=== PATIENT | female | born 1970 | race Caucasian/White ===

== ENCOUNTER 2016-09-12 12:58 | Outpatient (RCR) | payer BC ==
[~2016-09-12 12:58] MED LIST: FUROSEMIDE; LVT.1T; SRTR100T
== END 2016-12-11 | disposition home or self-care (01) ==
LOC: CARD 12:58
PROVIDERS: ATTEND Internal Medicine
DX: R00.2 Palpitations (principal)
CPT/HCPCS: 93225; 93226

== ENCOUNTER → 2017-03-07 | Outpatient (CLI) | payer BC ==
--- NOTE | 2017-03-08 17:05 | Diagnostic Imaging Report ---
EXAMINATION: Bilateral digital screening mammogram with CAD. The current study was also evaluated with a Computer Aided Detection (CAD) system. INDICATION: Screening. No current complaints stated on the questionnaire. COMPARISON: 04/11/16. FINDINGS: The breasts are composed of scattered fibroglandular densities. There is an asymmetry in the medial aspect of the right breast with architectural distortion seen. This appears more prominent compared to the prior exam and appears to correlate with asymmetry along the central aspect of the right breast. Stable circumscribed nodule in the posterior aspect of the right breast is likely related to a benign process such as cysts or intramammary lymph nodes. The left breast demonstrates no definite change. IMPRESSION: Focal asymmetry in the central medial aspect of the right breast with the appearance of architectural distortion is seen. Focal compression views and ultrasound evaluation is recommended. ACR BI-RADS Category 0: Incomplete. (Needs additional imaging evaluation). Result letter will be mailed to the patient. Note: At least 10% of breast cancer is not imaged by mammography. Dictated by: Dictated on workstation # [id number]
== END ==
LOC: RAD 12:56
PROVIDERS: ATTEND Internal Medicine
DX: Z12.31 Encounter for screening mammogram for malignant neoplasm of breast (principal)
CPT/HCPCS: 77067

== ENCOUNTER → 2017-03-20 | Outpatient (CLI) | payer BC ==
--- NOTE | 2017-03-20 14:39 | Diagnostic Imaging Report ---
EXAMINATION: Right breast diagnostic mammogram with tomography. The current study was also evaluated with a Computer Aided Detection (CAD) system. COMPARISON: 04/11/2016. FINDINGS: There is a focal asymmetry with architectural distortion seen in the medial aspect of the right breast which persists on focal compression view in the CC projection. This is less apparent, however, on the MLO view and in the lateral projection. The etiology is uncertain. IMPRESSION: Persistent medial right breast architectural distortion. Ultrasound evaluation is pending. ACR BI-RADS Category 0: Incomplete. (Needs additional imaging evaluation). Result letter will be mailed to the patient. Note: At least 10% of breast cancer is not imaged by mammography. Dictated by: Dictated on workstation # [id number]
--- NOTE | 2017-03-20 15:25 | Diagnostic Imaging Report ---
EXAMINATION: Ultrasound of the right breast. INDICATION: Architectural distortion in the medial aspect of the right breast. FINDINGS: At the 1:30 o'clock position 7 cm from the nipple, there is a slightly heterogenous hypoechoic indeterminate poorly defined lesion with shadowing. There is no internal vascularity demonstrated. This is not clearly seen when scanned from different angles and is questioned to correlate with the abnormality seen on mammography. There is otherwise no mass or suspicious lesion seen in the 4 quadrants or retroareolar region. IMPRESSION: Poorly defined nonspecific hypoechoic area at the 1:30 position 7 cm from the nipple with shadowing but no internal vascularity. This probably correlates with the region of abnormality seen on mammography; however, its better seen on mammography and a stereotactic biopsy is recommended. The findings and recommendations were discussed personally with the patient at the time of dictation. A voice message about the findings was left for Dr. Gee by Dr. Tapia at the time of dictation. ACR BI-RADS Category 4B: Intermediate suspicion of malignancy. Result letter will be mailed to the patient. Report faxed to Dr. Gee at 3:23 p.m. 03/20/2017/cb Dictated by: Dictated on workstation # [id number]
== END ==
LOC: RAD 13:57
PROVIDERS: ATTEND Internal Medicine
DX: N63.12 Unspecified lump in the right breast, upper inner quadrant (principal)
CPT/HCPCS: 76641

== ENCOUNTER → 2017-03-23 | Outpatient (CLI) | payer BC ==
[~2017-03-23] VITALS: Ht 170.2 cm; Wt 112.0 kg
[~2017-03-23] MED LIST changes: +LIDOCAINE 1% INJ 20 ML (XYLOCAINE) VIAL INJ ONE; +NS (IVPB) 100 ML ONE
[2017-03-23 12:43] VITALS: BP 114/68
[2017-03-23 13:40] VITALS: BP 121/78
--- NOTE | 2017-03-24 08:28 | Diagnostic Imaging Report ---
EXAMINATION: Vacuum-assisted stereotactic breast biopsy , with clip placement, and specimen radiographs. INDICATION: Right breast architectural distortion . CONSENT: Informed consent was obtained from the patient. The risks, benefits, potential complications and alternatives were reviewed and all questions answered to the patient's satisfaction. PROCEDURE: The patient is positioned on the stereotactic mammography machine in sitting position. Prior mammograms were reviewed and based on the position of the architectural distortion, the appropriate the approach is selected. Initial stereotactic mammographic views at -15 and +15 degrees where performed and confirmation of localization of the lesion is performed. The localization is performed with the stereotactic software assistance and confirmed visually to match the area of interest. After satisfactory localization with initial stereotactic mammographic images, the biopsy tract approach is selected from superior to inferior with the skin site determined. After sterile preparation and draping, 1% lidocaine was utilized for local anesthesia. After confirming the targeted architectural distortion along the right breast, multiple vacuum-assisted stereotactic biopsies, with 8-gauge core needles, were performed. The specimen radiograph demonstrates no calcifications. Subsequently, a marking clip was placed at the site of the biopsy. Subsequently CC and lateral views mammogram is performed and confirms proper positioning of the clip. The patient tolerated the procedure well with no immediate complications. IMPRESSION: Successful stereotactic vacuum-assisted right breast biopsy for architectural distortion along the medial right breast. A marking clip was left in place. The specimen radiograph demonstrates the calcifications. Dictated by: Dictated on workstation # [id number]
== END ==
LOC: RAD 12:24
PROVIDERS: ATTEND Internal Medicine
DX: R92.8 Other abnormal and inconclusive findings on diagnostic imaging of breast (principal)
CPT/HCPCS: 19081

== ENCOUNTER 2017-04-11 08:54 | Outpatient (CLI) | payer BC ==
[~2017-04-11] VITALS: Ht 170.2 cm; Wt 125.2 kg
[~2017-04-11 08:54] MED LIST changes: -LIDOCAINE 1% INJ 20 ML (XYLOCAINE) VIAL INJ ONE; -NS (IVPB) 100 ML ONE
[2017-04-11] MEDS ORDERED: ESTR1PAT76 TD (10:46)
[2017-04-11] MEDS ORDERED: LEVO200T6 PO (10:46)
[2017-04-11] MEDS ORDERED: LIOT5TAB3 PO (10:46)
== END 2017-04-11 10:48 ==
LOC: PREOP 08:54
PROVIDERS: ATTEND Surgery
DX: Z01.818 Encounter for other preprocedural examination (principal); R92.8 Other abnormal and inconclusive findings on diagnostic imaging of breast

== ENCOUNTER 2017-04-13 07:23 | Day surgery (SDC) | payer BC ==
[~2017-04-13] VITALS: Ht 170.2 cm; Wt 125.2 kg
[~2017-04-13 07:23] MED LIST changes: +ESTR1PAT76 TD; +LEVO200T6 PO; +LIOT5TAB3 PO
--- OUTSIDE RECORDS SUMMARY | 2017-04-13 07:29 | XMS REPORT | Clinical Summary ---
Author Author User, [facility] Address Unknown Phone Allergies, Adverse Reactions, Alerts Allergy Name Reaction Description Start Date Severity Status Provider CODEINE Gastrointestinal problems, e.g., nausea, vomiting, diarrhea 2001 Critical Active Fanny Gee Conditions or Problems Problem Name Problem Code Onset Date Status Entry Date Provider Comment Standard Description Annotate INSOMNIA, CHRONIC 780.52 Resolved Fanny Gee Insomnia, unspecified DEPRESSION 311 Active Fanny Gee Depressive disorder, not elsewhere classified ANXIETY 300.00 Resolved Fanny Gee Anxiety state, unspecified WEIGHT GAIN, ABNORMAL 783.1 Active Fanny Gee Abnormal weight gain COLD INTOLERANCE 780.9 Resolved Fanny Gee Other general symptoms 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 Fanny Gee Other specified congenital anomalies of skin PARESTHESIA 782.0 Resolved Fanny Gee Disturbance of skin sensation HYPOTHYROIDISM 244.9 Active Fanny Gee Unspecified hypothyroidism AMENORRHEA 626.0 Resolved Fanny Gee Absence of menstruation DIZZINESS 780.4 Resolved Fanny Gee Dizziness and giddiness OM, ACUTE SEROUS 381.01 Resolved Fanny Gee Acute serous otitis media VERTIGO 780.4 Resolved Fanny Gee Dizziness and giddiness HAIR LOSS 704.00 Resolved Fanny Gee Alopecia, unspecified PELVIC PAIN 625.9 Resolved Fanny Gee Unspecified symptom associated with female genital organs WELL WOMAN V70.0 Resolved Fanny Gee Routine general medical examination at a health care facility OTITIS MEDIA 382.9 Resolved Fanny Gee Unspecified otitis media left SINUSITIS 473.9 Resolved Fanny Gee Unspecified sinusitis (chronic) AMENORRHEA 626.0 Resolved Fanny Gee Absence of menstruation DERMATITIS, CONTACT, NOS 692.9 Resolved Fanny Gee Contact dermatitis and other eczema, unspecified cause SCIATICA/HERNIATED DISC 722.10 Resolved Fanny Gee Displacement of lumbar intervertebral disc without myelopathy INFLUENZA W/MANIFESTATION NEC 487.8 Resolved Fanny Gee Influenza with other manifestations COUGH 786.2 Resolved Fanny Gee Cough HYPERGLYCEMIA, MILD 790.6 Resolved Fanny Gee Other abnormal blood chemistry HYPERCHOLESTEROLEMIA 272.0 Active Fanny Gee Pure hypercholesterolemia CARDIOMEGALY 429.3 Resolved Fanny Gee Cardiomegaly SCIATICA/HERNIATED DISC 722.10 Resolved Fanny Gee Displacement of lumbar intervertebral disc without myelopathy CHEST PAIN, ATYPICAL 786.59 Resolved Fanny Gee Other chest pain GERD 530.81 Active Fanny Gee Esophageal reflux BACK PAIN, LUMBAR, WITH RADICULOPATHY 724.4 Resolved Fanny Gee Thoracic or lumbosacral neuritis or radiculitis, unspecified CELLULITIS 682.9 Resolved Fanny Gee Cellulitis and abscess of unspecified sites HEADACHE 784.0 Resolved Fanny Gee Headache UTI 599.0 Resolved Fanny Gee Urinary tract infection, site not specified SYMPTOM, PAIN, ABDOMINAL, RIGHT LWR QUADRANT 789.03 Resolved Fanny Gee Abdominal pain, right lower quadrant DYSFUNCTIONAL UTERINE BLEEDING 626.8 Resolved Fanny Gee Other disorders of menstruation and other abnormal bleeding from female genital tract ANEMIA NOS 285.9 Resolved Fanny Gee Anemia, unspecified MENOPAUSAL SYNDROME 627.0 Resolved Fanny Gee Premenopausal menorrhagia RHINITIS 472.0 Resolved Fanny Gee Chronic rhinitis CONSTIPATION, CHRONIC 564.09 Resolved Fanny Gee Other constipation SINUSITIS, SPHENOIDAL, ACUTE 461.3 Resolved Fanny Gee Acute sphenoidal sinusitis VAGINITIS, ATROPHIC 627.3 Resolved Fanny Gee Postmenopausal atrophic vaginitis HEADACHE 784.0 Resolved Fanny Gee Headache MALE PATTERN BALDNESS 704.00 Resolved Fanny Gee Alopecia, unspecified LEG PAIN, RIGHT 729.5 Resolved Fanny Gee Pain in limb LUMBAR RADICULOPATHY, RIGHT 724.4 Active Fanny Gee Thoracic or lumbosacral neuritis or radiculitis, unspecified MUSCLE PAIN 729.1 Resolved Fanny Gee Myalgia and myositis, unspecified BRONCHITIS 490 Resolved Fanny Gee Bronchitis, not specified as acute or chronic PNEUMONIA 486 Resolved Fanny Gee Pneumonia, organism unspecified DEHYDRATION 276.51 Resolved Fanny Gee Dehydration HAIR LOSS 704.00 Resolved Fanny Gee Alopecia, unspecified CELLULITIS 682.9 Resolved Fanny Gee Cellulitis and abscess of unspecified sites EAR PAIN, BILATERAL 388.70 Resolved Fanny Gee Otalgia, unspecified SHOULDER PAIN 719.41 Resolved Fanny Gee Pain in joint involving shoulder region FOOT PAIN, LEFT 729.5 Resolved Fanny Gee Pain in limb MIGRAINE VARIANT 346.20 Active Fanny Gee Variants of migraine, not elsewhere classified, without mention of intractable migraine, without mention of status migrainosus LIPOMA, SKIN 214.1 Resolved Fanny Gee Lipoma of other skin and subcutaneous tissue ALLERGIC RHINITIS, SEASONAL 477.0 Resolved Fanny Gee Allergic rhinitis due to pollen HRT V07.4 Active Fanny Gee Hormone replacement therapy (postmenopausal) UNSPECIFIED VITAMIN D DEFICIENCY 268.9 Active Fanny Gee Unspecified vitamin D deficiency KNEE PAIN 719.46 Resolved Fanny Gee Pain in joint involving lower leg CERVICAL LYMPHADENOPATHY 785.6 Resolved Fanny Gee Enlargement of lymph nodes HEALTH SCREENING V70.0 Inactive Fanny Gee Routine general medical examination at a health care facility SINUSITIS, SPHENOIDAL, ACUTE 461.3 Inactive Fanny Gee Acute sphenoidal sinusitis BENIGN POSITIONAL VERTIGO 386.11 Inactive Fanny Gee Benign paroxysmal positional vertigo ACHILLES TENDINITIS 726.71 Resolved Fanny Gee Achilles bursitis or tendinitis SINUSITIS, SPHENOIDAL, ACUTE 461.3 Resolved Fanny Gee Acute sphenoidal sinusitis BRONCHITIS 490 Inactive Fanny Gee Bronchitis, not specified as acute or chronic UTI 599.0 Inactive Fanny Gee Urinary tract infection, site not specified HEALTH SCREENING V70.0 Resolved Fanny Gee Routine general medical examination at a health care facility SINUSITIS, SPHENOIDAL, ACUTE 461.3 Resolved Fanny Gee Acute sphenoidal sinusitis ELEVATED BLOOD PRESSURE WITHOUT DIAGNOSIS OF HYPERTENSION 796.2 Active Fanny Gee Elevated blood pressure reading without diagnosis of hypertension Medication List Medication Instructions Start Date Stop Date Generic Name NDC Status Provider Patient Instruction ESTRACE 1 MG TAB 1 PO daily ESTRADIOL 77617376370 Active Starr Aldridge VOLTAREN 75 MG EC TAB 1 PO BID prn DICLOFENAC SODIUM Active Fanny Gee POTASSIUM CHLORIDE 10 MEQ TBCR 1 PO daily prn POTASSIUM CHLORIDE 24221183549 Active Fanny Gee LASIX 20 MG TABS 1 PO daily prn FUROSEMIDE 73279611525 Active Fanny Gee PRAVACHOL 20 MG TAB 1 PO daily PRAVASTATIN SODIUM 28780308366 No Longer Active Fanny Gee CEFDINIR 300 MG CAPS 1 PO BID CEFDINIR 83756414597 No Longer Active aFnny CLEMONS'S NASAL SPRAY (DEXAMETHASONE, GENTAMICIN, SALINE) 2 puffs each nostril TID for [address] CLEMONS'S NASAL SPRAY ( DEXAMETHASONE, GENTAMICIN, SALINE) No Longer Active Fanny Kat Gee FLUTICASONE PROPIONATE 50 MCG/ACT SUSP 2 puffs each nostril daily FLUTICASONE PROPIONATE 79452272697 Active Fanny Kat Gee VALIUM 2 MG TAB 1 po QHS prn neck spasm DIAZEPAM 26334206434 No Longer Active Fanny Kat Gee XANAX 0.25 MG TABS 1 PO Q6hrs prn ALPRAZOLAM 60188072059 No Longer Active Fanny Kat Gee MULTIVITAMINS TABS 1 PO QD MULTIPLE VITAMIN 66224159089 No Longer Active Fanny Kat Gee PHENTERMINE HCL 37.5 MG CAPS 1 PO Daily PHENTERMINE HCL 12938471677 No Longer Active Fanny Kat Gee TESSALON 200 MG CAPS 1 PO TID prn cough BENZONATATE No Longer Active Fanny Kat Gee PYRIDIUM 200 MG TAB 1 PO TID prn urinary urgency PHENAZOPYRIDINE HCL 64123792653 No Longer Active Fanny Kat Gee AUGMENTIN 500-125 MG TAB 1 PO BID AMOXICILLIN-POT CLAVULANATE 49900170505 No Longer Active Fanny Kat Gee TOPAMAX 25 MG TABS 1 PO BID TOPIRAMATE 87613761474 Active Fanny Kat Gee MECLIZINE HCL 25 MG TAB 1 PO Q6hrs prn dizziness MECLIZINE HCL 86369353902 No Longer Active Fanny Kat Gee PERCOCET 10-325 MG TABS take 1 upto q 4 hours prn pain. OXYCODONE-ACETAMINOPHEN 56018307604 No Longer Active Fanny Kat Gee ULTRAM 50 MG TAB 1 po Q 6hrs prn pain TRAMADOL HCL 44181442382 No Longer Active Fanny Gee OMEPRAZOLE 20 MG CPDR 1 PO daily OMEPRAZOLE 88928938888 Active Starr CLEMONS'Roberta NASAL SPRAY (DEXAMETHASONE, GENTAMICIN, SALINE) 2 puffs each nostril TID for [address] HOPPER NASAL SPRAY ( DEXAMETHASONE, GENTAMICIN, SALINE) No Longer Active Fanny Gee BIOTIN 10 MG TABS 1 po daily BIOTIN 45687236886 No Longer Active Fanny Gee FLEXERIL 10 MG TAB 1 PO QHS prn neck pain CYCLOBENZAPRINE HCL 34974878715 No Longer Active Fanny Gee FLONASE 50 MCG/DOSE INHALANT 2 puffs each nostril daily FLONASE 50 MCG/DOSE INHALANT No Longer Active Fanny Gee PREMARIN 0.625 MG/GM CREA Apply as directed to affected areas ESTROGENS, CONJUGATED VAGINAL 84755885123 No Longer Active Fanny Gee TUMS 500 MG CHEW as needed at night CALCIUM CARBONATE ANTACID 64308412392 No Longer Active Fanny Gee LIPITOR 20 MG TAB 1 PO QD ATORVASTATIN CALCIUM 63130734550 No Longer Active Fanny Gee SYNTHROID 200 MCG TABS 1 PO daily with 25 mcg to total 225 mcg daily LEVOTHYROXINE SODIUM 82819725044 Active Fanny Gee SYNTHROID 0.025 MG TAB 1 PO Daily along with 200 mcg to total 225 mcg daily LEVOTHYROXINE SODIUM 77016795175 Active Fanny Gee PREDNISONE 20 MG TAB 3 pills daily at once for 2 days, 2 pills daily at once for 2 days, 1 once daily for 2 days PREDNISONE 32561412516 No Longer Active Fanny Gee LORTAB 7.5-500 MG/15ML ELIX 1 tsp q 4-6 hrs prn HYDROCODONE-ACETAMINOPHEN 99863354833 No Longer Active Fanny Kat Gee PHENTERMINE HCL 37.5 MG CAPS 1 PO Daily PHENTERMINE HCL 97893680120 No Longer Active Fanny Kat Gee TAMIFLU 75 MG CAPS 1 PO BID OSELTAMIVIR PHOSPHATE 01921206639 No Longer Active Melany Garcia LIPITOR 20 MG TAB 1 PO QD ATORVASTATIN CALCIUM 02783065637 No Longer Active Starr [place] ZOLOFT 50 MG TAB 1 PO daily with 100mg to equal 150mg daily SERTRALINE HCL 05244786216 Active Starr Aldridge ZOLOFT 100 MG TAB 1 PO daily with 50mg dosing to equal 150mg PO daily SERTRALINE HCL 09547558523 Active Starr Aldridge TOPAMAX 25 MG TABS 1 PO BID TOPIRAMATE 76769271069 No Longer Active Fanny Kat Gee PREDNISONE 20 MG TAB 2 pills at once for 2 days then 1 pill daily for 2 days PREDNISONE 69651482469 No Longer Active Fanny Kat Gee VITAMIN D 1000 UNIT TABS 2 PO Daily CHOLECALCIFEROL 65803960989 Active Starr Luis Carlos RITALIN 10 MG TABS 1 PO BID METHYLPHENIDATE HCL 09997325556 No Longer Active Fanny Kat Gee CYTOMEL 5 MCG TABS 1 PO daily LIOTHYRONINE SODIUM 81596360393 Active Fanny Kat Gee SOMA 350 MG TABS 1 PO qhs prn CARISOPRODOL 67363528479 Active Fanny Kat Gee BIAXIN XL PAC 500 MG TB24 2 pills at same time daily for 7 days CLARITHROMYCIN 10940650946 No Longer Active Fanny Kat Gee HYDROCODONE-HOMATROPINE SYRP 1 teaspoon PO Q4-6 hrs prn HYDROCODONE-HOMATROPINE SYRP 93905539730 No Longer Active Fanny Kat Gee AUGMENTIN 500-125 MG TAB 1 PO BID AMOXICILLIN-POT CLAVULANATE 72886525229 No Longer Active Fanny Kat Gee PHENTERMINE HCL 37.5 MG CAPS 1 PO Daily PHENTERMINE HCL 50720541880 No Longer Active Fanny Kat Gee PYRIDIUM 200 MG TABS 1 po TID PHENAZOPYRIDINE HCL 28803524730 No Longer Active Fanny Kat Gee PREMARIN 0.625 MG TABS 1 PO daily ESTROGENS CONJUGATED 03470954995 No Longer Active Fanny Kat Gee ZOLOFT 50 MG TABS 1 PO daily with 100mg tablet to egual 150mg SERTRALINE HCL 48944505543 No Longer Active Fanny Kat Gee ESTRADERM 0.1 MG/24HR PTTW 1 patch every week ESTRADIOL 71396616141 No Longer Active Fanny Kat Gee PHENTERMINE HCL 37.5 MG CAPS 1 PO Daily PHENTERMINE HCL 37302025147 No Longer Active Fanny Kat Gee LORTAB 5 5-500 MG TABS 1 to 2 PO Q6hrs prn ACETAMINOPHEN-HYDROCODONE 12864801574 No Longer Active Fanny Kat Gee EXCEDRIN MIGRAINE 250-250-65 MG TABS as directed [id number] 99788756877 No Longer Active Fanny Kat Gee REGLAN 10 MG TAB 1 PO Q 6 hours prn dizziness METOCLOPRAMIDE HCL 63518516881 No Longer Active Fanny Kat Gee PREDNISONE 20 MG TAB 3 pills daily at once for 2 days, 2 pills daily at once for 2 days, 1 once daily for 2 days PREDNISONE 07315389783 No Longer Active Fanny Kat Gee THA 180 MG TABS 1 PO QD for allergies FEXOFENADINE HCL 06697211912 No Longer Active Fanny Kat CLEMONS'Roberta NASAL SPRAY (DEXAMETHASONE, GENTAMICIN, SALINE) 2 puffs each nostril TID for [address] HOPPER NASAL SPRAY ( DEXAMETHASONE, GENTAMICIN, SALINE) No Longer Active Fanny Kat Gee AUGMENTIN 500-125 MG TAB 1 PO BID AMOXICILLIN-POT CLAVULANATE 96894859766 No Longer Active Fanny Kat Gee TRANSDERM-SCOP 1.5 MG PT72 1 patch behind ear every 3 days 12/12 SCOPOLAMINE BASE 40592305929 No Longer Active Fanny Kat Gee PREMARIN 0.3 MG TABS 1 PO daily ESTROGENS CONJUGATED 33356663764 No Longer Active Fanny Kat Gee KENALOG 0.1 % CREA Apply to ears sparingling daily as needed. TRIAMCINOLONE ACETONIDE 34480623934 No Longer Active Fanny Kat Gee LUNESTA 2 MG TABS 1 PO daily at HS as needed ESZOPICLONE 95131059280 No Longer Active Fanny Kat Gee LO/OVRAL 0.3-30 MG-MCG TABS as directed NORGESTREL-ETHINYL ESTRADIOL 06865935728 No Longer Active Fanny Kat Gee PREMARIN 0.625 MG TABS 1 PO daily ESTROGENS CONJUGATED 05823936720 No Longer Active Fanny Kat Gee VOLTAREN-XR 100 MG TB24 1 PO daily DICLOFENAC SODIUM 94561271509 No Longer Active Fanny Kat Gee FLEXERIL 10 MG TAB 1 PO QHS CYCLOBENZAPRINE HCL 15264501546 No Longer Active Fanny Kat Gee PYRIDIUM 200 MG TAB 1 PO TID for 3 days PHENAZOPYRIDINE HCL 53257547449 No Longer Active Fannylianna Gee LEVAQUIN 500 MG TAB 1 PO QD for 7 days LEVOFLOXACIN 24232398222 No Longer Active Fanny Kat Gee PRILOSEC 20 MG CAP CR 1 PO BID OMEPRAZOLE 88640585799 No Longer Active Fanny Kat Gee TAMIFLU 75 MG CAPS 1 PO BID for 5 days OSELTAMIVIR PHOSPHATE 69814304134 No Longer Active Fanny Kat Gee CODICLEAR DH 5-100 MG/5ML SYRP 5 cc Po Q4-6prn HYDROCODONE-GUAIFENESIN 26089302535 No Longer Active Fannylianna Gee HARRIS (DROSPIRENONE/ETHINYL ESTRADIOL) 3MG/20MCG as directed HARRIS (DROSPIRENONE/ETHINYL ESTRADIOL) 3MG/20MCG No Longer Active Jazlyn Figueroa TAM 28 3-0.03 MG TABS as directed DROSPIRENONE- ETHINYL ESTRADIOL 53450030005 No Longer Active Fannylianna Gee ORTHO TRI-CYCLEN LO 0.025 MG TABS as directed NORGESTIMATE-ETHINYL ESTRADIOL 85025028475 No Longer Active Fannylianna Gee AUGMENTIN 500-125 MG TAB 1 PO BID AMOXICILLIN-POT CLAVULANATE 75308512884 No Longer Active Fannylianna CLEMONS'S NASAL SPRAY (DEXAMETHASONE, GENTAMICIN, SALINE) 2 puffs each nostril BID DR. CLEMONS'S NASAL SPRAY (DEXAMETHASONE, GENTAMICIN, SALINE) No Longer Active Fanny Gee PRILOSEC 20 MG CAP CR 1 PO QD OMEPRAZOLE 02170557676 No Longer Active Fannylianna Gee WELLBUTRIN XL 150 MG TB24 1/2 daily BUPROPION HCL 81510973459 No Longer Active Fanny Kat Gee LEXAPRO 10 MG TABS 1 daily ESCITALOPRAM OXALATE 37815792463 No Longer Active Fanny Kat Gee TANAFED DP 2.5-75 MG/5ML SUSP 10-20 cc po q 12 hrs. prn DEXCHLORPHEN GUSTAFSON-PSE GUSTAFSON 90361987032 No Longer Active Fanny Kat Gee RYNATAN 9-25 MG TABS 1-2 pills po Q 12 hrs prn CHLORPHEN GUSTAFSON-PHENYLEPH GUSTAFSON 47582059224 No Longer Active Fanny Kat Gee ANTIVERT 25 MG TABS 1 tab q 6h prn MECLIZINE HCL 13557264745 No Longer Active Fanny Kat Gee AFRIN NASAL SPRAY 0.05 % SOLN 1 puff each nostril BID OXYMETAZOLINE HCL 96583631338 No Longer Active Fanny Kat Gee WELLBUTRIN SR 150 MG TBCR 1 PO QAM BUPROPION HCL 70764370392 No Longer Active Fanny Kat Gee WELLBUTRIN XL 300 MG TB24 1 po daily BUPROPION HCL 59930313643 No Longer Active Fanny Kat Gee LASIX 20 MG TABS 1 po qod FUROSEMIDE 74528518810 No Longer Active Fanny Kat Gee POTASSIUM CHLORIDE 10 MEQ TBCR 1 tab po daily prn along with Lasix POTASSIUM CHLORIDE 60789936868 No Longer Active Fanny Kat Gee AMBIEN 10 MG TABS 1 PO QHS prn ZOLPIDEM TARTRATE 26002734479 No Longer Active Fanny Kat Gee Vital Signs Date Name Value Unit Range Description blood pressure, diastolic - 8462-4 110 mm[Hg] BP choi blood pressure, systolic - 8480-6 140 mm[Hg] BP sys pulse rate E&M - 8867-4 72 /min Heart rate respiratory rate E&M - 9279-1 14 /min Resp rate temperature E&M 98.6 [degF] Body temperature blood pressure, diastolic - 8462-4 84 mm[Hg] BP choi blood pressure, systolic - 8480-6 138 mm[Hg] BP sys pulse rate E&M - 8867-4 64 /min Heart rate respiratory rate E&M - 9279-1 14 /min Resp rate temperature E&M 97.3 [degF] Body temperature weight E&M - 3141-9 267 [lb_av] Weight Measured blood pressure, diastolic - 8462-4 74 mm[Hg] BP choi blood pressure, systolic - 8480-6 128 mm[Hg] BP sys pulse rate E&M - 8867-4 74 /min Heart rate respiratory rate E&M - 9279-1 12 /min Resp rate weight E&M - 3141-9 265 [lb_av] Weight Measured Diagnostic Results Date Name Value Unit Range Description Clinical Lists Update: CBC,CMP,FLP,TSH,Free T4 - Chemistry albumin, serum 4.1 g/dL alanine aminotransferase (SGPT), serum 15 U/L urea nitrogen, blood 13 mg/dL calcium, serum 9.2 mg/dL chloride, serum 107 mmol/L cholesterol, serum 252 mg/dL carbon dioxide, venous blood 18 mmol/L creatinine, serum 0.87 mg/dL thyroxine, serum, free 1.1 ng/dL HDL cholesterol, serum 57 mg/dL thyroid stimulating hormone, serum 3.21 u[iU]/mL LDL cholesterol, serum 163 mg/dL potassium, serum 4.7 mmol/L protein, total, serum 6.8 g/dL aspartate aminotransferase (SGOT), serum 18 U/L Estimated Glomerular Filtration Rate (calc) 81 mL/min/1.73m2 glucose, plasma fasting 108 mg/dL cholesterol/HDL ratio, serum, percent 4.4 sodium, serum 139 mmol/L triglyceride, serum, fasting 161 mg/dL bilirubin, serum, total 0.3 mg/dL alkaline phosphatase, serum 107 U/L Clinical Lists Update: CBC,CMP,FLP,TSH,Free T4 - Hematology hemoglobin, blood 14.0 g/dL hematocrit, blood 41.1 % platelet count 301 10*3/mm3 erythrocyte (RBC) count 4.51 10*6/mm3 leukocyte count, blood 8.7 10*3/mm3 mean corpuscular volume, RBC 91.3 fL red blood cell distribution width 13.7 % Clinical Lists Update: CMP,FLP,TSH,FREE T4 - Chemistry potassium, serum 4.2 mmol/L albumin, serum 4.3 g/dL aspartate aminotransferase (SGOT), serum 36 U/L alanine aminotransferase (SGPT), serum 57 U/L bilirubin, serum, total 0.4 mg/dL sodium, serum 135 mmol/L glucose, plasma fasting 108 mg/dL Estimated Glomerular Filtration Rate (calc) 105 mL/min/1.73m2 creatinine, serum 0.70 mg/dL carbon dioxide, venous blood 20 mmol/L chloride, serum 106 mmol/L calcium, serum 8.8 mg/dL urea nitrogen, blood 16 mg/dL alkaline phosphatase, serum 111 U/L protein, total, serum 6.9 g/dL Encounters Code Encounter Date Provider Facility CPT-16134 Ofc Vst, Est Level IV 17:11:39 CDT Fannylianna Granados Gee, DO, FACP CPT-07552 Ofc Vst, Est Level III 15:00:51 [facility] Fanny Granados Marlen, DO, FACP CPT-65014 Ofc Vst, Est Level III 18:56:53 CDT Fanny Kat Granados Marlen, DO, FACP CPT-21820 Ofc Vst, Est Level IV 15:50:14 DAIRY NUTRITION SPECIALIST Fanny Gee [facility] CPT-51589 Ofc Vst, Est Level III 20:51:14 DA[facility] NUTRITION SPECIALIST Fanny Granados Marlen, DO, FACP CPT-09871 Ofc Vst, Est Level III 16:54:39 [facility]UTR[facility] SPECIALIST Fanny Granados Marlen, DO, FACP CPT-73224 Ofc Vst, Est Level IV 14:17:18 DA[facility]UTR[facility] SPECIALIST Fanny Granados Marlen, DO, FACP CPT-45066 Ofc Vst, Est Level III 18:54:59 CDT Fannylianna Gee [facility] CPT-54900 Ofc Vst, Est Level III 17:02:21 CDT Fanny Stephens Gee Fanny Granados Marlen, DO, FACP CPT-08255 Ofc Vst, Est Level III 20:38:41 CDT Fanny Kat Granados Marlen, DO, FACP CPT-89431 Ofc Vst, Est Level III 16:12:14 CDT Fanny Stephens Gee Fanny Roberta Marlen, DO, FACP CPT-44893 Ofc Vst, Est Level IV 16:33:19 DA[facility]UTRITION SPECIALIST Fanny Stephens Marlen Fanny Roberta Marlen, DO, FACP CPT-76605 Ofc Vst, Est Level IV 14:45:33 DA[facility] NUTRITION SPECIALIST Fanny Katjohn Granados Gee, DO, FACP CPT-81737 Ofc Vst, Est Level IV 10:54:54 CDT Fanny Kat Granados Gee, DO, FACP CPT-69533 Ofc Vst, Est Level IV 10:49:11 CDT Fanny Kat Granados Gee, DO, FACP CPT-92780 Ofc Vst, Est Level IV 10:56:58 CDT Fanny Kat Granados Gee, DO, FACP CPT-83692 Ofc Vst, Est Level IV 11:41:19 CDT Fanny Kat Gee [facility] CPT-04801 Ofc Vst, Est Level III 13:40:53 CDT Fanny Kat Granados Marlen, DO, FACP CPT-32429 Ofc Vst, Est Level IV 10:26:27 CDT Fanny Kat Granados Gee, DO, FACP CPT-89997 Ofc Vst, Est Level IV 11:15:45 CDT Fanny Kat Granados Gee, DO, FACP CPT-94635 Ofc Vst, Est Level IV 11:16:53 [facility] SPECIALIST Fanny Granados Gee, DO, FACP CPT-55144 Ofc Vst, Est Level IV 11:28:33 DA[facility]UTRITION SPECIALIST Fanny Granados Gee, DO, FACP CPT-61138 Ofc Vst, Est Level III 09:49:10 DA[facility] SPECIALIST Fanny Kat Granados Gee, DO, FACP CPT-07406 Ofc Vst, Est Level IV 15:49:05 CDT Fannylianna Granados Gee, DO, FACP CPT-84571 Ofc Vst, Est Level IV 15:51:31 CDT Fannylianna Gee [facility] CPT-10729 Ofc Vst, Est Level IV 16:47:19 CDT Fanny Kat Granados Gee, DO, FACP CPT-08219 Ofc Vst, Est Level IV 13:33:43 CDT Fanny Kat Mccurdyi S Gee, DO, FACP CPT-63683 Ofc Vst, Est Level IV 14:07:16 CDT Fanny Kat Escobedo S Gee, DO, FACP CPT-31333 Ofc Vst, Est Level V 11:27:11 CDT Fanny Kat Mccurdyi S Gee, DO, FACP CPT-61972 Ofc Vst, Est Level IV 13:43:55 CDT Fanny Kat Mccurdyi S Gee, DO, FACP CPT-23788 Ofc Vst, Est Level V 15:24:57 DA[facility] NUTRITION SPECIALIST Fanny Kat Granados Marlen, DO, FACP CPT-15093 Ofc Vst, Est Level III 14:58:05 CDT Fanny Kat Granados Gee, DO, FACP CPT-62484 Ofc Vst, Est Level IV 15:58:13 CDT Fanny Kat Escobedo S Marlen, DO, FACP CPT-85546 Ofc Vst, Est Level IV 13:05:38 CDT Fanny Kat Granados Marlen, DO, FACP CPT-73528 Ofc Vst, Est Level III 17:07:21 CDT Fanny Kat Escobedo S Marlen, DO, FACP CPT-84145 Ofc Vst, Est Level III 14:58:29 CDT Fanny Kat Cuetoner Fanny S Marlen, DO, FACP CPT-98342 Ofc Vst, Est Level IV 16:06:24 CDT Fanny Kat Escobedo S Marlen, DO, FACP CPT-00835 Ofc Vst, Est Level III 09:33:36 DA[facility]UTRITION SPECIALIST Fanny Kat Marlen Fanny Roberta Marlen, DO, FACP CPT-78136 Ofc Vst, Est Level IV 10:26:53 DAIR[facility] NUTRITION SPECIALIST Fanny Stephens Marlen Fanny Roberta Marlen, DO, FACP CPT-90974 Ofc Vst, Est Level IV 15:05:57 DA[facility] NUTRITION SPECIALIST Fanny Stephens Marlen Fanny Roberta Marlen, DO, FACP CPT-85521 Ofc Vst, Est Level IV 10:19:01 CDT Fannylianna Stephens Gee Fanny Granados Marlen, DO, FACP CPT-70673 Ofc Vst, Est Level IV 09:02:12 CDT Fanny Kat Marlen Gee, DO, FACP CPT-51547 Ofc Vst, Est Level IV 10:02:49 CDT Fannylianna Stephens Marlen Gee, DO, FACP CPT-72213 Ofc Vst, Est Level IV 10:50:47 CDT Fannylianna Gee [facility] [place] CPT-42611 Ofc Vst, Est Level IV 16:08:32 CDT Fanny Gee [facility] [place] CPT-03861 Ofc Vst, Est Level III 15:15:07 [employer] [employer] SPECIALIST Fanny Gee [facility] [place] CPT-03600 Ofc Vst, Est Level IV 10:48:07 DA[employer] NUTR[employer] SPECIALIST Fanny Gee [facility] [place] CPT-77329 Ofc Vst, Est Level IV 13:57:22 DA[employer] NUTRITION SPECIALIST Fanny Gee [facility] [place] CPT-14976 Ofc Vst, Est Level III 15:02:05 CDT Fanny Gee [facility] [place] CPT-08717 Ofc Vst, Est Level II 11:50:49 DA[employer] NUTRITION SPECIALIST Fanny Gee [facility] [place] CPT-36430 Ofc Vst, Est Level IV 12:35:56 DA[employer] NUTR[employer] SPECIALIST Fanny Gee [facility] [place] CPT-51548 Ofc Vst, Est Level IV 18:55:46 CDT [facility] Katjohn Gee [facility] [place] CPT-50607 Ofc Vst, Est Level III 12:38:26 DA[employer] NUTRITION SPECIALIST [facility] Kat Gee [facility] [place] CPT-85943 Ofc Vst, Est Level III 17:46:49 DA[employer] NUTRITION SPECIALIST [facility] Kat Gee [facility] [place] CPT-95656 Ofc Vst, Est Level III 19:52:42 CDT Fanny Kat Gee [facility] [place] CPT-08253 Ofc Vst, Est Level IV 16:59:09 CDT [facility] Katjohn Gee [facility] [place] CPT-18478 Ofc Vst, Est Level III 12:31:11 CDT [facility] Kat Gee [facility] [place] CPT-63341 Ofc Vst, New Level III 11:16:59 CDT [facility] Katjohn Gee [facility] [place] Procedures Code Procedure Name Date Entry Date Standard Description CPT-36317 Preventive, Est, (40-64) 17:46:08 CDT CPT-77830 Preventive, Est, (40-64) 13:13:00 CDT CPT-89257 Preventive, Est, (18-39) 15:11:32 CDT
[2017-04-13] MEDS ORDERED: LIDOCAINE 1% INJ 20 ML (XYLOCAINE) VIAL ONE ×2 (07:30→09:50)
--- OUTSIDE RECORDS SUMMARY | 2017-04-13 07:30 | XMS REPORT | Clinical Summary ---
[...] 1 MG TAB 1 PO daily ESTRADIOL [id number] Active Fanny Gee VOLTAREN 75 MG EC TAB 1 PO BID prn DICLOFENAC SODIUM Active Fanny Gee POTASSIUM CHLORIDE 10 MEQ TBCR 1 PO daily prn POTASSIUM CHLORIDE 25844583029 Active Fanny Gee LASIX 20 MG TABS 1 PO daily prn FUROSEMIDE 53549516581 Active Fanny Gee PRAVACHOL 20 MG TAB 1 PO daily PRAVASTATIN SODIUM 74818669521 No Longer Active Fanny Gee CEFDINIR 300 MG CAPS 1 PO BID CEFDINIR 83377413143 No Longer Active Fanny CLEMONS'S NASAL SPRAY (DEXAMETHASONE, GENTAMICIN, SALINE) 2 puffs each nostril TID for [address] CLEMONS'S NASAL SPRAY ( DEXAMETHASONE, GENTAMICIN, SALINE) No Longer Active Fanny Kat Gee FLUTICASONE PROPIONATE 50 MCG/ACT SUSP 2 puffs each nostril daily FLUTICASONE PROPIONATE 95493071974 Active Fanny Kat Gee VALIUM 2 MG TAB 1 po QHS prn neck spasm DIAZEPAM 49493172753 No Longer Active Fanny Kat Gee XANAX 0.25 MG TABS 1 PO Q6hrs prn ALPRAZOLAM 73248604078 No Longer Active Fanny Kat Gee MULTIVITAMINS TABS 1 PO QD MULTIPLE VITAMIN 98287956701 No Longer Active Fanny Kat Gee PHENTERMINE HCL 37.5 MG CAPS 1 PO Daily PHENTERMINE HCL 10112661393 No Longer Active Fanny Kat Gee TESSALON 200 MG CAPS 1 PO TID prn cough BENZONATATE No Longer Active Fanny Kat Gee PYRIDIUM 200 MG TAB 1 PO TID prn urinary urgency PHENAZOPYRIDINE HCL 87041040637 No Longer Active Fanny Kat Gee AUGMENTIN 500-125 MG TAB 1 PO BID AMOXICILLIN-POT CLAVULANATE 55737693599 No Longer Active Fanny Kat Gee TOPAMAX 25 MG TABS 1 PO BID TOPIRAMATE 78724389774 Active Fanny Kat Gee MECLIZINE HCL 25 MG TAB 1 PO Q6hrs prn dizziness MECLIZINE HCL 22816415169 No Longer Active Fanny Kat Gee PERCOCET 10-325 MG TABS take 1 upto q 4 hours prn pain. OXYCODONE-ACETAMINOPHEN 33183381330 No Longer Active Fanny Kat Gee ULTRAM 50 MG TAB 1 po Q 6hrs prn pain TRAMADOL HCL 45435051549 No Longer Active Fanny Gee OMEPRAZOLE 20 MG CPDR 1 PO daily OMEPRAZOLE 72227990798 Active Fanny CLEMONS'Roberta NASAL SPRAY (DEXAMETHASONE, GENTAMICIN, SALINE) 2 puffs each nostril TID for [address] HOPPER NASAL SPRAY ( DEXAMETHASONE, GENTAMICIN, SALINE) No Longer Active Fanny Gee BIOTIN 10 MG TABS 1 po daily BIOTIN 18902403534 No Longer Active Fanny Gee FLEXERIL 10 MG TAB 1 PO QHS prn neck pain CYCLOBENZAPRINE HCL 28757029489 No Longer Active Fanny Gee FLONASE 50 MCG/DOSE INHALANT 2 puffs each nostril daily FLONASE 50 MCG/DOSE INHALANT No Longer Active Fanny Gee PREMARIN 0.625 MG/GM CREA Apply as directed to affected areas ESTROGENS, CONJUGATED VAGINAL 78362088427 No Longer Active Fanny Gee TUMS 500 MG CHEW as needed at night CALCIUM CARBONATE ANTACID 81886363836 No Longer Active Fanny Gee LIPITOR 20 MG TAB 1 PO QD ATORVASTATIN CALCIUM 87494524253 No Longer Active Fanny Gee SYNTHROID 200 MCG TABS 1 PO daily with 25 mcg to total 225 mcg daily LEVOTHYROXINE SODIUM 50845737807 Active Fanny Gee SYNTHROID 0.025 MG TAB 1 PO Daily along with 200 mcg to total 225 mcg daily LEVOTHYROXINE SODIUM 09560130686 Active Fanny Gee PREDNISONE 20 MG TAB 3 pills daily at once for 2 days, 2 pills daily at once for 2 days, 1 once daily for 2 days PREDNISONE 79015115764 No Longer Active Fanny Gee LORTAB 7.5-500 MG/15ML ELIX 1 tsp q 4-6 hrs prn HYDROCODONE-ACETAMINOPHEN 22172789978 No Longer Active Fannylianna Gee PHENTERMINE HCL 37.5 MG CAPS 1 PO Daily PHENTERMINE HCL 99218532180 No Longer Active Fannylianna Gee TAMIFLU 75 MG CAPS 1 PO BID OSELTAMIVIR PHOSPHATE 24903140600 No Longer Active Melany Dukesinosa LIPITOR 20 MG TAB 1 PO QD ATORVASTATIN CALCIUM 26815585709 No Longer Active Starr Aldridge ZOLOFT 50 MG TAB 1 PO daily with 100mg to equal 150mg daily SERTRALINE HCL 85749904837 Active Fannylianna Gee ZOLOFT 100 MG TAB 1 PO daily with 50mg dosing to equal 150mg PO daily SERTRALINE HCL 12136401656 Active Fanny Kat Gee TOPAMAX 25 MG TABS 1 PO BID TOPIRAMATE 23666382480 No Longer Active Fannylianna Gee PREDNISONE 20 MG TAB 2 pills at once for 2 days then 1 pill daily for 2 days PREDNISONE 32379213755 No Longer Active Fanny Gee VITAMIN D 1000 UNIT TABS 2 PO Daily CHOLECALCIFEROL 45566219231 Active Starr Aldridge RITALIN 10 MG TABS 1 PO BID METHYLPHENIDATE HCL 50193425614 No Longer Active Fannylianna Gee CYTOMEL 5 MCG TABS 1 PO daily LIOTHYRONINE SODIUM 64820725739 Active Fanny Kat Gee SOMA 350 MG TABS 1 PO qhs prn CARISOPRODOL 37173588115 Active Fannylianna Gee BIAXIN XL PAC 500 MG TB24 2 pills at same time daily for 7 days CLARITHROMYCIN 58208138286 No Longer Active Fannylianna Gee HYDROCODONE-HOMATROPINE SYRP 1 teaspoon PO Q4-6 hrs prn HYDROCODONE-HOMATROPINE SYRP 71589909694 No Longer Active Fanny Kat Gee AUGMENTIN 500-125 MG TAB 1 PO BID AMOXICILLIN-POT CLAVULANATE 44484661173 No Longer Active Fanny Kat Gee PHENTERMINE HCL 37.5 MG CAPS 1 PO Daily PHENTERMINE HCL 35481796823 No Longer Active Fanny Kat Gee PYRIDIUM 200 MG TABS 1 po TID PHENAZOPYRIDINE HCL 46693034220 No Longer Active Fanny Kat Gee PREMARIN 0.625 MG TABS 1 PO daily ESTROGENS CONJUGATED 53531901161 No Longer Active Fanny Kat Gee ZOLOFT 50 MG TABS 1 PO daily with 100mg tablet to egual 150mg SERTRALINE HCL 40991982682 No Longer Active Fanny Kat Gee ESTRADERM 0.1 MG/24HR PTTW 1 patch every week ESTRADIOL 45215304613 No Longer Active Fanny Kat Gee PHENTERMINE HCL 37.5 MG CAPS 1 PO Daily PHENTERMINE HCL 74689906181 No Longer Active Fanny Kat Gee LORTAB 5 5-500 MG TABS 1 to 2 PO Q6hrs prn ACETAMINOPHEN-HYDROCODONE 13228063387 No Longer Active Fanny Kat Gee EXCEDRIN MIGRAINE 250-250-65 MG TABS as directed [id number] 94438107828 No Longer Active Fanny Kat Gee REGLAN 10 MG TAB 1 PO Q 6 hours prn dizziness METOCLOPRAMIDE HCL 33538380299 No Longer Active Fanny Kat Gee PREDNISONE 20 MG TAB 3 pills daily at once for 2 days, 2 pills daily at once for 2 days, 1 once daily for 2 days PREDNISONE 55771250436 No Longer Active Fanny Kat Gee THA 180 MG TABS 1 PO QD for allergies FEXOFENADINE HCL 52694933713 No Longer Active Fanny Kat CLEMONS'Roberta NASAL SPRAY (DEXAMETHASONE, GENTAMICIN, SALINE) 2 puffs each nostril TID for [address] HOPPER NASAL SPRAY ( DEXAMETHASONE, GENTAMICIN, SALINE) No Longer Active Fanny Kat Gee AUGMENTIN 500-125 MG TAB 1 PO BID AMOXICILLIN-POT CLAVULANATE 97920058126 No Longer Active Fanny Kat Gee TRANSDERM-SCOP 1.5 MG PT72 1 patch behind ear every 3 days 12/12 SCOPOLAMINE BASE 91510772131 No Longer Active Fanny Kat Gee PREMARIN 0.3 MG TABS 1 PO daily ESTROGENS CONJUGATED 21665028337 No Longer Active Fanny Kat Gee KENALOG 0.1 % CREA Apply to ears sparingling daily as needed. TRIAMCINOLONE ACETONIDE 75544105088 No Longer Active Fannylianna Gee LUNESTA 2 MG TABS 1 PO daily at HS as needed ESZOPICLONE 27493265787 No Longer Active Fanny Kat Gee LO/OVRAL 0.3-30 MG-MCG TABS as directed NORGESTREL-ETHINYL ESTRADIOL 33180149536 No Longer Active Fanny Kat Gee PREMARIN 0.625 MG TABS 1 PO daily ESTROGENS CONJUGATED 76791660527 No Longer Active Fanny Kat Gee VOLTAREN-XR 100 MG TB24 1 PO daily DICLOFENAC SODIUM 98804037661 No Longer Active Fanny Kat Gee FLEXERIL 10 MG TAB 1 PO QHS CYCLOBENZAPRINE HCL 76269010962 No Longer Active Fanny Kat Gee PYRIDIUM 200 MG TAB 1 PO TID for 3 days PHENAZOPYRIDINE HCL 34644352050 No Longer Active Fannylianna Gee LEVAQUIN 500 MG TAB 1 PO QD for 7 days LEVOFLOXACIN 17631399676 No Longer Active Fanny Kat Gee PRILOSEC 20 MG CAP CR 1 PO BID OMEPRAZOLE 84232314197 No Longer Active Fannylianna Gee TAMIFLU 75 MG CAPS 1 PO BID for 5 days OSELTAMIVIR PHOSPHATE 57545721017 No Longer Active Fanny Kat Gee CODICLEAR DH 5-100 MG/5ML SYRP 5 cc Po Q4-6prn HYDROCODONE-GUAIFENESIN 39108102405 No Longer Active Fannylianna Gee HARRIS (DROSPIRENONE/ETHINYL ESTRADIOL) 3MG/20MCG as directed HARRIS (DROSPIRENONE/ETHINYL ESTRADIOL) 3MG/20MCG No Longer Active Jazlyn Figueroa TAM 28 3-0.03 MG TABS as directed DROSPIRENONE- ETHINYL ESTRADIOL 27431144818 No Longer Active Fanny Gee ORTHO TRI-CYCLEN LO 0.025 MG TABS as directed NORGESTIMATE-ETHINYL ESTRADIOL 35993629548 No Longer Active Fannylianna Gee AUGMENTIN 500-125 MG TAB 1 PO BID AMOXICILLIN-POT CLAVULANATE 92146854049 No Longer Active Fannylianna CLEMONS'S NASAL SPRAY (DEXAMETHASONE, GENTAMICIN, SALINE) 2 puffs each nostril BID DR. CLEMONS'S NASAL SPRAY (DEXAMETHASONE, GENTAMICIN, SALINE) No Longer Active Fanny Gee PRILOSEC 20 MG CAP CR 1 PO QD OMEPRAZOLE 80812504862 No Longer Active Fannylianna Gee WELLBUTRIN XL 150 MG TB24 1/2 daily BUPROPION HCL 19484803131 No Longer Active Fanny Kat Gee LEXAPRO 10 MG TABS 1 daily ESCITALOPRAM OXALATE 32173729854 No Longer Active Fanny Kat GUSTAFSONAFED DP 2.5-75 MG/5ML SUSP 10-20 cc po q 12 hrs. prn DEXCHLORPHEN GUSTAFSON-PSE GUSTAFSON 94375163545 No Longer Active Fanny Kat Marlen RYNATAN 9-25 MG TABS 1-2 pills po Q 12 hrs prn CHLORPHEN GUSTAFSON-PHENYLEPH GUSTAFSON 95192484672 No Longer Active Fanny Kat Gee ANTIVERT 25 MG TABS 1 tab q 6h prn MECLIZINE HCL 59413529235 No Longer Active Fanny Kat Gee AFRIN NASAL SPRAY 0.05 % SOLN 1 puff each nostril BID OXYMETAZOLINE HCL 88051072613 No Longer Active Fanyn Kat Gee WELLBUTRIN SR 150 MG TBCR 1 PO QAM BUPROPION HCL 54953111912 No Longer Active Fanny Kat Gee WELLBUTRIN XL 300 MG TB24 1 po daily BUPROPION HCL 79843585903 No Longer Active Fanny Kat Gee LASIX 20 MG TABS 1 po qod FUROSEMIDE 02341083024 No Longer Active Fanny Kat Gee POTASSIUM CHLORIDE 10 MEQ TBCR 1 tab po daily prn along with Lasix POTASSIUM CHLORIDE 53704002321 No Longer Active Fanny Kat Gee AMBIEN 10 MG TABS 1 PO QHS prn ZOLPIDEM TARTRATE 09931649219 No Longer Active Fanny Kat Gee Vital [...] Clinical Lists Update: CBC,CMP,FLP,TSH,Free T4 - Chemistry Estimated Glomerular Filtration Rate (calc) 81 mL/min/1.73m2 thyroxine, serum, free 1.1 ng/dL glucose, plasma fasting 108 mg/dL alkaline phosphatase, serum 107 U/L cholesterol/HDL ratio, serum, percent 4.4 sodium, serum 139 mmol/L urea nitrogen, blood 13 mg/dL triglyceride, serum, fasting 161 mg/dL bilirubin, serum, total 0.3 mg/dL calcium, serum 9.2 mg/dL alanine aminotransferase (SGPT), serum 15 U/L chloride, serum 107 mmol/L aspartate aminotransferase (SGOT), serum 18 U/L cholesterol, serum 252 mg/dL protein, total, serum 6.8 g/dL carbon dioxide, venous blood 18 mmol/L potassium, serum 4.7 mmol/L creatinine, serum 0.87 mg/dL LDL cholesterol, serum 163 mg/dL thyroid stimulating hormone, serum 3.21 u[iU]/mL HDL cholesterol, serum 57 mg/dL albumin, serum 4.1 g/dL Clinical Lists Update: CBC,CMP,FLP,TSH,Free T4 - Hematology hemoglobin, blood 14.0 g/dL hematocrit, blood 41.1 % platelet count 301 10*3/mm3 erythrocyte (RBC) count 4.51 10*6/mm3 leukocyte count, blood 8.7 10*3/mm3 mean corpuscular volume, RBC 91.3 fL red blood cell distribution width 13.7 % Clinical Lists Update: CMP,FLP,TSH,FREE T4 - Chemistry bilirubin, serum, total 0.4 mg/dL potassium, serum 4.2 mmol/L sodium, serum 135 mmol/L urea nitrogen, blood 16 mg/dL glucose, plasma fasting 108 mg/dL alkaline phosphatase, serum 111 U/L Estimated Glomerular Filtration Rate (calc) 105 mL/min/1.73m2 albumin, serum 4.3 g/dL chloride, serum 106 mmol/L alanine aminotransferase (SGPT), serum 57 U/L aspartate aminotransferase (SGOT), serum 36 U/L carbon dioxide, venous blood 20 mmol/L protein, total, serum 6.9 g/dL creatinine, serum 0.70 mg/dL calcium, serum 8.8 mg/dL Encounters Code Encounter Date Provider Facility CPT-86142 Ofc Vst, Est Level IV 17:11:39 CDT Fannylianna Stephens Marlen Cuetoner, DO, FACP CPT-16296 Ofc Vst, Est Level III 15:00:51 [facility] Fanny Kat Marlen Gee, DO, FACP CPT-80351 Ofc Vst, Est Level III 18:56:53 CDT Fannylianna Stephens Marlen Gee, DO, FACP CPT-17691 Ofc Vst, Est Level IV 15:50:14 [facility] Fanny Kat Marlen [facility] CPT-72072 Ofc Vst, Est Level III 20:51:14 [facility] Fanny Kat Marlen Gee, DO, FACP CPT-04898 Ofc Vst, Est Level III 16:54:39 [facility] Fanny Kat Mareln Gee, DO, FACP CPT-39688 Ofc Vst, Est Level IV 14:17:18 [facility] Fanny Kat Marlen Gee, DO, FACP CPT-83893 Ofc Vst, Est Level III 18:54:59 CDT Fanny Kat Marlen [facility] CPT-64206 Ofc Vst, Est Level III 17:02:21 CDT Fannylianna Gee, DO, FACP CPT-94812 Ofc Vst, Est Level III 20:38:41 CDT Fanny Gee, DO, FACP CPT-42108 Ofc Vst, Est Level III 16:12:14 CDT Fanny Gee, DO, FACP CPT-99081 Ofc Vst, Est Level IV 16:33:19 [facility] Fanny Gee, DO, FACP CPT-03531 Ofc Vst, Est Level IV 14:45:33 [facility] Fanny Kat Granados Gee, DO, FACP CPT-99462 Ofc Vst, Est Level IV 10:54:54 CDT Fanny Kat Granados Gee, DO, FACP CPT-75814 Ofc Vst, Est Level IV 10:49:11 CDT Fanny Kat Granados Gee, DO, FACP CPT-78859 Ofc Vst, Est Level IV 10:56:58 CDT Fanny Kat Granados Gee, DO, FACP CPT-52712 Ofc Vst, Est Level IV 11:41:19 CDT Fanny Kat Gee [facility] CPT-57698 Ofc Vst, Est Level III 13:40:53 CDT Fanny Kat Granados Gee, DO, FACP CPT-27829 Ofc Vst, Est Level IV 10:26:27 CDT Fanny Kat Granados Gee, DO, FACP CPT-28912 Ofc Vst, Est Level IV 11:15:45 CDT Fanny Kat Granados Gee, DO, FACP CPT-39381 Ofc Vst, Est Level IV 11:16:53 [facility] Fanny Granados Gee, DO, FACP CPT-92133 Ofc Vst, Est Level IV 11:28:33 [facility] Fanny Kat Granados Gee, DO, FACP CPT-14592 Ofc Vst, Est Level III 09:49:10 [facility] Fanny Kat Escobedo S Gee, DO, FACP CPT-03306 Ofc Vst, Est Level IV 15:49:05 CDT Fanny Kat Granados Gee, DO, FACP CPT-79151 Ofc Vst, Est Level IV 15:51:31 CDT Fannylianna Gee [facility] CPT-48363 Ofc Vst, Est Level IV 16:47:19 CDT Fanny Kat Granados Gee, DO, FACP CPT-36046 Ofc Vst, Est Level IV 13:33:43 CDT Fanny Kat Granados Gee, DO, FACP CPT-16035 Ofc Vst, Est Level IV 14:07:16 CDT Fanny Kat Granados Gee, DO, FACP CPT-16651 Ofc Vst, Est Level V 11:27:11 CDT Fanny Kat Granados Marlen, DO, FACP CPT-02106 Ofc Vst, Est Level IV 13:43:55 CDT Fanny Granados Marlen, DO, FACP CPT-68955 Ofc Vst, Est Level V 15:24:57 [facility] Fanny Kat Granados Marlen, DO, FACP CPT-82756 Ofc Vst, Est Level III 14:58:05 CDT Fanny Kat Granados Marlen, DO, FACP CPT-95108 Ofc Vst, Est Level IV 15:58:13 CDT Fanny Granados Marlen, DO, FACP CPT-16003 Ofc Vst, Est Level IV 13:05:38 CDT Fannylianna Granados Marlen, DO, FACP CPT-64340 Ofc Vst, Est Level III 17:07:21 CDT Fannylianna Granados Gee, DO, FACP CPT-39696 Ofc Vst, Est Level III 14:58:29 CDT Fanny Granados Marlen, DO, FACP CPT-94210 Ofc Vst, Est Level IV 16:06:24 CDT Fannylianna Granados Marlen, DO, FACP CPT-41071 Ofc Vst, Est Level III 09:33:36 [facility] Fanny Kat Marlen Fanny Granados Marlen, DO, FACP CPT-06776 Ofc Vst, Est Level IV 10:26:53 [facility] Fanny Kat Cuetoner Fanny Granados Marlen, DO, FACP CPT-68361 Ofc Vst, Est Level IV 15:05:57 [facility] Fanny Kat Gee Fanny Granados Marlen, DO, FACP CPT-00271 Ofc Vst, Est Level IV 10:19:01 CDT Fanny Kat Marlen Fanny Granados Marlen, DO, FACP CPT-82376 Ofc Vst, Est Level IV 09:02:12 CDT Fanny Kat Gee Fanny Granados Marlen, DO, FACP CPT-35069 Ofc Vst, Est Level IV 10:02:49 CDT Fanny Kat Marlen Fanny Granados Marlen, DO, FACP CPT-11228 Ofc Vst, Est Level IV 10:50:[address] [facility] [place] CPT-02587 Ofc Vst, Est Level IV 16:08:[address] [facility] [place] CPT-15296 Ofc Vst, Est Level III 15:15:[address] [facility] [place] CPT-24893 Ofc Vst, Est Level IV 10:48:[address] [facility] [place] CPT-37842 Ofc Vst, Est Level IV 13:57:[address] [facility] [place] CPT-03622 Ofc Vst, Est Level III 15:02:[address] [facility] [place] CPT-66134 Ofc Vst, Est Level II 11:50:[address] [facility] [place] CPT-24970 Ofc Vst, Est Level IV 12:35:56 [facility] Fanny Gee [facility] [place] CPT-64199 Ofc Vst, Est Level IV 18:55:[address] [facility] [place] CPT-50640 Ofc Vst, Est Level III 12:38:[address] [address] [facility] [place] CPT-57029 Ofc Vst, Est Level III 17:46:49 [facility] Fanny Kat Gee [facility] [place] CPT-63028 Ofc Vst, Est Level III 19:52:42 CDT Fanny Kat Gee [facility] [place] CPT-45100 Ofc Vst, Est Level IV 16:59:09 CDT [facility] Katjohn Gee [facility] [place] CPT-47451 Ofc Vst, Est Level III 12:31:11 CDT [facility] Kat Gee [facility] [place] CPT-94782 Ofc Vst, New Level III 11:16:59 CDT [facility] Kat Gee [facility] [place] Procedures Code Procedure Name Date Entry Date Standard Description CPT-40422 Preventive, Est, (40-64) 17:46:08 CDT CPT-95877 Preventive, Est, (40-64) 13:13:00 CDT CPT-21873 Preventive, Est, (18-39) 15:11:32 CDT
--- OUTSIDE RECORDS SUMMARY | 2017-04-13 07:31 | XMS REPORT | Clinical Summary ---
Author Author User, [facility] Address Unknown Phone Allergies, Adverse Reactions, Alerts [...] 1 MG TAB 1 PO daily ESTRADIOL 04475180526 Active Fanny Gee VOLTAREN 75 MG EC TAB 1 PO BID prn DICLOFENAC SODIUM Active Fanny Gee POTASSIUM CHLORIDE 10 MEQ TBCR 1 PO daily prn POTASSIUM CHLORIDE 48589313660 Active Fanny Gee LASIX 20 MG TABS 1 PO daily prn FUROSEMIDE 71084173667 Active Fanny Gee PRAVACHOL 20 MG TAB 1 PO daily PRAVASTATIN SODIUM 14124277797 No Longer Active Fanny Gee CEFDINIR 300 MG CAPS 1 PO BID CEFDINIR 89787166182 No Longer Active Fanny CLEMONS'S NASAL SPRAY (DEXAMETHASONE, GENTAMICIN, SALINE) 2 puffs each nostril TID for [address] CLEMONS'S NASAL SPRAY ( DEXAMETHASONE, GENTAMICIN, SALINE) No Longer Active Fanny Kat Gee FLUTICASONE PROPIONATE 50 MCG/ACT SUSP 2 puffs each nostril daily FLUTICASONE PROPIONATE 86416520035 Active Fanny Kat Gee VALIUM 2 MG TAB 1 po QHS prn neck spasm DIAZEPAM 55838681179 No Longer Active Fanny Kat Gee XANAX 0.25 MG TABS 1 PO Q6hrs prn ALPRAZOLAM 81044264803 No Longer Active Fanny Kat Gee MULTIVITAMINS TABS 1 PO QD MULTIPLE VITAMIN 75650233774 No Longer Active Fannylianna Gee PHENTERMINE HCL 37.5 MG CAPS 1 PO Daily PHENTERMINE HCL 60267233781 No Longer Active Fanny Kat Gee TESSALON 200 MG CAPS 1 PO TID prn cough BENZONATATE No Longer Active Fanny Kat Gee PYRIDIUM 200 MG TAB 1 PO TID prn urinary urgency PHENAZOPYRIDINE HCL 36115625114 No Longer Active Fannylianna Gee AUGMENTIN 500-125 MG TAB 1 PO BID AMOXICILLIN-POT CLAVULANATE 84918708125 No Longer Active Fannylianna Gee TOPAMAX 25 MG TABS 1 PO BID TOPIRAMATE 91170043710 Active Fanny Kat Gee MECLIZINE HCL 25 MG TAB 1 PO Q6hrs prn dizziness MECLIZINE HCL 81760298938 No Longer Active Fanny Kat Gee PERCOCET 10-325 MG TABS take 1 upto q 4 hours prn pain. OXYCODONE-ACETAMINOPHEN 92362447525 No Longer Active Fanny Kat Gee ULTRAM 50 MG TAB 1 po Q 6hrs prn pain TRAMADOL HCL 10196785604 No Longer Active Fanny Gee OMEPRAZOLE 20 MG CPDR 1 PO daily OMEPRAZOLE 91924213583 Active Fanny CLEMONS'Roberta NASAL SPRAY (DEXAMETHASONE, GENTAMICIN, SALINE) 2 puffs each nostril TID for [address] HOPPER NASAL SPRAY ( DEXAMETHASONE, GENTAMICIN, SALINE) No Longer Active Fanny Gee BIOTIN 10 MG TABS 1 po daily BIOTIN 69768465124 No Longer Active Fanny Gee FLEXERIL 10 MG TAB 1 PO QHS prn neck pain CYCLOBENZAPRINE HCL 71816594344 No Longer Active Fanny Gee FLONASE 50 MCG/DOSE INHALANT 2 puffs each nostril daily FLONASE 50 MCG/DOSE INHALANT No Longer Active Fanny Gee PREMARIN 0.625 MG/GM CREA Apply as directed to affected areas ESTROGENS, CONJUGATED VAGINAL 49564113043 No Longer Active Fanny Gee TUMS 500 MG CHEW as needed at night CALCIUM CARBONATE ANTACID 13301889756 No Longer Active Fanny Gee LIPITOR 20 MG TAB 1 PO QD ATORVASTATIN CALCIUM 17196890316 No Longer Active Fanny Gee SYNTHROID 200 MCG TABS 1 PO daily with 25 mcg to total 225 mcg daily LEVOTHYROXINE SODIUM 66328962676 Active Fanny Gee SYNTHROID 0.025 MG TAB 1 PO Daily along with 200 mcg to total 225 mcg daily LEVOTHYROXINE SODIUM 62926702173 Active Fanny Gee PREDNISONE 20 MG TAB 3 pills daily at once for 2 days, 2 pills daily at once for 2 days, 1 once daily for 2 days PREDNISONE 12270892488 No Longer Active Fanny Gee LORTAB 7.5-500 MG/15ML ELIX 1 tsp q 4-6 hrs prn HYDROCODONE-ACETAMINOPHEN 78581565385 No Longer Active Fannylianna Gee PHENTERMINE HCL 37.5 MG CAPS 1 PO Daily PHENTERMINE HCL 92636460525 No Longer Active Fannylianna Gee TAMIFLU 75 MG CAPS 1 PO BID OSELTAMIVIR PHOSPHATE 20163636296 No Longer Active Melany Garcia LIPITOR 20 MG TAB 1 PO QD ATORVASTATIN CALCIUM 09189611583 No Longer Active Starr Aldridge ZOLOFT 50 MG TAB 1 PO daily with 100mg to equal 150mg daily SERTRALINE HCL 92845706369 Active Fanny Kat Gee ZOLOFT 100 MG TAB 1 PO daily with 50mg dosing to equal 150mg PO daily SERTRALINE HCL 91452647969 Active Fanny Kat Gee TOPAMAX 25 MG TABS 1 PO BID TOPIRAMATE 68051608054 No Longer Active Fannylianna Gee PREDNISONE 20 MG TAB 2 pills at once for 2 days then 1 pill daily for 2 days PREDNISONE 60346296351 No Longer Active Fannylianna Gee VITAMIN D 1000 UNIT TABS 2 PO Daily CHOLECALCIFEROL 30655670077 Active Starr Aldridge RITALIN 10 MG TABS 1 PO BID METHYLPHENIDATE HCL 07228411770 No Longer Active Fanny Kat Gee CYTOMEL 5 MCG TABS 1 PO daily LIOTHYRONINE SODIUM 86767794516 Active Fanny Kat Gee SOMA 350 MG TABS 1 PO qhs prn CARISOPRODOL 87844959597 Active Fannylianna Gee BIAXIN XL PAC 500 MG TB24 2 pills at same time daily for 7 days CLARITHROMYCIN 33259488355 No Longer Active Fannylianna Gee HYDROCODONE-HOMATROPINE SYRP 1 teaspoon PO Q4-6 hrs prn HYDROCODONE-HOMATROPINE SYRP 04999775741 No Longer Active Fanny Kat Gee AUGMENTIN 500-125 MG TAB 1 PO BID AMOXICILLIN-POT CLAVULANATE 88274708886 No Longer Active Fanny Kat Gee PHENTERMINE HCL 37.5 MG CAPS 1 PO Daily PHENTERMINE HCL 32635639055 No Longer Active Fanny Kat Gee PYRIDIUM 200 MG TABS 1 po TID PHENAZOPYRIDINE HCL 12826138172 No Longer Active Fanny Kat Gee PREMARIN 0.625 MG TABS 1 PO daily ESTROGENS CONJUGATED 15073005655 No Longer Active Fanny Kat Gee ZOLOFT 50 MG TABS 1 PO daily with 100mg tablet to egual 150mg SERTRALINE HCL 36708491654 No Longer Active Fanny Kat Gee ESTRADERM 0.1 MG/24HR PTTW 1 patch every week ESTRADIOL 15804602184 No Longer Active Fanny Kat Gee PHENTERMINE HCL 37.5 MG CAPS 1 PO Daily PHENTERMINE HCL 33948238558 No Longer Active Fanny Kat Gee LORTAB 5 5-500 MG TABS 1 to 2 PO Q6hrs prn ACETAMINOPHEN-HYDROCODONE 73650209697 No Longer Active Fanny Kat Gee EXCEDRIN MIGRAINE 250-250-65 MG TABS as directed [id number] 51987998332 No Longer Active Fanny Kat Gee REGLAN 10 MG TAB 1 PO Q 6 hours prn dizziness METOCLOPRAMIDE HCL 11136321156 No Longer Active Fanny Kat Gee PREDNISONE 20 MG TAB 3 pills daily at once for 2 days, 2 pills daily at once for 2 days, 1 once daily for 2 days PREDNISONE 84623231683 No Longer Active Fanny Kat Gee THA 180 MG TABS 1 PO QD for allergies FEXOFENADINE HCL 71782159254 No Longer Active Fanny Kat CLEMONS'Roberta NASAL SPRAY (DEXAMETHASONE, GENTAMICIN, SALINE) 2 puffs each nostril TID for [address] HOPPER NASAL SPRAY ( DEXAMETHASONE, GENTAMICIN, SALINE) No Longer Active Fanny Kat Gee AUGMENTIN 500-125 MG TAB 1 PO BID AMOXICILLIN-POT CLAVULANATE 97046113400 No Longer Active Fanny Kat Gee TRANSDERM-SCOP 1.5 MG PT72 1 patch behind ear every 3 days 12/12 SCOPOLAMINE BASE 88015951510 No Longer Active Fanny Kat Gee PREMARIN 0.3 MG TABS 1 PO daily ESTROGENS CONJUGATED 99519436933 No Longer Active Fanny Kat Gee KENALOG 0.1 % CREA Apply to ears sparingling daily as needed. TRIAMCINOLONE ACETONIDE 16261116144 No Longer Active Fannylianna Gee LUNESTA 2 MG TABS 1 PO daily at HS as needed ESZOPICLONE 30953542716 No Longer Active Fanny Kat Gee LO/OVRAL 0.3-30 MG-MCG TABS as directed NORGESTREL-ETHINYL ESTRADIOL 07055451171 No Longer Active Fanny Kat Gee PREMARIN 0.625 MG TABS 1 PO daily ESTROGENS CONJUGATED 72173930553 No Longer Active Fanny Kat Gee VOLTAREN-XR 100 MG TB24 1 PO daily DICLOFENAC SODIUM 30444883234 No Longer Active Fanny Kat Gee FLEXERIL 10 MG TAB 1 PO QHS CYCLOBENZAPRINE HCL 60129514616 No Longer Active Fanny Kat Gee PYRIDIUM 200 MG TAB 1 PO TID for 3 days PHENAZOPYRIDINE HCL 24444761358 No Longer Active Fannylianna Gee LEVAQUIN 500 MG TAB 1 PO QD for 7 days LEVOFLOXACIN 01651964129 No Longer Active Fanny Kat Gee PRILOSEC 20 MG CAP CR 1 PO BID OMEPRAZOLE 11132124190 No Longer Active Fanyn Kat Gee TAMIFLU 75 MG CAPS 1 PO BID for 5 days OSELTAMIVIR PHOSPHATE 44754831996 No Longer Active Fanny Kat Gee CODICLEAR DH 5-100 MG/5ML SYRP 5 cc Po Q4-6prn HYDROCODONE-GUAIFENESIN 99009841221 No Longer Active Fannylianna Gee HARRIS (DROSPIRENONE/ETHINYL ESTRADIOL) 3MG/20MCG as directed HARRIS (DROSPIRENONE/ETHINYL ESTRADIOL) 3MG/20MCG No Longer Active Jazyln Figueroa TAM 28 3-0.03 MG TABS as directed DROSPIRENONE- ETHINYL ESTRADIOL 54018446287 No Longer Active Fanny Gee ORTHO TRI-CYCLEN LO 0.025 MG TABS as directed NORGESTIMATE-ETHINYL ESTRADIOL 26001783227 No Longer Active Fannylianna Gee AUGMENTIN 500-125 MG TAB 1 PO BID AMOXICILLIN-POT CLAVULANATE 99198368391 No Longer Active Fannylianna CLEMONS'S NASAL SPRAY (DEXAMETHASONE, GENTAMICIN, SALINE) 2 puffs each nostril BID DR. CLEMONS'S NASAL SPRAY (DEXAMETHASONE, GENTAMICIN, SALINE) No Longer Active Fanny Gee PRILOSEC 20 MG CAP CR 1 PO QD OMEPRAZOLE 75420216837 No Longer Active Fannylianna Gee WELLBUTRIN XL 150 MG TB24 1/2 daily BUPROPION HCL 35989233203 No Longer Active Fanny Kat Gee LEXAPRO 10 MG TABS 1 daily ESCITALOPRAM OXALATE 33920362653 No Longer Active Fanny Kat GUSTAFSONAFED DP 2.5-75 MG/5ML SUSP 10-20 cc po q 12 hrs. prn DEXCHLORPHEN GUSTAFSON-PSE GUSTAFSON 45129919807 No Longer Active Fanny Kat eGe RYNATAN 9-25 MG TABS 1-2 pills po Q 12 hrs prn CHLORPHEN GUSTAFSON-PHENYLEPH GUSTAFSON 95185626072 No Longer Active Fanny Kat Gee ANTIVERT 25 MG TABS 1 tab q 6h prn MECLIZINE HCL 71627320275 No Longer Active Fanny Kat Gee AFRIN NASAL SPRAY 0.05 % SOLN 1 puff each nostril BID OXYMETAZOLINE HCL 65343849950 No Longer Active Fanny Kat Gee WELLBUTRIN SR 150 MG TBCR 1 PO QAM BUPROPION HCL 40378254498 No Longer Active Fanny Kat Gee WELLBUTRIN XL 300 MG TB24 1 po daily BUPROPION HCL 29014345039 No Longer Active Fanny Kat Gee LASIX 20 MG TABS 1 po qod FUROSEMIDE 90490311187 No Longer Active Fanny Kat Gee POTASSIUM CHLORIDE 10 MEQ TBCR 1 tab po daily prn along with Lasix POTASSIUM CHLORIDE 51557942396 No Longer Active Fanny Kat Gee AMBIEN 10 MG TABS 1 PO QHS prn ZOLPIDEM TARTRATE 57837711114 No Longer Active Fanny Kat Gee Vital [...] mg/dL Encounters Code Encounter Date Provider Facility CPT-31783 Ofc Vst, Est Level IV 17:11:39 CDT Fannylianna Cuetoner Fanny Roberta Gee, DO, FACP CPT-74431 Ofc Vst, Est Level III 15:00:51 MEDICAL ARTIST Fanny Stephens Marlen Cuetoner, DO, FACP CPT-60905 Ofc Vst, Est Level III 18:56:53 CDT Fannylianna Mccurdylianna Gee, DO, FACP CPT-48055 Ofc Vst, Est Level IV 15:50:14 MEDICAL ARTIST Fanny Stephens [facility] CPT-32042 Ofc Vst, Est Level III 20:51:14 MEDICAL ARTIST Fanyn Kat Marlen eGe, DO, FACP CPT-05219 Ofc Vst, Est Level III 16:54:39 MEDICAL ARTIST Fanny Stephens Marlen Gee, DO, FACP CPT-80933 Ofc Vst, Est Level IV 14:17:18 MEDICAL ARTIST Fanny Stephens Marlen Gee, DO, FACP CPT-36196 Ofc Vst, Est Level III 18:54:59 CDT Fanny Stephens [facility] CPT-88067 Ofc Vst, Est Level III 17:02:21 CDT Fanny Kat Marlen Gee, DO, FACP CPT-81363 Ofc Vst, Est Level III 20:38:41 CDT Fanny Kat Marlen Gee, DO, FACP CPT-80497 Ofc Vst, Est Level III 16:12:14 CDT Fanny Katjohn Gee, DO, FACP CPT-09002 Ofc Vst, Est Level IV 16:33:19 MEDICAL ARTIST Fanny Katjohn Gee, DO, FACP CPT-15745 Ofc Vst, Est Level IV 14:45:33 MEDICAL ARTIST Fannylianna Granados Gee, DO, FACP CPT-04799 Ofc Vst, Est Level IV 10:54:54 CDT Fanny Kat Granados Gee, DO, FACP CPT-49151 Ofc Vst, Est Level IV 10:49:11 CDT Fanny Kat Granados Gee, DO, FACP CPT-84528 Ofc Vst, Est Level IV 10:56:58 CDT Fanny Kat Granados Gee, DO, FACP CPT-17871 Ofc Vst, Est Level IV 11:41:19 CDT Fanny Kat Gee [facility] CPT-98908 Ofc Vst, Est Level III 13:40:53 CDT Fanny Kat Granados Gee, DO, FACP CPT-46749 Ofc Vst, Est Level IV 10:26:27 CDT Fanny Kat Granados Gee, DO, FACP CPT-01927 Ofc Vst, Est Level IV 11:15:45 CDT Fanny Kat Granados Gee, DO, FACP CPT-99174 Ofc Vst, Est Level IV 11:16:53 MEDICAL ARTIST Fanny Granados Gee, DO, FACP CPT-52625 Ofc Vst, Est Level IV 11:28:33 MEDICAL ARTIST Fanny Kat Granados Gee, DO, FACP CPT-57392 Ofc Vst, Est Level III 09:49:10 MEDICAL ARTIST Fanny Granados Gee, DO, FACP CPT-88205 Ofc Vst, Est Level IV 15:49:05 CDT Fannylianna Granados Gee, DO, FACP CPT-91046 Ofc Vst, Est Level IV 15:51:31 CDT Fannylianna Gee [facility] CPT-26449 Ofc Vst, Est Level IV 16:47:19 CDT Fannylianna Granados Gee, DO, FACP CPT-97420 Ofc Vst, Est Level IV 13:33:43 CDT Fanny Granados Gee, DO, FACP CPT-14707 Ofc Vst, Est Level IV 14:07:16 CDT Fanny Kat Granados Gee, DO, FACP CPT-22137 Ofc Vst, Est Level V 11:27:11 CDT Fanny Kat Granados Marlen, DO, FACP CPT-95853 Ofc Vst, Est Level IV 13:43:55 CDT Fanny Granados Marlen, DO, FACP CPT-17696 Ofc Vst, Est Level V 15:24:57 MEDICAL ARTIST Fannylianna Granados Marlen, DO, FACP CPT-12182 Ofc Vst, Est Level III 14:58:05 CDT Fannylianna Granados Marlen, DO, FACP CPT-79608 Ofc Vst, Est Level IV 15:58:13 CDT Fanny Granados Marlen, DO, FACP CPT-65208 Ofc Vst, Est Level IV 13:05:38 CDT Fannylianna Granados Marlen, DO, FACP CPT-18362 Ofc Vst, Est Level III 17:07:21 CDT Fannylianna Granados Gee, DO, FACP CPT-33362 Ofc Vst, Est Level III 14:58:29 CDT Fanny Granados Gee, DO, FACP CPT-07544 Ofc Vst, Est Level IV 16:06:24 CDT Fannylianna Granados Marlen, DO, FACP CPT-05112 Ofc Vst, Est Level III 09:33:36 MEDICAL ARTIST Fanny Kat Marlen Escobedo Roberta Marlen, DO, FACP CPT-62246 Ofc Vst, Est Level IV 10:26:53 MEDICAL ARTIST Fanny Kta Marlen Mccurdyi S Gee, DO, FACP CPT-74846 Ofc Vst, Est Level IV 15:05:57 MEDICAL ARTIST Fanny Kat Marlen Fanny S Marlen, DO, FACP CPT-99142 Ofc Vst, Est Level IV 10:19:01 CDT Fanny Kat Marlen Escobedo S Marlen, DO, FACP CPT-25044 Ofc Vst, Est Level IV 09:02:12 CDT Fanny Kat Marlen Escobedo S Marlen, DO, FACP CPT-05664 Ofc Vst, Est Level IV 10:02:49 CDT Fanny Katjohn Gee, DO, FACP CPT-95813 Ofc Vst, Est Level IV 10:50:47 CDT Fannylianna Gee [facility] [place] CPT-68493 Ofc Vst, Est Level IV 16:08:32 CDT Fanny Gee [facility] [place] CPT-28485 Ofc Vst, Est Level III 15:15:07 MEDICAL ARTIST Fanny Gee [facility] [place] CPT-23629 Ofc Vst, Est Level IV 10:48:07 MEDICAL ARTIST Fanny Gee [facility] [place] CPT-17184 Ofc Vst, Est Level IV 13:57:22 MEDICAL ARTIST Fanny Gee [facility] [place] CPT-25690 Ofc Vst, Est Level III 15:02:05 CDT Fanny Gee [facility] [place] CPT-05499 Ofc Vst, Est Level II 11:50:49 MEDICAL ARTIST Fanny Gee [facility] [place] CPT-23096 Ofc Vst, Est Level IV 12:35:56 MEDICAL ARTIST Fanny Gee [facility] [place] CPT-14610 Ofc Vst, Est Level IV 18:55:46 CDT [facility] Kat Gee [facility] [place] CPT-28782 Ofc Vst, Est Level III 12:38:26 MEDICAL ARTIST Fanny Kat Gee [facility] [place] CPT-85751 Ofc Vst, Est Level III 17:46:49 MEDICAL ARTIST [facility] Kat Gee [facility] [place] CPT-45381 Ofc Vst, Est Level III 19:52:42 CDT Fanny Kat Gee [facility] [place] CPT-19692 Ofc Vst, Est Level IV 16:59:09 CDT [facility] Kat Gee [facility] [place] CPT-50580 Ofc Vst, Est Level III 12:31:11 CDT [facility] Kat Gee [facility] [place] CPT-80076 Ofc Vst, New Level III 11:16:59 CDT [facility] Kat Gee [facility] [place] Procedures Code Procedure Name Date Entry Date Standard Description CPT-13080 Preventive, Est, (40-64) 17:46:08 CDT CPT-49071 Preventive, Est, (40-64) 13:13:00 CDT CPT-53182 Preventive, Est, (18-39) 15:11:32 CDT
--- OUTSIDE RECORDS SUMMARY | 2017-04-13 07:32 | XMS REPORT | Clinical Summary ---
Author Author User, [place] [facility] Address Unknown Phone Allergies, Adverse Reactions, Alerts [...] 1 MG TAB 1 PO daily ESTRADIOL [id number] Active Fanny Gee VOLTAREN 75 MG EC TAB 1 PO BID prn DICLOFENAC SODIUM Active Fanny Gee POTASSIUM CHLORIDE 10 MEQ TBCR 1 PO daily prn POTASSIUM CHLORIDE 99445943472 Active Fanny Gee LASIX 20 MG TABS 1 PO daily prn FUROSEMIDE 57581845335 Active Fanny Gee PRAVACHOL 20 MG TAB 1 PO daily PRAVASTATIN SODIUM 25234001084 No Longer Active Fanny Gee CEFDINIR 300 MG CAPS 1 PO BID CEFDINIR 12150085119 No Longer Active Fanny CLEMONS'S NASAL SPRAY (DEXAMETHASONE, GENTAMICIN, SALINE) 2 puffs each nostril TID for [address] CLEMONS'S NASAL SPRAY ( DEXAMETHASONE, GENTAMICIN, SALINE) No Longer Active Fanny Kat Gee FLUTICASONE PROPIONATE 50 MCG/ACT SUSP 2 puffs each nostril daily FLUTICASONE PROPIONATE 01161683271 Active Fanny Kat Gee VALIUM 2 MG TAB 1 po QHS prn neck spasm DIAZEPAM 04976138091 No Longer Active Fanny Kat Gee XANAX 0.25 MG TABS 1 PO Q6hrs prn ALPRAZOLAM 16720503816 No Longer Active Fanny Kat Gee MULTIVITAMINS TABS 1 PO QD MULTIPLE VITAMIN 61046348097 No Longer Active Fannylianna Gee PHENTERMINE HCL 37.5 MG CAPS 1 PO Daily PHENTERMINE HCL 92922786866 No Longer Active Fanny Kat Gee TESSALON 200 MG CAPS 1 PO TID prn cough BENZONATATE No Longer Active Fanny Kat Gee PYRIDIUM 200 MG TAB 1 PO TID prn urinary urgency PHENAZOPYRIDINE HCL 43223647207 No Longer Active Fannylianna Gee AUGMENTIN 500-125 MG TAB 1 PO BID AMOXICILLIN-POT CLAVULANATE 05744748792 No Longer Active Fannylianna Gee TOPAMAX 25 MG TABS 1 PO BID TOPIRAMATE 35545226431 Active Fanny Kat Gee MECLIZINE HCL 25 MG TAB 1 PO Q6hrs prn dizziness MECLIZINE HCL 38888717424 No Longer Active Fanny Kat Gee PERCOCET 10-325 MG TABS take 1 upto q 4 hours prn pain. OXYCODONE-ACETAMINOPHEN 09765233222 No Longer Active Fanny Kat Gee ULTRAM 50 MG TAB 1 po Q 6hrs prn pain TRAMADOL HCL 11412999769 No Longer Active Fanny Gee OMEPRAZOLE 20 MG CPDR 1 PO daily OMEPRAZOLE 70962167990 Active Fanny CLEMONS'Roberta NASAL SPRAY (DEXAMETHASONE, GENTAMICIN, SALINE) 2 puffs each nostril TID for [address] HOPPER NASAL SPRAY ( DEXAMETHASONE, GENTAMICIN, SALINE) No Longer Active Fanny Gee BIOTIN 10 MG TABS 1 po daily BIOTIN 52214068080 No Longer Active Fanny Gee FLEXERIL 10 MG TAB 1 PO QHS prn neck pain CYCLOBENZAPRINE HCL 18052946058 No Longer Active Fanny Gee FLONASE 50 MCG/DOSE INHALANT 2 puffs each nostril daily FLONASE 50 MCG/DOSE INHALANT No Longer Active Fanny Gee PREMARIN 0.625 MG/GM CREA Apply as directed to affected areas ESTROGENS, CONJUGATED VAGINAL 33198102904 No Longer Active Fanny Gee TUMS 500 MG CHEW as needed at night CALCIUM CARBONATE ANTACID 71910949548 No Longer Active Fanny Gee LIPITOR 20 MG TAB 1 PO QD ATORVASTATIN CALCIUM 89681734240 No Longer Active Fanny Gee SYNTHROID 200 MCG TABS 1 PO daily with 25 mcg to total 225 mcg daily LEVOTHYROXINE SODIUM 81959267325 Active Fanny Gee SYNTHROID 0.025 MG TAB 1 PO Daily along with 200 mcg to total 225 mcg daily LEVOTHYROXINE SODIUM 37656685569 Active Fanny Gee PREDNISONE 20 MG TAB 3 pills daily at once for 2 days, 2 pills daily at once for 2 days, 1 once daily for 2 days PREDNISONE 74723368647 No Longer Active Fanny Gee LORTAB 7.5-500 MG/15ML ELIX 1 tsp q 4-6 hrs prn HYDROCODONE-ACETAMINOPHEN 34270552370 No Longer Active Fannylianna Gee PHENTERMINE HCL 37.5 MG CAPS 1 PO Daily PHENTERMINE HCL 28349003471 No Longer Active Fannylianna Gee TAMIFLU 75 MG CAPS 1 PO BID OSELTAMIVIR PHOSPHATE 64118465257 No Longer Active Melany Garcia LIPITOR 20 MG TAB 1 PO QD ATORVASTATIN CALCIUM 70070821871 No Longer Active Starr Aldridge ZOLOFT 50 MG TAB 1 PO daily with 100mg to equal 150mg daily SERTRALINE HCL 60987586696 Active Fanny Kat Gee ZOLOFT 100 MG TAB 1 PO daily with 50mg dosing to equal 150mg PO daily SERTRALINE HCL 82758409135 Active Fanny Kat Gee TOPAMAX 25 MG TABS 1 PO BID TOPIRAMATE 57644553230 No Longer Active Fannylianna Gee PREDNISONE 20 MG TAB 2 pills at once for 2 days then 1 pill daily for 2 days PREDNISONE 22738977328 No Longer Active Fannylianna Gee VITAMIN D 1000 UNIT TABS 2 PO Daily CHOLECALCIFEROL 78977140729 Active Starr Aldridge RITALIN 10 MG TABS 1 PO BID METHYLPHENIDATE HCL 35242271980 No Longer Active Fanny Kat Gee CYTOMEL 5 MCG TABS 1 PO daily LIOTHYRONINE SODIUM 90122856787 Active Fanny Kat Gee SOMA 350 MG TABS 1 PO qhs prn CARISOPRODOL 84033050237 Active Fannylianna Gee BIAXIN XL PAC 500 MG TB24 2 pills at same time daily for 7 days CLARITHROMYCIN 56263197254 No Longer Active Fannylianna Gee HYDROCODONE-HOMATROPINE SYRP 1 teaspoon PO Q4-6 hrs prn HYDROCODONE-HOMATROPINE SYRP 15467333058 No Longer Active Fanny Kat Gee AUGMENTIN 500-125 MG TAB 1 PO BID AMOXICILLIN-POT CLAVULANATE 47437479773 No Longer Active Fanny Kat Gee PHENTERMINE HCL 37.5 MG CAPS 1 PO Daily PHENTERMINE HCL 53305514091 No Longer Active Fanny Kat Gee PYRIDIUM 200 MG TABS 1 po TID PHENAZOPYRIDINE HCL 28811449983 No Longer Active Fanny Kat Gee PREMARIN 0.625 MG TABS 1 PO daily ESTROGENS CONJUGATED 61370248718 No Longer Active Fanny Kat Gee ZOLOFT 50 MG TABS 1 PO daily with 100mg tablet to egual 150mg SERTRALINE HCL 56334331773 No Longer Active Fanny Kat Gee ESTRADERM 0.1 MG/24HR PTTW 1 patch every week ESTRADIOL 67610295759 No Longer Active Fanny Kat Gee PHENTERMINE HCL 37.5 MG CAPS 1 PO Daily PHENTERMINE HCL 47303200143 No Longer Active Fanny Kat Gee LORTAB 5 5-500 MG TABS 1 to 2 PO Q6hrs prn ACETAMINOPHEN-HYDROCODONE 59892430658 No Longer Active Fanny Kat Gee EXCEDRIN MIGRAINE 250-250-65 MG TABS as directed [id number] 17582687643 No Longer Active Fanny Kat Gee REGLAN 10 MG TAB 1 PO Q 6 hours prn dizziness METOCLOPRAMIDE HCL 82732861590 No Longer Active Fanny Kat Gee PREDNISONE 20 MG TAB 3 pills daily at once for 2 days, 2 pills daily at once for 2 days, 1 once daily for 2 days PREDNISONE 79674239195 No Longer Active Fanny Kat Gee THA 180 MG TABS 1 PO QD for allergies FEXOFENADINE HCL 33142807700 No Longer Active Fanny Kat CLEMONS'Roberta NASAL SPRAY (DEXAMETHASONE, GENTAMICIN, SALINE) 2 puffs each nostril TID for [address] HOPPER NASAL SPRAY ( DEXAMETHASONE, GENTAMICIN, SALINE) No Longer Active Fanny Kat Gee AUGMENTIN 500-125 MG TAB 1 PO BID AMOXICILLIN-POT CLAVULANATE 45309520218 No Longer Active Fanny Kat Gee TRANSDERM-SCOP 1.5 MG PT72 1 patch behind ear every 3 days 12/12 SCOPOLAMINE BASE 23782717597 No Longer Active Fanny Kat Gee PREMARIN 0.3 MG TABS 1 PO daily ESTROGENS CONJUGATED 84289008835 No Longer Active Fanny Kat Gee KENALOG 0.1 % CREA Apply to ears sparingling daily as needed. TRIAMCINOLONE ACETONIDE 91474182506 No Longer Active Fannylianna Gee LUNESTA 2 MG TABS 1 PO daily at HS as needed ESZOPICLONE 66307495586 No Longer Active Fanny Kat Gee LO/OVRAL 0.3-30 MG-MCG TABS as directed NORGESTREL-ETHINYL ESTRADIOL 89905328795 No Longer Active Fanny Kat Gee PREMARIN 0.625 MG TABS 1 PO daily ESTROGENS CONJUGATED 82673066595 No Longer Active Fanny Kat Gee VOLTAREN-XR 100 MG TB24 1 PO daily DICLOFENAC SODIUM 47731381634 No Longer Active Fanny Kat Gee FLEXERIL 10 MG TAB 1 PO QHS CYCLOBENZAPRINE HCL 48872421604 No Longer Active Fanny Kat Gee PYRIDIUM 200 MG TAB 1 PO TID for 3 days PHENAZOPYRIDINE HCL 30972481982 No Longer Active Fannylianna Gee LEVAQUIN 500 MG TAB 1 PO QD for 7 days LEVOFLOXACIN 56705416783 No Longer Active Fanny Kat Gee PRILOSEC 20 MG CAP CR 1 PO BID OMEPRAZOLE 60845988968 No Longer Active Fanny Kat Gee TAMIFLU 75 MG CAPS 1 PO BID for 5 days OSELTAMIVIR PHOSPHATE 63397825966 No Longer Active Fanny Kat Gee CODICLEAR DH 5-100 MG/5ML SYRP 5 cc Po Q4-6prn HYDROCODONE-GUAIFENESIN 28847824883 No Longer Active Fannylianna Gee HARRIS (DROSPIRENONE/ETHINYL ESTRADIOL) 3MG/20MCG as directed HARRIS (DROSPIRENONE/ETHINYL ESTRADIOL) 3MG/20MCG No Longer Active Jazlyn Figueroa TAM 28 3-0.03 MG TABS as directed DROSPIRENONE- ETHINYL ESTRADIOL 64335270154 No Longer Active Fanny Gee ORTHO TRI-CYCLEN LO 0.025 MG TABS as directed NORGESTIMATE-ETHINYL ESTRADIOL 12189239923 No Longer Active Fannylianna Gee AUGMENTIN 500-125 MG TAB 1 PO BID AMOXICILLIN-POT CLAVULANATE 18132729288 No Longer Active Fannylianna CLEMONS'S NASAL SPRAY (DEXAMETHASONE, GENTAMICIN, SALINE) 2 puffs each nostril BID DR. CLEMONS'S NASAL SPRAY (DEXAMETHASONE, GENTAMICIN, SALINE) No Longer Active Fanny Gee PRILOSEC 20 MG CAP CR 1 PO QD OMEPRAZOLE 75793733069 No Longer Active Fannylianna Gee WELLBUTRIN XL 150 MG TB24 1/2 daily BUPROPION HCL 81728439447 No Longer Active Fanny Kat Gee LEXAPRO 10 MG TABS 1 daily ESCITALOPRAM OXALATE 60552978167 No Longer Active Fanny Kat GUSTAFSONAFED DP 2.5-75 MG/5ML SUSP 10-20 cc po q 12 hrs. prn DEXCHLORPHEN GUSTAFSON-PSE GUSTAFSON 82536213502 No Longer Active Fnany Kat Gee RYNATAN 9-25 MG TABS 1-2 pills po Q 12 hrs prn CHLORPHEN GUSTAFSON-PHENYLEPH GUSTAFSON 90085990459 No Longer Active Fanny Kat Gee ANTIVERT 25 MG TABS 1 tab q 6h prn MECLIZINE HCL 80548138833 No Longer Active Fanny Kat Gee AFRIN NASAL SPRAY 0.05 % SOLN 1 puff each nostril BID OXYMETAZOLINE HCL 16653288416 No Longer Active Fanny Kat Gee WELLBUTRIN SR 150 MG TBCR 1 PO QAM BUPROPION HCL 42315446885 No Longer Active Fanny Kat Gee WELLBUTRIN XL 300 MG TB24 1 po daily BUPROPION HCL 98998621934 No Longer Active Fanny Kat Gee LASIX 20 MG TABS 1 po qod FUROSEMIDE 22936685412 No Longer Active Fanny Kat Gee POTASSIUM CHLORIDE 10 MEQ TBCR 1 tab po daily prn along with Lasix POTASSIUM CHLORIDE 37917465318 No Longer Active Fanny Kat Gee AMBIEN 10 MG TABS 1 PO QHS prn ZOLPIDEM TARTRATE 69153767734 No Longer Active Fanny Kat Gee Vital [...] mg/dL Encounters Code Encounter Date Provider Facility CPT-41355 Ofc Vst, Est Level IV 17:11:39 CDT Fannylianna Cuetoner Fanny Roberta Gee, DO, FACP CPT-67041 Ofc Vst, Est Level III 15:00:51 CONTENT ARCHITECT Fanny Stephens Marlen Cuetoner, DO, FACP CPT-85995 Ofc Vst, Est Level III 18:56:53 CDT Fannylianna Mccurdylianna Gee, DO, FACP CPT-63432 Ofc Vst, Est Level IV 15:50:14 CONTENT ARCHITECT Fanny Stephens [facility] CPT-07901 Ofc Vst, Est Level III 20:51:14 CONTENT ARCHITECT Fanny Kat Marlen Gee, DO, FACP CPT-74473 Ofc Vst, Est Level III 16:54:39 CONTENT ARCHITECT Fanny Stephens Marlen Gee, DO, FACP CPT-56277 Ofc Vst, Est Level IV 14:17:18 CONTENT ARCHITECT Fanny Stephens Marlen Gee, DO, FACP CPT-70693 Ofc Vst, Est Level III 18:54:59 CDT Fanny Stephens [facility] [place] [facility] CPT-48346 Ofc Vst, Est Level III 17:02:21 CDT Fanny Kat Marlen Gee, DO, FACP CPT-47341 Ofc Vst, Est Level III 20:38:41 CDT Fanny Kat Marlen Gee, DO, FACP CPT-96613 Ofc Vst, Est Level III 16:12:14 CDT Fanny Katjohn Gee, DO, FACP CPT-92132 Ofc Vst, Est Level IV 16:33:19 CONTENT ARCHITECT Fanny Katjohn Gee, DO, FACP CPT-56989 Ofc Vst, Est Level IV 14:45:33 CONTENT ARCHITECT Fannylianna Granados Gee, DO, FACP CPT-50449 Ofc Vst, Est Level IV 10:54:54 CDT Fanny Kat Granados Gee, DO, FACP CPT-63556 Ofc Vst, Est Level IV 10:49:11 CDT Fanny Kat Granados Gee, DO, FACP CPT-76259 Ofc Vst, Est Level IV 10:56:58 CDT Fanny Kat Granados Gee, DO, FACP CPT-40966 Ofc Vst, Est Level IV 11:41:19 CDT Fanny Kat Gee [facility] CPT-95798 Ofc Vst, Est Level III 13:40:53 CDT Fanny Kat Granados Gee, DO, FACP CPT-72566 Ofc Vst, Est Level IV 10:26:27 CDT Fanny aKt Granados Gee, DO, FACP CPT-20103 Ofc Vst, Est Level IV 11:15:45 CDT Fanny Kat Granados Gee, DO, FACP CPT-58917 Ofc Vst, Est Level IV 11:16:53 CONTENT ARCHITECT Fanny Granados Gee, DO, FACP CPT-33365 Ofc Vst, Est Level IV 11:28:33 CONTENT ARCHITECT Fanny Kat Granados Gee, DO, FACP CPT-35115 Ofc Vst, Est Level III 09:49:10 CONTENT ARCHITECT Fanny Granados Gee, DO, FACP CPT-22261 Ofc Vst, Est Level IV 15:49:05 CDT Fannylianna Granados Gee, DO, FACP CPT-28926 Ofc Vst, Est Level IV 15:51:31 CDT Fannylianna Gee [facility] CPT-19277 Ofc Vst, Est Level IV 16:47:19 CDT Fannylianna Granados Gee, DO, FACP CPT-80525 Ofc Vst, Est Level IV 13:33:43 CDT Fanny Granados Gee, DO, FACP CPT-89820 Ofc Vst, Est Level IV 14:07:16 CDT Fanny Kat Granados Gee, DO, FACP CPT-36317 Ofc Vst, Est Level V 11:27:11 CDT Fanny Kat Granados Marlen, DO, FACP CPT-58510 Ofc Vst, Est Level IV 13:43:55 CDT Fanny Granados Marlen, DO, FACP CPT-51737 Ofc Vst, Est Level V 15:24:57 CONTENT ARCHITECT Fannylianna Granados Marlen, DO, FACP CPT-78394 Ofc Vst, Est Level III 14:58:05 CDT Fannylianna Granados Marlen, DO, FACP CPT-86210 Ofc Vst, Est Level IV 15:58:13 CDT Fanny Granados Marlen, DO, FACP CPT-30211 Ofc Vst, Est Level IV 13:05:38 CDT Fannylianna Granados Marlen, DO, FACP CPT-73549 Ofc Vst, Est Level III 17:07:21 CDT Fannylianna Granados Gee, DO, FACP CPT-98798 Ofc Vst, Est Level III 14:58:29 CDT Fanny Granados Ege, DO, FACP CPT-84455 Ofc Vst, Est Level IV 16:06:24 CDT Fannylianna Granados Marlen, DO, FACP CPT-60963 Ofc Vst, Est Level III 09:33:36 CONTENT ARCHITECT Fanny Kat Marlen Escob[place] Roberta Marlen, DO, FACP CPT-80323 Ofc Vst, Est Level IV 10:26:53 CONTENT ARCHITECT Fanny Kat Marlen Mccurdyi S Gee, DO, FACP CPT-12552 Ofc Vst, Est Level IV 15:05:57 CONTENT ARCHITECT Fanny Kat Marlen Fanny S Marlen, DO, FACP CPT-78146 Ofc Vst, Est Level IV 10:19:01 CDT Fanny Kat Marlen Escobedo S Marlen, DO, FACP CPT-50832 Ofc Vst, Est Level IV 09:02:12 CDT Fanny Kat Marlen Escobedo S Marlen, DO, FACP CPT-74810 Ofc Vst, Est Level IV 10:02:49 CDT Fanny Katjohn Gee, DO, FACP CPT-45023 Ofc Vst, Est Level IV 10:50:47 CDT Fannylianna Gee [facility] [place] CPT-87279 Ofc Vst, Est Level IV 16:08:32 CDT Fanny Gee [facility] [place] CPT-01421 Ofc Vst, Est Level III 15:15:07 CONTENT ARCHITECT Fanny Gee [facility] [place] CPT-32718 Ofc Vst, Est Level IV 10:48:07 CONTENT ARCHITECT Fanny Gee [facility] [place] CPT-84577 Ofc Vst, Est Level IV 13:57:22 CONTENT ARCHITECT Fanny Gee [facility] [place] CPT-64105 Ofc Vst, Est Level III 15:02:05 CDT Fanny Gee [facility] [place] CPT-40549 Ofc Vst, Est Level II 11:50:49 CONTENT ARCHITECT Fanny Gee [facility] [place] CPT-92289 Ofc Vst, Est Level IV 12:35:56 CONTENT ARCHITECT Fanny Gee [facility] [place] CPT-33805 Ofc Vst, Est Level IV 18:55:46 CDT [facility] Kat Gee [facility] [place] CPT-06836 Ofc Vst, Est Level III 12:38:26 CONTENT ARCHITECT Fanny Kat Gee [facility] [place] CPT-05225 Ofc Vst, Est Level III 17:46:49 CONTENT ARCHITECT [facility] Kat Gee [facility] [place] CPT-90376 Ofc Vst, Est Level III 19:52:42 CDT Fanny Kat Gee [facility] [place] CPT-94587 Ofc Vst, Est Level IV 16:59:09 CDT [facility] Kat Gee [facility] [place] CPT-38829 Ofc Vst, Est Level III 12:31:11 CDT [facility] Kat Gee [facility] [place] CPT-11373 Ofc Vst, New Level III 11:16:59 CDT [facility] Kat Gee [facility] [place] Procedures Code Procedure Name Date Entry Date Standard Description CPT-85425 Preventive, Est, (40-64) 17:46:08 CDT CPT-44591 Preventive, Est, (40-64) 13:13:00 CDT CPT-50597 Preventive, Est, (18-39) 15:11:32 CDT
--- OUTSIDE RECORDS SUMMARY | 2017-04-13 07:33 | XMS REPORT | Clinical Summary ---
Author Author User, [facility] Address Unknown Phone Allergies, Adverse Reactions, [...] weight gain COLD INTOLERANCE 780.9 Resolved Fanny eGe Other general symptoms 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 Fanny [...] 1 MG TAB 1 PO daily ESTRADIOL 13848066248 Active Starr Aldridge VOLTAREN 75 MG EC TAB 1 PO BID prn DICLOFENAC SODIUM Active Fanny Gee POTASSIUM CHLORIDE 10 MEQ TBCR 1 PO daily prn POTASSIUM CHLORIDE 75724678964 Active Fanny Gee LASIX 20 MG TABS 1 PO daily prn FUROSEMIDE 07089271260 Active Fanny Gee PRAVACHOL 20 MG TAB 1 PO daily PRAVASTATIN SODIUM 16613261986 No Longer Active Fanny Gee CEFDINIR 300 MG CAPS 1 PO BID CEFDINIR 56053861641 No Longer Active Fanny CLEMONS'S NASAL SPRAY (DEXAMETHASONE, GENTAMICIN, SALINE) 2 puffs each nostril TID for [address] CLEMONS'S NASAL SPRAY ( DEXAMETHASONE, GENTAMICIN, SALINE) No Longer Active Fanny Kat Gee FLUTICASONE PROPIONATE 50 MCG/ACT SUSP 2 puffs each nostril daily FLUTICASONE PROPIONATE 31298808541 Active Fanny Kat Gee VALIUM 2 MG TAB 1 po QHS prn neck spasm DIAZEPAM 71019869300 No Longer Active Fanny Kat Gee XANAX 0.25 MG TABS 1 PO Q6hrs prn ALPRAZOLAM 20178058094 No Longer Active Fanny Kat Gee MULTIVITAMINS TABS 1 PO QD MULTIPLE VITAMIN 61038684634 No Longer Active Fanny Kat Gee PHENTERMINE HCL 37.5 MG CAPS 1 PO Daily PHENTERMINE HCL 26020358479 No Longer Active Fanny Kat Gee TESSALON 200 MG CAPS 1 PO TID prn cough BENZONATATE No Longer Active Fanny Kat Gee PYRIDIUM 200 MG TAB 1 PO TID prn urinary urgency PHENAZOPYRIDINE HCL 64019717736 No Longer Active Fanny Kat Gee AUGMENTIN 500-125 MG TAB 1 PO BID AMOXICILLIN-POT CLAVULANATE 15846041594 No Longer Active Fanny Kat Gee TOPAMAX 25 MG TABS 1 PO BID TOPIRAMATE 29757474724 Active Fanny Kat Gee MECLIZINE HCL 25 MG TAB 1 PO Q6hrs prn dizziness MECLIZINE HCL 76507037878 No Longer Active Fanny Kat Gee PERCOCET 10-325 MG TABS take 1 upto q 4 hours prn pain. OXYCODONE-ACETAMINOPHEN 35851376127 No Longer Active Fanny Kat Gee ULTRAM 50 MG TAB 1 po Q 6hrs prn pain TRAMADOL HCL 35951834736 No Longer Active Fanny Gee OMEPRAZOLE 20 MG CPDR 1 PO daily OMEPRAZOLE 03388405523 Active Starr CLEMONS'Roberta NASAL SPRAY (DEXAMETHASONE, GENTAMICIN, SALINE) 2 puffs each nostril TID for [address] HOPPER NASAL SPRAY ( DEXAMETHASONE, GENTAMICIN, SALINE) No Longer Active Fanny Gee BIOTIN 10 MG TABS 1 po daily BIOTIN 40268159895 No Longer Active Fanny Gee FLEXERIL 10 MG TAB 1 PO QHS prn neck pain CYCLOBENZAPRINE HCL 57578351777 No Longer Active Fanny Gee FLONASE 50 MCG/DOSE INHALANT 2 puffs each nostril daily FLONASE 50 MCG/DOSE INHALANT No Longer Active Fanny Gee PREMARIN 0.625 MG/GM CREA Apply as directed to affected areas ESTROGENS, CONJUGATED VAGINAL 41232454586 No Longer Active Fanny Gee TUMS 500 MG CHEW as needed at night CALCIUM CARBONATE ANTACID 49485471642 No Longer Active Fanny Gee LIPITOR 20 MG TAB 1 PO QD ATORVASTATIN CALCIUM 22327464945 No Longer Active Fanny Gee SYNTHROID 200 MCG TABS 1 PO daily with 25 mcg to total 225 mcg daily LEVOTHYROXINE SODIUM 76004253725 Active Fanny Gee SYNTHROID 0.025 MG TAB 1 PO Daily along with 200 mcg to total 225 mcg daily LEVOTHYROXINE SODIUM 17539466420 Active Fanny Gee PREDNISONE 20 MG TAB 3 pills daily at once for 2 days, 2 pills daily at once for 2 days, 1 once daily for 2 days PREDNISONE 22461371099 No Longer Active Fanny Gee LORTAB 7.5-500 MG/15ML ELIX 1 tsp q 4-6 hrs prn HYDROCODONE-ACETAMINOPHEN 32952877155 No Longer Active Fanny Kat Gee PHENTERMINE HCL 37.5 MG CAPS 1 PO Daily PHENTERMINE HCL 33097414989 No Longer Active Fanny Kat Gee TAMIFLU 75 MG CAPS 1 PO BID OSELTAMIVIR PHOSPHATE 58171195711 No Longer Active Melany Garcia LIPITOR 20 MG TAB 1 PO QD ATORVASTATIN CALCIUM 71187749883 No Longer Active Starr Tornillo ZOLOFT 50 MG TAB 1 PO daily with 100mg to equal 150mg daily SERTRALINE HCL 96855060668 Active Starr Aldridge ZOLOFT 100 MG TAB 1 PO daily with 50mg dosing to equal 150mg PO daily SERTRALINE HCL 24050036418 Active Starr Aldridge TOPAMAX 25 MG TABS 1 PO BID TOPIRAMATE 96032276330 No Longer Active Fanny Kat Gee PREDNISONE 20 MG TAB 2 pills at once for 2 days then 1 pill daily for 2 days PREDNISONE 69152561510 No Longer Active Fanny Kat Gee VITAMIN D 1000 UNIT TABS 2 PO Daily CHOLECALCIFEROL 10794728681 Active Starr Luis Carlos RITALIN 10 MG TABS 1 PO BID METHYLPHENIDATE HCL 47512657785 No Longer Active Fanny Kat Gee CYTOMEL 5 MCG TABS 1 PO daily LIOTHYRONINE SODIUM 02273121348 Active Fanny Kat Gee SOMA 350 MG TABS 1 PO qhs prn CARISOPRODOL 13890188751 Active Fanny Kat Gee BIAXIN XL PAC 500 MG TB24 2 pills at same time daily for 7 days CLARITHROMYCIN 31147584639 No Longer Active Fanny Kat Gee HYDROCODONE-HOMATROPINE SYRP 1 teaspoon PO Q4-6 hrs prn HYDROCODONE-HOMATROPINE SYRP 80898964106 No Longer Active Fanny Kat Gee AUGMENTIN 500-125 MG TAB 1 PO BID AMOXICILLIN-POT CLAVULANATE 14811084888 No Longer Active Fanny Kat Gee PHENTERMINE HCL 37.5 MG CAPS 1 PO Daily PHENTERMINE HCL 81264427354 No Longer Active Fanny Kat Gee PYRIDIUM 200 MG TABS 1 po TID PHENAZOPYRIDINE HCL 96095381634 No Longer Active Fanny Kat Gee PREMARIN 0.625 MG TABS 1 PO daily ESTROGENS CONJUGATED 42106780842 No Longer Active Fanny Kat Gee ZOLOFT 50 MG TABS 1 PO daily with 100mg tablet to egual 150mg SERTRALINE HCL 74539789175 No Longer Active Fanny Kat Gee ESTRADERM 0.1 MG/24HR PTTW 1 patch every week ESTRADIOL 41870909450 No Longer Active Fanny Kat Gee PHENTERMINE HCL 37.5 MG CAPS 1 PO Daily PHENTERMINE HCL 03285281926 No Longer Active Fanny Kat Gee LORTAB 5 5-500 MG TABS 1 to 2 PO Q6hrs prn ACETAMINOPHEN-HYDROCODONE 03904005153 No Longer Active Fanny Kat Gee EXCEDRIN MIGRAINE 250-250-65 MG TABS as directed [id number] 07655608091 No Longer Active Fanny Kat Gee REGLAN 10 MG TAB 1 PO Q 6 hours prn dizziness METOCLOPRAMIDE HCL 02007908701 No Longer Active Fanny Kat Gee PREDNISONE 20 MG TAB 3 pills daily at once for 2 days, 2 pills daily at once for 2 days, 1 once daily for 2 days PREDNISONE 48119108747 No Longer Active Fanny Kat Gee THA 180 MG TABS 1 PO QD for allergies FEXOFENADINE HCL 48695394967 No Longer Active Fanny Kat CLEMONS'Roberta NASAL SPRAY (DEXAMETHASONE, GENTAMICIN, SALINE) 2 puffs each nostril TID for [address] HOPPER NASAL SPRAY ( DEXAMETHASONE, GENTAMICIN, SALINE) No Longer Active Fanny Kat Gee AUGMENTIN 500-125 MG TAB 1 PO BID AMOXICILLIN-POT CLAVULANATE 65663466645 No Longer Active Fanny Kat Gee TRANSDERM-SCOP 1.5 MG PT72 1 patch behind ear every 3 days 12/12 SCOPOLAMINE BASE 74110147651 No Longer Active Fanny Kat Gee PREMARIN 0.3 MG TABS 1 PO daily ESTROGENS CONJUGATED 32573237521 No Longer Active Fanny Kat Gee KENALOG 0.1 % CREA Apply to ears sparingling daily as needed. TRIAMCINOLONE ACETONIDE 95492758514 No Longer Active Fanny Kat Gee LUNESTA 2 MG TABS 1 PO daily at HS as needed ESZOPICLONE 95705306367 No Longer Active Fanny Kat Gee LO/OVRAL 0.3-30 MG-MCG TABS as directed NORGESTREL-ETHINYL ESTRADIOL 09358267144 No Longer Active Fanny Kat Gee PREMARIN 0.625 MG TABS 1 PO daily ESTROGENS CONJUGATED 47966143014 No Longer Active Fanny Kat Gee VOLTAREN-XR 100 MG TB24 1 PO daily DICLOFENAC SODIUM 11501497023 No Longer Active Fanny Kat Gee FLEXERIL 10 MG TAB 1 PO QHS CYCLOBENZAPRINE HCL 08810854271 No Longer Active Fanny Kat Gee PYRIDIUM 200 MG TAB 1 PO TID for 3 days PHENAZOPYRIDINE HCL 34210365259 No Longer Active Fannylianna Gee LEVAQUIN 500 MG TAB 1 PO QD for 7 days LEVOFLOXACIN 94035158715 No Longer Active Fanny Kat Gee PRILOSEC 20 MG CAP CR 1 PO BID OMEPRAZOLE 90214055543 No Longer Active Fanny Kat Gee TAMIFLU 75 MG CAPS 1 PO BID for 5 days OSELTAMIVIR PHOSPHATE 28827737262 No Longer Active Fanny Kat Gee CODICLEAR DH 5-100 MG/5ML SYRP 5 cc Po Q4-6prn HYDROCODONE-GUAIFENESIN 91729601136 No Longer Active Fannylianna Gee HARRIS (DROSPIRENONE/ETHINYL ESTRADIOL) 3MG/20MCG as directed HARRIS (DROSPIRENONE/ETHINYL ESTRADIOL) 3MG/20MCG No Longer Active Jazlyn Figueroa TAM 28 3-0.03 MG TABS as directed DROSPIRENONE- ETHINYL ESTRADIOL 31683344106 No Longer Active Fannylianna Gee ORTHO TRI-CYCLEN LO 0.025 MG TABS as directed NORGESTIMATE-ETHINYL ESTRADIOL 44470709333 No Longer Active Fannylianna Gee AUGMENTIN 500-125 MG TAB 1 PO BID AMOXICILLIN-POT CLAVULANATE 80841341627 No Longer Active Fannylianna CLEMONS'S NASAL SPRAY (DEXAMETHASONE, GENTAMICIN, SALINE) 2 puffs each nostril BID DR. CLEMONS'S NASAL SPRAY (DEXAMETHASONE, GENTAMICIN, SALINE) No Longer Active Fanny Gee PRILOSEC 20 MG CAP CR 1 PO QD OMEPRAZOLE 55504907834 No Longer Active Fannylianna Gee WELLBUTRIN XL 150 MG TB24 1/2 daily BUPROPION HCL 68615688024 No Longer Active Fanny Kat Gee LEXAPRO 10 MG TABS 1 daily ESCITALOPRAM OXALATE 41588676659 No Longer Active Fanny Kat Gee TANAFED DP 2.5-75 MG/5ML SUSP 10-20 cc po q 12 hrs. prn DEXCHLORPHEN GUSTAFSON-PSE GUSTAFSON 49634456984 No Longer Active Fanny Kat Gee RYNATAN 9-25 MG TABS 1-2 pills po Q 12 hrs prn CHLORPHEN GUSTAFSON-PHENYLEPH GUSTAFSON 92073325018 No Longer Active Fanny Kat Gee ANTIVERT 25 MG TABS 1 tab q 6h prn MECLIZINE HCL 77457790954 No Longer Active Fanny aKt Gee AFRIN NASAL SPRAY 0.05 % SOLN 1 puff each nostril BID OXYMETAZOLINE HCL 27111379128 No Longer Active Fanny Kat Gee WELLBUTRIN SR 150 MG TBCR 1 PO QAM BUPROPION HCL 11728783506 No Longer Active Fanny Kat Gee WELLBUTRIN XL 300 MG TB24 1 po daily BUPROPION HCL 58815608249 No Longer Active Fanny Kat Gee LASIX 20 MG TABS 1 po qod FUROSEMIDE 07718625327 No Longer Active Fanny Kat Gee POTASSIUM CHLORIDE 10 MEQ TBCR 1 tab po daily prn along with Lasix POTASSIUM CHLORIDE 96123480921 No Longer Active Fanny Kat Gee AMBIEN 10 MG TABS 1 PO QHS prn ZOLPIDEM TARTRATE 71095239625 No Longer Active Fanny Kat Gee Vital [...] Estimated Glomerular Filtration Rate (calc) 81 mL/min/1.73m2 protein, total, serum 6.8 g/dL alkaline phosphatase, serum 107 U/L glucose, plasma fasting 108 mg/dL urea nitrogen, blood 13 mg/dL calcium, serum 9.2 mg/dL cholesterol/HDL ratio, serum, percent 4.4 sodium, serum 139 mmol/L chloride, serum 107 mmol/L cholesterol, serum 252 mg/dL triglyceride, serum, fasting 161 mg/dL carbon dioxide, venous blood 18 mmol/L bilirubin, serum, total 0.3 mg/dL creatinine, serum 0.87 mg/dL thyroxine, serum, free 1.1 ng/dL alanine aminotransferase (SGPT), serum 15 U/L HDL cholesterol, serum 57 mg/dL thyroid stimulating hormone, serum 3.21 u[iU]/mL aspartate aminotransferase (SGOT), serum 18 U/L LDL cholesterol, serum 163 mg/dL potassium, serum 4.7 mmol/L albumin, serum 4.1 g/dL Clinical Lists Update: CBC,CMP,FLP,TSH,Free T4 - Hematology hemoglobin, blood 14.0 g/dL hematocrit, blood 41.1 % platelet count 301 10*3/mm3 erythrocyte (RBC) count 4.51 10*6/mm3 leukocyte count, blood 8.7 10*3/mm3 mean corpuscular volume, RBC 91.3 fL red blood cell distribution width 13.7 % Clinical Lists Update: CMP,CHOL,TRIG,TSH,FREE T4 - Chemistry protein, total, serum 6.7 g/dL triglyceride, serum, fasting 161 mg/dL bilirubin, serum, total 0.4 mg/dL potassium, serum 4.6 mmol/L thyroid stimulating hormone, serum 0.80 u[iU]/mL alanine aminotransferase (SGPT), serum 17 U/L albumin, serum 4.0 g/dL cholesterol, serum 206 mg/dL sodium, serum 139 mmol/L alkaline phosphatase, serum 1.5 U/L carbon dioxide, venous blood 23 mmol/L Estimated Glomerular Filtration Rate (calc) 83 mL/min/1.73m2 urea nitrogen, blood 12 mg/dL thyroxine, serum, free 1.4 ng/dL chloride, serum 104 mmol/L glucose, plasma fasting 100 mg/dL creatinine, serum 0.85 mg/dL calcium, serum 9.4 mg/dL aspartate aminotransferase (SGOT), serum 18 U/L Clinical Lists Update: CMP,FLP,TSH,FREE T4 - Chemistry potassium, serum 4.2 mmol/L aspartate aminotransferase (SGOT), serum 36 U/L albumin, serum 4.3 g/dL Estimated Glomerular Filtration Rate (calc) 105 mL/min/1.73m2 alkaline phosphatase, serum 111 U/L urea nitrogen, blood 16 mg/dL glucose, plasma fasting 108 mg/dL calcium, serum 8.8 mg/dL chloride, serum 106 mmol/L sodium, serum 135 mmol/L carbon dioxide, venous blood 20 mmol/L creatinine, serum 0.70 mg/dL bilirubin, serum, total 0.4 mg/dL protein, total, serum 6.9 g/dL alanine aminotransferase (SGPT), serum 57 U/L Encounters Code Encounter Date Provider Facility CPT-55197 Ofc Vst, Est Level IV 17:11:39 CDT Fanny Gee DO, FACP CPT-94647 Ofc Vst, Est Level III 15:00:51 POTABLE WATER TREATMENT OPERATOR Fanny Gee DO, FACP CPT-07568 Ofc Vst, Est Level III 18:56:53 CDT Fanny Gee DO, FACP CPT-29096 Ofc Vst, Est Level IV 15:50:14 POTABLE WATER TREATMENT OPERATOR Fanny Gee [facility] CPT-00404 Ofc Vst, Est Level III 20:51:14 POTABLE WATER TREATMENT OPERATOR Fanny Gee DO, FACP CPT-29375 Ofc Vst, Est Level III 16:54:39 POTABLE WATER TREATMENT OPERATOR Fanny Kat Granados Gee, DO, FACP CPT-66620 Ofc Vst, Est Level IV 14:17:18 POTABLE WATER TREATMENT OPERATOR Fanny Kat Granados Gee, DO, FACP CPT-19685 Ofc Vst, Est Level III 18:54:59 CDT Fanny Kat Gee [facility] CPT-43610 Ofc Vst, Est Level III 17:02:21 CDT Fanny Kat Granados Gee, DO, FACP CPT-42779 Ofc Vst, Est Level III 20:38:41 CDT Fanny Kat Granados Gee, DO, FACP CPT-26811 Ofc Vst, Est Level III 16:12:14 CDT Fanny Kat Granados Marlen, DO, FACP CPT-92884 Ofc Vst, Est Level IV 16:33:19 POTABLE WATER TREATMENT OPERATOR Fanny Granados Gee, DO, FACP CPT-45051 Ofc Vst, Est Level IV 14:45:33 POTABLE WATER TREATMENT OPERATOR Fanny Kat Escobedo S Gee, DO, FACP CPT-33596 Ofc Vst, Est Level IV 10:54:54 CDT Fanny Kat Granados Marlen, DO, FACP CPT-02127 Ofc Vst, Est Level IV 10:49:11 CDT Fanny Kat Granados Marlen, DO, FACP CPT-97059 Ofc Vst, Est Level IV 10:56:58 CDT Fanny Kat Escobedo S Gee, DO, FACP CPT-89034 Ofc Vst, Est Level IV 11:41:19 CDT Fannylianna Gee [facility] CPT-34390 Ofc Vst, Est Level III 13:40:53 CDT Fanny Kat Granados Gee, DO, FACP CPT-09567 Ofc Vst, Est Level IV 10:26:27 CDT Fanny Kat Granados Gee, DO, FACP CPT-04355 Ofc Vst, Est Level IV 11:15:45 CDT Fanny Kat Granados Gee, DO, FACP CPT-30862 Ofc Vst, Est Level IV 11:16:53 POTABLE WATER TREATMENT OPERATOR Fannylianna Granados Gee, DO, FACP CPT-83223 Ofc Vst, Est Level IV 11:28:33 POTABLE WATER TREATMENT OPERATOR Fanny Granados Gee, DO, FACP CPT-17218 Ofc Vst, Est Level III 09:49:10 POTABLE WATER TREATMENT OPERATOR Fanny Granados Gee, DO, FACP CPT-01102 Ofc Vst, Est Level IV 15:49:05 CDT Fanny Kat Granados Gee, DO, FACP CPT-15944 Ofc Vst, Est Level IV 15:51:31 CDT Fannylianna [facility] CPT-41012 Ofc Vst, Est Level IV 16:47:19 CDT Fannylianna Granados Gee, DO, FACP CPT-07139 Ofc Vst, Est Level IV 13:33:43 CDT Fanny Kat Granados Marlen, DO, FACP CPT-49377 Ofc Vst, Est Level IV 14:07:16 CDT Fanny Kat Granados Gee, DO, FACP CPT-89779 Ofc Vst, Est Level V 11:27:11 CDT Fanny Kat Granados Gee, DO, FACP CPT-61234 Ofc Vst, Est Level IV 13:43:55 CDT Fanny Kat Granados Marlen, DO, FACP CPT-70447 Ofc Vst, Est Level V 15:24:57 POTABLE WATER TREATMENT OPERATOR Fannylianna Granados Gee, DO, FACP CPT-87675 Ofc Vst, Est Level III 14:58:05 CDT Fanny Kat Granados Gee, DO, FACP CPT-58911 Ofc Vst, Est Level IV 15:58:13 CDT Fanny Kat Granados Gee, DO, FACP CPT-64181 Ofc Vst, Est Level IV 13:05:38 CDT Fanny Kat Granados Gee, DO, FACP CPT-64286 Ofc Vst, Est Level III 17:07:21 CDT Fanny Kat Granados Marlen, DO, FACP CPT-29582 Ofc Vst, Est Level III 14:58:29 CDT Fanny Kat Granados Marlen, DO, FACP CPT-67823 Ofc Vst, Est Level IV 16:06:24 CDT Fanny Kat Granados Marlen, DO, FACP CPT-77822 Ofc Vst, Est Level III 09:33:36 POTABLE WATER TREATMENT OPERATOR Fanny Granados Gee, DO, FACP CPT-74534 Ofc Vst, Est Level IV 10:26:53 POTABLE WATER TREATMENT OPERATOR Fanny Granados Marlen, DO, FACP CPT-91752 Ofc Vst, Est Level IV 15:05:57 POTABLE WATER TREATMENT OPERATOR Fanny Kat Granados Gee, DO, FACP CPT-04088 Ofc Vst, Est Level IV 10:19:01 CDT Fanny Kat Esocbedo S Gee, DO, FACP CPT-02280 Ofc Vst, Est Level IV 09:02:12 CDT Fannylianna Granados Marlen, DO, FACP CPT-20984 Ofc Vst, Est Level IV 10:02:49 CDT Fanny Gee, DO, FACP CPT-75975 Ofc Vst, Est Level IV 10:50:47 CDT Fanny Gee [facility] [place] CPT-44272 Ofc Vst, Est Level IV 16:08:32 CDT Fanny Gee [facility] [place] CPT-23464 Ofc Vst, Est Level III 15:15:07 POTABLE WATER TREATMENT OPERATOR Fanny Gee [facility] [place] CPT-14165 Ofc Vst, Est Level IV 10:48:07 POTABLE WATER TREATMENT OPERATOR Fanny Gee [facility] [place] CPT-77292 Ofc Vst, Est Level IV 13:57:22 POTABLE WATER TREATMENT OPERATOR Fanny Gee [facility] [place] CPT-69208 Ofc Vst, Est Level III 15:02:05 CDT Fanny Gee [facility] [place] CPT-67256 Ofc Vst, Est Level II 11:50:49 POTABLE WATER TREATMENT OPERATOR Fanny Gee [facility] [place] CPT-00799 Ofc Vst, Est Level IV 12:35:56 POTABLE WATER TREATMENT OPERATOR Fanny Gee [facility] [place] CPT-09991 Ofc Vst, Est Level IV 18:55:46 CDT Fanny Gee [facility] [place] CPT-59313 Ofc Vst, Est Level III 12:38:26 POTABLE WATER TREATMENT OPERATOR Fanny Gee [facility] [place] CPT-52985 Ofc Vst, Est Level III 17:46:49 POTABLE WATER TREATMENT OPERATOR Fanny Gee [facility] [place] CPT-91652 Ofc Vst, Est Level III 19:52:42 CDT Fanny Gee [facility] [place] CPT-63612 Ofc Vst, Est Level IV 16:59:09 CDT Fanny Gee [facility] [place] CPT-73956 Ofc Vst, Est Level III 12:31:11 CDT Fanny Gee [facility] [place] CPT-05719 Ofc Vst, New Level III 11:16:59 CDT Fanny Gee [facility] Phys[facility] [place] Procedures Code Procedure Name Date Entry Date Standard Description CPT-62957 Preventive, Est, (40-64) 17:46:08 CDT CPT-97185 Preventive, Est, (40-64) 13:13:00 CDT CPT-30019 Preventive, Est, (18-39) 15:11:32 CDT
--- OUTSIDE RECORDS SUMMARY | 2017-04-13 07:34 | XMS REPORT | Clinical Summary ---
Author Author User, [place] [facility] Address Unknown Phone Allergies, Adverse [...] 1 MG TAB 1 PO daily ESTRADIOL 13150860511 Active Fanny Gee VOLTAREN 75 MG EC TAB 1 PO BID prn DICLOFENAC SODIUM Active Fanny Gee POTASSIUM CHLORIDE 10 MEQ TBCR 1 PO daily prn POTASSIUM CHLORIDE 77740202239 Active Fanny Gee LASIX 20 MG TABS 1 PO daily prn FUROSEMIDE 99300181533 Active Fanny Gee PRAVACHOL 20 MG TAB 1 PO daily PRAVASTATIN SODIUM 27309582674 No Longer Active Fanny Gee CEFDINIR 300 MG CAPS 1 PO BID CEFDINIR 37460362698 No Longer Active Fanny CLEMONS'S NASAL SPRAY (DEXAMETHASONE, GENTAMICIN, SALINE) 2 puffs each nostril TID for [address] CLEMONS'S NASAL SPRAY ( DEXAMETHASONE, GENTAMICIN, SALINE) No Longer Active Fanny Kat Gee FLUTICASONE PROPIONATE 50 MCG/ACT SUSP 2 puffs each nostril daily FLUTICASONE PROPIONATE 47110775593 Active Fanny Kat Gee VALIUM 2 MG TAB 1 po QHS prn neck spasm DIAZEPAM 34144008762 No Longer Active Fanny Kat Gee XANAX 0.25 MG TABS 1 PO Q6hrs prn ALPRAZOLAM 34997400170 No Longer Active Fanny Kat Gee MULTIVITAMINS TABS 1 PO QD MULTIPLE VITAMIN 82031295610 No Longer Active Fannylianna Gee PHENTERMINE HCL 37.5 MG CAPS 1 PO Daily PHENTERMINE HCL 52066291944 No Longer Active Fanny Kat Gee TESSALON 200 MG CAPS 1 PO TID prn cough BENZONATATE No Longer Active Fanny Kat Gee PYRIDIUM 200 MG TAB 1 PO TID prn urinary urgency PHENAZOPYRIDINE HCL 21099298062 No Longer Active Fannylianna Gee AUGMENTIN 500-125 MG TAB 1 PO BID AMOXICILLIN-POT CLAVULANATE 44570249456 No Longer Active Fannylianna Gee TOPAMAX 25 MG TABS 1 PO BID TOPIRAMATE 42572219435 Active Fanny Kat Gee MECLIZINE HCL 25 MG TAB 1 PO Q6hrs prn dizziness MECLIZINE HCL 80345042244 No Longer Active Fanny Kat Gee PERCOCET 10-325 MG TABS take 1 upto q 4 hours prn pain. OXYCODONE-ACETAMINOPHEN 89900514658 No Longer Active Fanny Kat Gee ULTRAM 50 MG TAB 1 po Q 6hrs prn pain TRAMADOL HCL 72869465375 No Longer Active Fanny Gee OMEPRAZOLE 20 MG CPDR 1 PO daily OMEPRAZOLE 07234226876 Active Starr HOPPER NASAL SPRAY (DEXAMETHASONE, GENTAMICIN, SALINE) 2 puffs each nostril TID for [address] HOPPER NASAL SPRAY ( DEXAMETHASONE, GENTAMICIN, SALINE) No Longer Active Fanny Gee BIOTIN 10 MG TABS 1 po daily BIOTIN 15989012838 No Longer Active Fanny Gee FLEXERIL 10 MG TAB 1 PO QHS prn neck pain CYCLOBENZAPRINE HCL 55684156691 No Longer Active Fanny Gee FLONASE 50 MCG/DOSE INHALANT 2 puffs each nostril daily FLONASE 50 MCG/DOSE INHALANT No Longer Active Fanny Gee PREMARIN 0.625 MG/GM CREA Apply as directed to affected areas ESTROGENS, CONJUGATED VAGINAL 69601667378 No Longer Active Fanny Gee TUMS 500 MG CHEW as needed at night CALCIUM CARBONATE ANTACID 44799692254 No Longer Active Fanny Gee LIPITOR 20 MG TAB 1 PO QD ATORVASTATIN CALCIUM 53670905472 No Longer Active Fanny Gee SYNTHROID 200 MCG TABS 1 PO daily with 25 mcg to total 225 mcg daily LEVOTHYROXINE SODIUM 38641940707 Active Fanny Gee SYNTHROID 0.025 MG TAB 1 PO Daily along with 200 mcg to total 225 mcg daily LEVOTHYROXINE SODIUM 11680145200 Active Fanny Gee PREDNISONE 20 MG TAB 3 pills daily at once for 2 days, 2 pills daily at once for 2 days, 1 once daily for 2 days PREDNISONE 84543877289 No Longer Active Fanny Gee LORTAB 7.5-500 MG/15ML ELIX 1 tsp q 4-6 hrs prn HYDROCODONE-ACETAMINOPHEN 79861414929 No Longer Active Fanny Kat Gee PHENTERMINE HCL 37.5 MG CAPS 1 PO Daily PHENTERMINE HCL 14023815414 No Longer Active Fanny Kat Gee TAMIFLU 75 MG CAPS 1 PO BID OSELTAMIVIR PHOSPHATE 12324926846 No Longer Active Melany Garcia LIPITOR 20 MG TAB 1 PO QD ATORVASTATIN CALCIUM 65608425420 No Longer Active Starr Aldridge ZOLOFT 50 MG TAB 1 PO daily with 100mg to equal 150mg daily SERTRALINE HCL 70442996782 Active Starr Aldridge ZOLOFT 100 MG TAB 1 PO daily with 50mg dosing to equal 150mg PO daily SERTRALINE HCL 93683112634 Active Starr Aldridge TOPAMAX 25 MG TABS 1 PO BID TOPIRAMATE 18328089643 No Longer Active Fanny Kat Gee PREDNISONE 20 MG TAB 2 pills at once for 2 days then 1 pill daily for 2 days PREDNISONE 95366981716 No Longer Active Fanny Kat Gee VITAMIN D 1000 UNIT TABS 2 PO Daily CHOLECALCIFEROL 04086527406 Active Starrleopoldo Aldridge RITALIN 10 MG TABS 1 PO BID METHYLPHENIDATE HCL 48946036821 No Longer Active Fanny Kat Gee CYTOMEL 5 MCG TABS 1 PO daily LIOTHYRONINE SODIUM 49053796056 Active Fanny Kat Gee SOMA 350 MG TABS 1 PO qhs prn CARISOPRODOL 63845945749 Active Fanny Kat Gee BIAXIN XL PAC 500 MG TB24 2 pills at same time daily for 7 days CLARITHROMYCIN 08581977313 No Longer Active Fanny Kat Gee HYDROCODONE-HOMATROPINE SYRP 1 teaspoon PO Q4-6 hrs prn HYDROCODONE-HOMATROPINE SYRP 82137695523 No Longer Active Fanny Kat Gee AUGMENTIN 500-125 MG TAB 1 PO BID AMOXICILLIN-POT CLAVULANATE 93009545215 No Longer Active Fanny Kat Gee PHENTERMINE HCL 37.5 MG CAPS 1 PO Daily PHENTERMINE HCL 75329015625 No Longer Active Fanny Kat Gee PYRIDIUM 200 MG TABS 1 po TID PHENAZOPYRIDINE HCL 65386889858 No Longer Active Fanny Kat Gee PREMARIN 0.625 MG TABS 1 PO daily ESTROGENS CONJUGATED 98170829769 No Longer Active Fanny Kta Gee ZOLOFT 50 MG TABS 1 PO daily with 100mg tablet to egual 150mg SERTRALINE HCL 19367951140 No Longer Active Fanny Kat Gee ESTRADERM 0.1 MG/24HR PTTW 1 patch every week ESTRADIOL 46946895105 No Longer Active Fanny Kat Gee PHENTERMINE HCL 37.5 MG CAPS 1 PO Daily PHENTERMINE HCL 30113971565 No Longer Active Fanny Kat Gee LORTAB 5 5-500 MG TABS 1 to 2 PO Q6hrs prn ACETAMINOPHEN-HYDROCODONE 95590394413 No Longer Active Fanny Kat Gee EXCEDRIN MIGRAINE 250-250-65 MG TABS as directed [id number] 29241074569 No Longer Active Fanny Kat Gee REGLAN 10 MG TAB 1 PO Q 6 hours prn dizziness METOCLOPRAMIDE HCL 19053573890 No Longer Active Fanny Kat Gee PREDNISONE 20 MG TAB 3 pills daily at once for 2 days, 2 pills daily at once for 2 days, 1 once daily for 2 days PREDNISONE 25997262383 No Longer Active Fanny Kat Gee THA 180 MG TABS 1 PO QD for allergies FEXOFENADINE HCL 22496904304 No Longer Active Fanny Kat CLEMONS'Roberta NASAL SPRAY (DEXAMETHASONE, GENTAMICIN, SALINE) 2 puffs each nostril TID for [address] HOPPER NASAL SPRAY ( DEXAMETHASONE, GENTAMICIN, SALINE) No Longer Active Fanny Kat Gee AUGMENTIN 500-125 MG TAB 1 PO BID AMOXICILLIN-POT CLAVULANATE 14839158710 No Longer Active Fanny Kat Gee TRANSDERM-SCOP 1.5 MG PT72 1 patch behind ear every 3 days 12/12 SCOPOLAMINE BASE 40788604331 No Longer Active Fanny Kat Gee PREMARIN 0.3 MG TABS 1 PO daily ESTROGENS CONJUGATED 19857493722 No Longer Active Fanny Kat Gee KENALOG 0.1 % CREA Apply to ears sparingling daily as needed. TRIAMCINOLONE ACETONIDE 44027177265 No Longer Active Fannylianna Gee LUNESTA 2 MG TABS 1 PO daily at HS as needed ESZOPICLONE 63593030376 No Longer Active Fanny Kat Gee LO/OVRAL 0.3-30 MG-MCG TABS as directed NORGESTREL-ETHINYL ESTRADIOL 16871609216 No Longer Active Fanny Kat Gee PREMARIN 0.625 MG TABS 1 PO daily ESTROGENS CONJUGATED 17799574271 No Longer Active Fanny Kat Gee VOLTAREN-XR 100 MG TB24 1 PO daily DICLOFENAC SODIUM 49671281264 No Longer Active Fanny Kat Gee FLEXERIL 10 MG TAB 1 PO QHS CYCLOBENZAPRINE HCL 44111741661 No Longer Active Fanny Kat Gee PYRIDIUM 200 MG TAB 1 PO TID for 3 days PHENAZOPYRIDINE HCL 97923326509 No Longer Active Fannylianna Gee LEVAQUIN 500 MG TAB 1 PO QD for 7 days LEVOFLOXACIN 10095455996 No Longer Active Fanyn Kat Gee PRILOSEC 20 MG CAP CR 1 PO BID OMEPRAZOLE 07696063486 No Longer Active Fanny Kat Gee TAMIFLU 75 MG CAPS 1 PO BID for 5 days OSELTAMIVIR PHOSPHATE 89279211295 No Longer Active Fanny Kat Gee CODICLEAR DH 5-100 MG/5ML SYRP 5 cc Po Q4-6prn HYDROCODONE-GUAIFENESIN 92596876753 No Longer Active Fannylianna Gee HARRIS (DROSPIRENONE/ETHINYL ESTRADIOL) 3MG/20MCG as directed HARRIS (DROSPIRENONE/ETHINYL ESTRADIOL) 3MG/20MCG No Longer Active Jazlyn Figueroa TAM 28 3-0.03 MG TABS as directed DROSPIRENONE- ETHINYL ESTRADIOL 11206568987 No Longer Active Fannylianna Gee ORTHO TRI-CYCLEN LO 0.025 MG TABS as directed NORGESTIMATE-ETHINYL ESTRADIOL 45211866010 No Longer Active Fannylianna Gee AUGMENTIN 500-125 MG TAB 1 PO BID AMOXICILLIN-POT CLAVULANATE 19866725415 No Longer Active Fannylianna CLEMONS'S NASAL SPRAY (DEXAMETHASONE, GENTAMICIN, SALINE) 2 puffs each nostril BID DR. CLEMONS'S NASAL SPRAY (DEXAMETHASONE, GENTAMICIN, SALINE) No Longer Active Fanny Gee PRILOSEC 20 MG CAP CR 1 PO QD OMEPRAZOLE 44781339672 No Longer Active Fannylianna Gee WELLBUTRIN XL 150 MG TB24 1/2 daily BUPROPION HCL 05842717174 No Longer Active Fanny Kat Gee LEXAPRO 10 MG TABS 1 daily ESCITALOPRAM OXALATE 16286885834 No Longer Active Fanny Kat GUSTAFSONAFED DP 2.5-75 MG/5ML SUSP 10-20 cc po q 12 hrs. prn DEXCHLORPHEN GUSTAFSON-PSE GUSTAFSON 57631580355 No Longer Active Fanny Kat Gee RYNATAN 9-25 MG TABS 1-2 pills po Q 12 hrs prn CHLORPHEN GUSTAFSON-PHENYLEPH GUSTAFSON 40830356176 No Longer Active Fanny Kat Gee ANTIVERT 25 MG TABS 1 tab q 6h prn MECLIZINE HCL 47712876353 No Longer Active Fanny Kat Gee AFRIN NASAL SPRAY 0.05 % SOLN 1 puff each nostril BID OXYMETAZOLINE HCL 13243020594 No Longer Active Fanny Kat Gee WELLBUTRIN SR 150 MG TBCR 1 PO QAM BUPROPION HCL 57966020973 No Longer Active Fanny Kat Gee WELLBUTRIN XL 300 MG TB24 1 po daily BUPROPION HCL 27904815203 No Longer Active Fanny Kat Gee LASIX 20 MG TABS 1 po qod FUROSEMIDE 17588502974 No Longer Active Fanny Kat eGe POTASSIUM CHLORIDE 10 MEQ TBCR 1 tab po daily prn along with Lasix POTASSIUM CHLORIDE 28548369510 No Longer Active Fanny Kat Gee AMBIEN 10 MG TABS 1 PO QHS prn ZOLPIDEM TARTRATE 22328630703 No Longer Active Fanny Kat Gee Vital [...] g/dL Encounters Code Encounter Date Provider Facility CPT-29709 Ofc Vst, Est Level IV 17:11:39 CDT Fannylianna Granados Gee, DO, FACP CPT-80028 Ofc Vst, Est Level III 15:00:51 DIRECTOR MICROBIOLOGY Fanny Granados Gee, DO, FACP CPT-92331 Ofc Vst, Est Level III 18:56:53 CDT Fanny Kat Granados Gee, DO, FACP CPT-17184 Ofc Vst, Est Level IV 15:50:14 DIRECTOR MICROBIOLOGY Fanny Gee [facility] CPT-47150 Ofc Vst, Est Level III 20:51:14 DIRECTOR MICROBIOLOGY Fanny Granados Marlen, DO, FACP CPT-86252 Ofc Vst, Est Level III 16:54:39 DIRECTOR MICROBIOLOGY Fanny Granados Malren, DO, FACP CPT-18446 Ofc Vst, Est Level IV 14:17:18 DIRECTOR MICROBIOLOGY Fanny Granados Marlen, DO, FACP CPT-17848 Ofc Vst, Est Level III 18:54:59 CDT Fanny Gee [facility] CPT-21279 Ofc Vst, Est Level III 17:02:21 CDT Fannylianna Cuetoner Fanny Granados Marlen, DO, FACP CPT-22520 Ofc Vst, Est Level III 20:38:41 CDT Fanny Kat Granados Gee, DO, FACP CPT-72244 Ofc Vst, Est Level III 16:12:14 CDT Fanny Kat Gee Fanny S Gee, DO, FACP CPT-12693 Ofc Vst, Est Level IV 16:33:19 DIRECTOR MICROBIOLOGY Fanny Stephens Marlen Fannylianna Gee, DO, FACP CPT-52123 Ofc Vst, Est Level IV 14:45:33 DIRECTOR MICROBIOLOGY Fannylianna Granados Gee, DO, FACP CPT-52981 Ofc Vst, Est Level IV 10:54:54 CDT Fanny Kat Granados Gee, DO, FACP CPT-70877 Ofc Vst, Est Level IV 10:49:11 CDT Fanny Kat Granados Marlen, DO, FACP CPT-77014 Ofc Vst, Est Level IV 10:56:58 CDT Fanny Kat Granados Gee, DO, FACP CPT-94735 Ofc Vst, Est Level IV 11:41:19 CDT Fannylianna Gee [facility] CPT-03148 Ofc Vst, Est Level III 13:40:53 CDT Fannylianna Granados Marlen, DO, FACP CPT-77846 Ofc Vst, Est Level IV 10:26:27 CDT Fanny Kat Granados Marlen, DO, FACP CPT-28716 Ofc Vst, Est Level IV 11:15:45 CDT Fannylianna Granados Marlen, DO, FACP CPT-41356 Ofc Vst, Est Level IV 11:16:53 DIRECTOR MICROBIOLOGY Fanny Granados Marlen, DO, FACP CPT-49984 Ofc Vst, Est Level IV 11:28:33 DIRECTOR MICROBIOLOGY Fanny Granados Marlen, DO, FACP CPT-79200 Ofc Vst, Est Level III 09:49:10 DIRECTOR MICROBIOLOGY Fanny Granados Marlen, DO, FACP CPT-81657 Ofc Vst, Est Level IV 15:49:05 CDT Fannylianna Granados Marlen, DO, FACP CPT-79253 Ofc Vst, Est Level IV 15:51:31 CDT Fannylianna Gee [facility] CPT-22760 Ofc Vst, Est Level IV 16:47:19 CDT Fanny Kat Granados Gee, DO, FACP CPT-42465 Ofc Vst, Est Level IV 13:33:43 CDT Fanny Kat Granados Gee, DO, FACP CPT-83301 Ofc Vst, Est Level IV 14:07:16 CDT Fanny Kat Granados Gee, DO, FACP CPT-73692 Ofc Vst, Est Level V 11:27:11 CDT Fanny Kat Granados Gee, DO, FACP CPT-11049 Ofc Vst, Est Level IV 13:43:55 CDT Fanny Kat Granados Marlen, DO, FACP CPT-77001 Ofc Vst, Est Level V 15:24:57 DIRECTOR MICROBIOLOGY Fanny Kat Granados Marlen, DO, FACP CPT-72964 Ofc Vst, Est Level III 14:58:05 CDT Fanny Kat Granados Marlen, DO, FACP CPT-20888 Ofc Vst, Est Level IV 15:58:13 CDT Fanny Kat Granados Marlen, DO, FACP CPT-19026 Ofc Vst, Est Level IV 13:05:38 CDT Fanny Kat Granados Marlen, DO, FACP CPT-83958 Ofc Vst, Est Level III 17:07:21 CDT Fanny Kat Granados Gee, DO, FACP CPT-31598 Ofc Vst, Est Level III 14:58:29 CDT Fanny Kat Granados Marlen, DO, FACP CPT-92714 Ofc Vst, Est Level IV 16:06:24 CDT Fanny Kat Granados Marlen, DO, FACP CPT-75883 Ofc Vst, Est Level III 09:33:36 DIRECTOR MICROBIOLOGY Fannylianna Torrese Marlen Escobedo Roberta Marlen, DO, FACP CPT-07506 Ofc Vst, Est Level IV 10:26:53 DIRECTOR MICROBIOLOGY Fanny Stephens Marlen Gee, DO, FACP CPT-37681 Ofc Vst, Est Level IV 15:05:57 DIRECTOR MICROBIOLOGY Fanny Stephens Gee Fannylianna Gee, DO, FACP CPT-29513 Ofc Vst, Est Level IV 10:19:01 CDT Fannylianna Stephens Marlen Fanny Roberta Marlen, DO, FACP CPT-30227 Ofc Vst, Est Level IV 09:02:12 CDT Fannylianna Stephens Marlen Gee, DO, FACP CPT-94720 Ofc Vst, Est Level IV 10:02:49 CDT Fannylianna Stephens Marlen Gee, DO, FACP CPT-93014 Ofc Vst, Est Level IV 10:50:47 CDT Fannylianna Gee [facility] [place] CPT-45343 Ofc Vst, Est Level IV 16:08:32 CDT Fanny Gee [facility] [place] CPT-74525 Ofc Vst, Est Level III 15:15:07 DIRECTOR MICROBIOLOGY Fanny Gee [facility] [place] CPT-66846 Ofc Vst, Est Level IV 10:48:07 DIRECTOR MICROBIOLOGY Fanny Gee [facility] [place] CPT-17960 Ofc Vst, Est Level IV 13:57:22 DIRECTOR MICROBIOLOGY Fanny Gee [facility] [place] CPT-65401 Ofc Vst, Est Level III 15:02:05 CDT Fanny Gee [facility] [place] CPT-25036 Ofc Vst, Est Level II 11:50:49 DIRECTOR MICROBIOLOGY Fanny Gee [facility] [place] CPT-00544 Ofc Vst, Est Level IV 12:35:56 DIRECTOR MICROBIOLOGY Fanny Gee [facility] [place] CPT-40551 Ofc Vst, Est Level IV 18:55:46 CDT [facility] Kat Gee [facility] [place] CPT-90820 Ofc Vst, Est Level III 12:38:26 DIRECTOR MICROBIOLOGY Fanny Kat Gee [facility] [place] CPT-59551 Ofc Vst, Est Level III 17:46:49 DIRECTOR MICROBIOLOGY [facility] Kat Gee [facility] [place] CPT-68852 Ofc Vst, Est Level III 19:52:[address] [facility] [place] CPT-02644 Ofc Vst, Est Level IV 16:59:09 CDT [facility] Kat Gee [facility] [place] CPT-02036 Ofc Vst, Est Level III 12:31:11 CDT [facility] Kat Gee [facility] [place] CPT-36341 Ofc Vst, New Level III 11:16:59 CDT [facility] Kat Gee [facility] [place] Procedures Code Procedure Name Date Entry Date Standard Description CPT-83104 Preventive, Est, (40-64) 17:46:08 CDT CPT-87994 Preventive, Est, (40-64) 13:13:00 CDT CPT-46990 Preventive, Est, (18-39) 15:11:32 CDT
--- OUTSIDE RECORDS SUMMARY | 2017-04-13 07:35 | XMS REPORT | Clinical Summary ---
Author Author User, [facility] Address Unknown Phone Allergies, Adverse [...] 1 MG TAB 1 PO daily ESTRADIOL 48484112598 Active Fanny Gee VOLTAREN 75 MG EC TAB 1 PO BID prn DICLOFENAC SODIUM Active Fanny Gee POTASSIUM CHLORIDE 10 MEQ TBCR 1 PO daily prn POTASSIUM CHLORIDE 86478729287 Active Fanny Gee LASIX 20 MG TABS 1 PO daily prn FUROSEMIDE 38406209665 Active Fanny Gee PRAVACHOL 20 MG TAB 1 PO daily PRAVASTATIN SODIUM 33119854528 No Longer Active Fanny Gee CEFDINIR 300 MG CAPS 1 PO BID CEFDINIR 19323614601 No Longer Active Fanny CLEMONS'S NASAL SPRAY (DEXAMETHASONE, GENTAMICIN, SALINE) 2 puffs each nostril TID for [address] CLEMONS'S NASAL SPRAY ( DEXAMETHASONE, GENTAMICIN, SALINE) No Longer Active Fanny Kat Gee FLUTICASONE PROPIONATE 50 MCG/ACT SUSP 2 puffs each nostril daily FLUTICASONE PROPIONATE 75468007529 Active Fanny Kat Gee VALIUM 2 MG TAB 1 po QHS prn neck spasm DIAZEPAM 48267849700 No Longer Active Fanny Kat Gee XANAX 0.25 MG TABS 1 PO Q6hrs prn ALPRAZOLAM 70759567313 No Longer Active Fanny Kat Gee MULTIVITAMINS TABS 1 PO QD MULTIPLE VITAMIN 82864335554 No Longer Active Fannylianna Gee PHENTERMINE HCL 37.5 MG CAPS 1 PO Daily PHENTERMINE HCL 05636916232 No Longer Active Fanny Kat Gee TESSALON 200 MG CAPS 1 PO TID prn cough BENZONATATE No Longer Active Fanny Kat Gee PYRIDIUM 200 MG TAB 1 PO TID prn urinary urgency PHENAZOPYRIDINE HCL 78020193469 No Longer Active Fannylianna Gee AUGMENTIN 500-125 MG TAB 1 PO BID AMOXICILLIN-POT CLAVULANATE 04434484582 No Longer Active Fannylianna Gee TOPAMAX 25 MG TABS 1 PO BID TOPIRAMATE 57494617349 Active Fanny Kat Gee MECLIZINE HCL 25 MG TAB 1 PO Q6hrs prn dizziness MECLIZINE HCL 16514591349 No Longer Active Fanny Kat Gee PERCOCET 10-325 MG TABS take 1 upto q 4 hours prn pain. OXYCODONE-ACETAMINOPHEN 87234036921 No Longer Active Fanny Kat Gee ULTRAM 50 MG TAB 1 po Q 6hrs prn pain TRAMADOL HCL 17573243613 No Longer Active Fanny Gee OMEPRAZOLE 20 MG CPDR 1 PO daily OMEPRAZOLE 80854721254 Active Fanny CLEMONS'Roberta NASAL SPRAY (DEXAMETHASONE, GENTAMICIN, SALINE) 2 puffs each nostril TID for [address] HOPPER NASAL SPRAY ( DEXAMETHASONE, GENTAMICIN, SALINE) No Longer Active Fanny Gee BIOTIN 10 MG TABS 1 po daily BIOTIN 58432658104 No Longer Active Fanny Gee FLEXERIL 10 MG TAB 1 PO QHS prn neck pain CYCLOBENZAPRINE HCL 46405642605 No Longer Active Fanny Gee FLONASE 50 MCG/DOSE INHALANT 2 puffs each nostril daily FLONASE 50 MCG/DOSE INHALANT No Longer Active Fanny Gee PREMARIN 0.625 MG/GM CREA Apply as directed to affected areas ESTROGENS, CONJUGATED VAGINAL 94972744400 No Longer Active Fanny Gee TUMS 500 MG CHEW as needed at night CALCIUM CARBONATE ANTACID 15854681238 No Longer Active Fanny Gee LIPITOR 20 MG TAB 1 PO QD ATORVASTATIN CALCIUM 70020727691 No Longer Active Fanny Gee SYNTHROID 200 MCG TABS 1 PO daily with 25 mcg to total 225 mcg daily LEVOTHYROXINE SODIUM 44760354072 Active Fanny Gee SYNTHROID 0.025 MG TAB 1 PO Daily along with 200 mcg to total 225 mcg daily LEVOTHYROXINE SODIUM 87279064207 Active Fanny Gee PREDNISONE 20 MG TAB 3 pills daily at once for 2 days, 2 pills daily at once for 2 days, 1 once daily for 2 days PREDNISONE 43735539841 No Longer Active Fanny Gee LORTAB 7.5-500 MG/15ML ELIX 1 tsp q 4-6 hrs prn HYDROCODONE-ACETAMINOPHEN 56474637321 No Longer Active Fannylianna Gee PHENTERMINE HCL 37.5 MG CAPS 1 PO Daily PHENTERMINE HCL 87656328884 No Longer Active Fannylianna Gee TAMIFLU 75 MG CAPS 1 PO BID OSELTAMIVIR PHOSPHATE 40022823318 No Longer Active Melany Garcia LIPITOR 20 MG TAB 1 PO QD ATORVASTATIN CALCIUM 35517341052 No Longer Active Starr Aldridge ZOLOFT 50 MG TAB 1 PO daily with 100mg to equal 150mg daily SERTRALINE HCL 59504644468 Active Fanny Kat Gee ZOLOFT 100 MG TAB 1 PO daily with 50mg dosing to equal 150mg PO daily SERTRALINE HCL 26542029781 Active Fanny Kat Gee TOPAMAX 25 MG TABS 1 PO BID TOPIRAMATE 72428083981 No Longer Active Fannylianna Gee PREDNISONE 20 MG TAB 2 pills at once for 2 days then 1 pill daily for 2 days PREDNISONE 54707697210 No Longer Active Fannylianna Gee VITAMIN D 1000 UNIT TABS 2 PO Daily CHOLECALCIFEROL 99422496670 Active Starr Aldridge RITALIN 10 MG TABS 1 PO BID METHYLPHENIDATE HCL 89708905650 No Longer Active Fanny Kat Gee CYTOMEL 5 MCG TABS 1 PO daily LIOTHYRONINE SODIUM 97044468016 Active Fanny Kat Gee SOMA 350 MG TABS 1 PO qhs prn CARISOPRODOL 51570288436 Active Fannylianna Gee BIAXIN XL PAC 500 MG TB24 2 pills at same time daily for 7 days CLARITHROMYCIN 19195066073 No Longer Active Fannylianna Gee HYDROCODONE-HOMATROPINE SYRP 1 teaspoon PO Q4-6 hrs prn HYDROCODONE-HOMATROPINE SYRP 28506979834 No Longer Active Fanny Kat Gee AUGMENTIN 500-125 MG TAB 1 PO BID AMOXICILLIN-POT CLAVULANATE 04330818993 No Longer Active Fanny Kat Gee PHENTERMINE HCL 37.5 MG CAPS 1 PO Daily PHENTERMINE HCL 62874530769 No Longer Active Fanny Kat Gee PYRIDIUM 200 MG TABS 1 po TID PHENAZOPYRIDINE HCL 52311150828 No Longer Active Fanny Kat Gee PREMARIN 0.625 MG TABS 1 PO daily ESTROGENS CONJUGATED 05837976412 No Longer Active Fanny Kat Gee ZOLOFT 50 MG TABS 1 PO daily with 100mg tablet to egual 150mg SERTRALINE HCL 92809762022 No Longer Active Fanny Kat Gee ESTRADERM 0.1 MG/24HR PTTW 1 patch every week ESTRADIOL 49168986884 No Longer Active Fanny Kat Gee PHENTERMINE HCL 37.5 MG CAPS 1 PO Daily PHENTERMINE HCL 87400756444 No Longer Active Fanny Kat Gee LORTAB 5 5-500 MG TABS 1 to 2 PO Q6hrs prn ACETAMINOPHEN-HYDROCODONE 98896579238 No Longer Active Fanny Kat Gee EXCEDRIN MIGRAINE 250-250-65 MG TABS as directed [id number] 15623114037 No Longer Active Fanny Kat Gee REGLAN 10 MG TAB 1 PO Q 6 hours prn dizziness METOCLOPRAMIDE HCL 05020437578 No Longer Active Fanny Kat Gee PREDNISONE 20 MG TAB 3 pills daily at once for 2 days, 2 pills daily at once for 2 days, 1 once daily for 2 days PREDNISONE 00686132301 No Longer Active Fanny Kat Gee THA 180 MG TABS 1 PO QD for allergies FEXOFENADINE HCL 69919979920 No Longer Active Fanny Kat CLEMONS'Roberta NASAL SPRAY (DEXAMETHASONE, GENTAMICIN, SALINE) 2 puffs each nostril TID for [address] HOPPER NASAL SPRAY ( DEXAMETHASONE, GENTAMICIN, SALINE) No Longer Active Fanny Kat Gee AUGMENTIN 500-125 MG TAB 1 PO BID AMOXICILLIN-POT CLAVULANATE 61602085885 No Longer Active Fanny Kat Gee TRANSDERM-SCOP 1.5 MG PT72 1 patch behind ear every 3 days 12/12 SCOPOLAMINE BASE 18360348884 No Longer Active Fnany Kat Gee PREMARIN 0.3 MG TABS 1 PO daily ESTROGENS CONJUGATED 23778483224 No Longer Active Fanny Kat Gee KENALOG 0.1 % CREA Apply to ears sparingling daily as needed. TRIAMCINOLONE ACETONIDE 86090449036 No Longer Active Fannylianna Gee LUNESTA 2 MG TABS 1 PO daily at HS as needed ESZOPICLONE 70883973119 No Longer Active Fanny Kat Gee LO/OVRAL 0.3-30 MG-MCG TABS as directed NORGESTREL-ETHINYL ESTRADIOL 10064832189 No Longer Active Fanny Kat Gee PREMARIN 0.625 MG TABS 1 PO daily ESTROGENS CONJUGATED 02833782878 No Longer Active Fanny Kat Gee VOLTAREN-XR 100 MG TB24 1 PO daily DICLOFENAC SODIUM 95420242897 No Longer Active Fanny Kat Gee FLEXERIL 10 MG TAB 1 PO QHS CYCLOBENZAPRINE HCL 41789277467 No Longer Active Fanny Kat Gee PYRIDIUM 200 MG TAB 1 PO TID for 3 days PHENAZOPYRIDINE HCL 76779480809 No Longer Active Fannylianna Gee LEVAQUIN 500 MG TAB 1 PO QD for 7 days LEVOFLOXACIN 08058041985 No Longer Active Fanny Kat Gee PRILOSEC 20 MG CAP CR 1 PO BID OMEPRAZOLE 59490928138 No Longer Active Fanny Kat Gee TAMIFLU 75 MG CAPS 1 PO BID for 5 days OSELTAMIVIR PHOSPHATE 89398216522 No Longer Active Fanny Kat Gee CODICLEAR DH 5-100 MG/5ML SYRP 5 cc Po Q4-6prn HYDROCODONE-GUAIFENESIN 63360243780 No Longer Active Fanynlianna Gee HARRIS (DROSPIRENONE/ETHINYL ESTRADIOL) 3MG/20MCG as directed HARRIS (DROSPIRENONE/ETHINYL ESTRADIOL) 3MG/20MCG No Longer Active Jazlyn Figueroa TAM 28 3-0.03 MG TABS as directed DROSPIRENONE- ETHINYL ESTRADIOL 10517709392 No Longer Active Fanny Gee ORTHO TRI-CYCLEN LO 0.025 MG TABS as directed NORGESTIMATE-ETHINYL ESTRADIOL 93298612442 No Longer Active Fannylianna Gee AUGMENTIN 500-125 MG TAB 1 PO BID AMOXICILLIN-POT CLAVULANATE 83427454201 No Longer Active Fannylianna CLEMONS'S NASAL SPRAY (DEXAMETHASONE, GENTAMICIN, SALINE) 2 puffs each nostril BID DR. CLEMONS'S NASAL SPRAY (DEXAMETHASONE, GENTAMICIN, SALINE) No Longer Active Fanny Gee PRILOSEC 20 MG CAP CR 1 PO QD OMEPRAZOLE 61310246618 No Longer Active Fannylianna Gee WELLBUTRIN XL 150 MG TB24 1/2 daily BUPROPION HCL 19327640507 No Longer Active Fanny Kat Gee LEXAPRO 10 MG TABS 1 daily ESCITALOPRAM OXALATE 91140617207 No Longer Active Fanny Kat GUSTAFSONAFED DP 2.5-75 MG/5ML SUSP 10-20 cc po q 12 hrs. prn DEXCHLORPHEN GUSTAFSON-PSE GUSTAFSON 24675263765 No Longer Active Fanny Kat Gee RYNATAN 9-25 MG TABS 1-2 pills po Q 12 hrs prn CHLORPHEN GUSTAFSON-PHENYLEPH GUSTAFSON 53157910139 No Longer Active Fanny Kat Gee ANTIVERT 25 MG TABS 1 tab q 6h prn MECLIZINE HCL 88732701055 No Longer Active Fanny Kat Gee AFRIN NASAL SPRAY 0.05 % SOLN 1 puff each nostril BID OXYMETAZOLINE HCL 15686161725 No Longer Active Fanny Kat Gee WELLBUTRIN SR 150 MG TBCR 1 PO QAM BUPROPION HCL 47507363716 No Longer Active Fanny Kat Gee WELLBUTRIN XL 300 MG TB24 1 po daily BUPROPION HCL 93780752359 No Longer Active Fanny Kat Gee LASIX 20 MG TABS 1 po qod FUROSEMIDE 07426920319 No Longer Active Fanny Kat Gee POTASSIUM CHLORIDE 10 MEQ TBCR 1 tab po daily prn along with Lasix POTASSIUM CHLORIDE 59286176746 No Longer Active Fanny Kat Gee AMBIEN 10 MG TABS 1 PO QHS prn ZOLPIDEM TARTRATE 79425199365 No Longer Active Fanny Kat Gee Vital [...] mg/dL Encounters Code Encounter Date Provider Facility CPT-24360 Ofc Vst, Est Level IV 17:11:39 CDT Fannylianna Cuetoner Fanny Roberta Gee, DO, FACP CPT-35112 Ofc Vst, Est Level III 15:00:51 INFORMATION TECHNOLOGY TEACHER Fanny Stephens Marlen Cuetoner, DO, FACP CPT-68351 Ofc Vst, Est Level III 18:56:53 CDT Fannylianan Mccurdylianna Gee, DO, FACP CPT-66581 Ofc Vst, Est Level IV 15:50:14 INFORMATION TECHNOLOGY TEACHER Fanny Stephens [facility] CPT-38594 Ofc Vst, Est Level III 20:51:14 INFORMATION TECHNOLOGY TEACHER Fanny Kat Marlen Gee, DO, FACP CPT-76387 Ofc Vst, Est Level III 16:54:39 INFORMATION TECHNOLOGY TEACHER Fanny Stephens Marlen Gee, DO, FACP CPT-71186 Ofc Vst, Est Level IV 14:17:18 INFORMATION TECHNOLOGY TEACHER Fanny Stephens Marlen Gee, DO, FACP CPT-22111 Ofc Vst, Est Level III 18:54:59 CDT Fanny Stephens [facility] [place] [facility] CPT-48517 Ofc Vst, Est Level III 17:02:21 CDT Fanny Kat Marlen Gee, DO, FACP CPT-22590 Ofc Vst, Est Level III 20:38:41 CDT Fanny Kat Marlen Gee, DO, FACP CPT-97433 Ofc Vst, Est Level III 16:12:14 CDT Fanny Katjohn Gee, DO, FACP CPT-19308 Ofc Vst, Est Level IV 16:33:19 INFORMATION TECHNOLOGY TEACHER Fanny Katjohn Gee, DO, FACP CPT-81255 Ofc Vst, Est Level IV 14:45:33 INFORMATION TECHNOLOGY TEACHER Fannylianna Granados Gee, DO, FACP CPT-86726 Ofc Vst, Est Level IV 10:54:54 CDT Fanny Kat Granados Gee, DO, FACP CPT-01780 Ofc Vst, Est Level IV 10:49:11 CDT Fanny Kat Granados Gee, DO, FACP CPT-33397 Ofc Vst, Est Level IV 10:56:58 CDT Fanny Kat Granados Gee, DO, FACP CPT-60395 Ofc Vst, Est Level IV 11:41:19 CDT Fanny Kat Gee [facility] CPT-67109 Ofc Vst, Est Level III 13:40:53 CDT Fanny Kat Granados Gee, DO, FACP CPT-99059 Ofc Vst, Est Level IV 10:26:27 CDT Fanny Kat Granados Gee, DO, FACP CPT-64871 Ofc Vst, Est Level IV 11:15:45 CDT Fanny Kat Granados Gee, DO, FACP CPT-20758 Ofc Vst, Est Level IV 11:16:53 INFORMATION TECHNOLOGY TEACHER Fanny Granados Gee, DO, FACP CPT-45999 Ofc Vst, Est Level IV 11:28:33 INFORMATION TECHNOLOGY TEACHER Fanny Kat Granados Gee, DO, FACP CPT-54495 Ofc Vst, Est Level III 09:49:10 INFORMATION TECHNOLOGY TEACHER Fanny Granados Gee, DO, FACP CPT-79970 Ofc Vst, Est Level IV 15:49:05 CDT Fannylianna Granados Gee, DO, FACP CPT-32237 Ofc Vst, Est Level IV 15:51:31 CDT Fannylianna Gee [facility] CPT-18035 Ofc Vst, Est Level IV 16:47:19 CDT Fannylianna Granados Gee, DO, FACP CPT-65812 Ofc Vst, Est Level IV 13:33:43 CDT Fanny Granados Gee, DO, FACP CPT-53574 Ofc Vst, Est Level IV 14:07:16 CDT Fanny Kat Granados Gee, DO, FACP CPT-74351 Ofc Vst, Est Level V 11:27:11 CDT Fanny Kat Granados Marlen, DO, FACP CPT-87237 Ofc Vst, Est Level IV 13:43:55 CDT Fanny Granados Marlen, DO, FACP CPT-64688 Ofc Vst, Est Level V 15:24:57 INFORMATION TECHNOLOGY TEACHER Fannylianna Granados Marlen, DO, FACP CPT-31193 Ofc Vst, Est Level III 14:58:05 CDT Fannylianna Granados Marlen, DO, FACP CPT-28639 Ofc Vst, Est Level IV 15:58:13 CDT Fanny Granados Marlen, DO, FACP CPT-28326 Ofc Vst, Est Level IV 13:05:38 CDT Fannylianna Granados Marlen, DO, FACP CPT-23361 Ofc Vst, Est Level III 17:07:21 CDT Fannylianna Granados Gee, DO, FACP CPT-47375 Ofc Vst, Est Level III 14:58:29 CDT Fanny Granados Gee, DO, FACP CPT-60206 Ofc Vst, Est Level IV 16:06:24 CDT Fannylianna Granados Marlen, DO, FACP CPT-76940 Ofc Vst, Est Level III 09:33:36 INFORMATION TECHNOLOGY TEACHER Fanny Kat Marlen Escobedo Roberta Marlen, DO, FACP CPT-27588 Ofc Vst, Est Level IV 10:26:53 INFORMATION TECHNOLOGY TEACHER Fanny Kat Marlen Mccurdyi S Gee, DO, FACP CPT-45722 Ofc Vst, Est Level IV 15:05:57 INFORMATION TECHNOLOGY TEACHER Fanny Kat Marlen Fanny S Marlen, DO, FACP CPT-76609 Ofc Vst, Est Level IV 10:19:01 CDT Fanny Kat Marlen Escobedo S Marlen, DO, FACP CPT-28552 Ofc Vst, Est Level IV 09:02:12 CDT Fanny Kat Marlen Escobedo S Marlen, DO, FACP CPT-05701 Ofc Vst, Est Level IV 10:02:49 CDT Fanny Katjohn Gee, DO, FACP CPT-43470 Ofc Vst, Est Level IV 10:50:47 CDT Fannylianna Gee [facility] [place] CPT-03486 Ofc Vst, Est Level IV 16:08:[address] [facility] [place] CPT-05835 Ofc Vst, Est Level III 15:15:07 INFORMATION TECHNOLOGY TEACHER Fanny Gee [facility] [place] CPT-76659 Ofc Vst, Est Level IV 10:48:07 INFORMATION TECHNOLOGY TEACHER Fanny Gee [facility] [place] CPT-74561 Ofc Vst, Est Level IV 13:57:22 INFORMATION TECHNOLOGY TEACHER Fanny Gee [facility] [place] CPT-09279 Ofc Vst, Est Level III 15:02:05 CDT Fanny Gee [facility] [place] CPT-86418 Ofc Vst, Est Level II 11:50:49 INFORMATION TECHNOLOGY TEACHER Fanny Gee [facility] [place] CPT-58818 Ofc Vst, Est Level IV 12:35:56 INFORMATION TECHNOLOGY TEACHER Fanny Gee [facility] [place] CPT-73633 Ofc Vst, Est Level IV 18:55:46 CDT [facility] Kat Gee [facility] [place] CPT-26503 Ofc Vst, Est Level III 12:38:26 INFORMATION TECHNOLOGY TEACHER Fanny Kat Gee [facility] [place] CPT-18289 Ofc Vst, Est Level III 17:46:49 INFORMATION TECHNOLOGY TEACHER [facility] Kat Gee [facility] [place] CPT-93667 Ofc Vst, Est Level III 19:52:[address] [facility] [place] CPT-07198 Ofc Vst, Est Level IV 16:59:09 CDT [facility] Kat Gee [facility] [place] CPT-13155 Ofc Vst, Est Level III 12:31:11 CDT [facility] Kat Gee [facility] [place] CPT-23420 Ofc Vst, New Level III 11:16:59 CDT [facility] Kat Gee [facility] [place] Procedures Code Procedure Name Date Entry Date Standard Description CPT-85216 Preventive, Est, (40-64) 17:46:08 CDT CPT-56651 Preventive, Est, (40-64) 13:13:00 CDT CPT-19341 Preventive, Est, (18-39) 15:11:32 CDT
--- OUTSIDE RECORDS SUMMARY | 2017-04-13 07:36 | XMS REPORT | Continuity of Care Document ---
Author Author [facility] Organization [facility] Address Unknown Phone Unavailable Allergies Active Description Code Type Severity Reaction Onset Reported/Identified Relationship to Patient Clinical Status Yes codeine [id number] Drug Allergy Mild DIFFICUTLY WITH 03/20/2007 Medications Problems Date Dx Coded Attending Type Code Diagnosis Diagnosed By 05/12/2015 KAVON BROWNE DOI Ot V76.12 05/12/2015 KAVON BROWNE DOI Ot V76.12 05/27/2015 PAVAN JENNINGS VAUGHN Ot Z12.31 01/30/2016 KAVON BROWNE DOI Ot V76.12 OTH SCREEN MAMMO-MALIGN NEOPLASM OF PAWAN 01/30/2016 KAVON BROWNE DOI Ot V76.12 OTH SCREEN MAMMO-MALIGN NEOPLASM OF PAWAN 01/30/2016 KAVON BROWNE DOI Ot Z12.31 ENCNTR SCREEN MAMMOGRAM FOR MALIGNANT NE 04/20/2016 SOFÍA SALINAS, DIOGO N Ot N64.4 MASTODYNIA 04/20/2016 SOFÍA SALINAS, DIOGO N Ot N64.89 OTHER SPECIFIED DISORDERS OF BREAST 09/13/2016 PAVAN JENNINGS VAUGHN Ot R00.2 PALPITATIONS 10/03/2016 KAVON BROWNE DOI Ot R00.2 PALPITATIONS 12/11/2016 KAVON BROWNE DOI Ot R00.2 PALPITATIONS 03/15/2017 PAVAN JENNINGS VAUGHN Ot Z12.31 ENCNTR SCREEN MAMMOGRAM FOR MALIGNANT NE 03/29/2017 KAVON BROWNE DOI Ot R92.8 OTH ABN AND INCONCLUSIVE FINDINGS ON DX 03/29/2017 VAUGHN BROWNE DO Ot N63.12 UNSPECIFIED LUMP IN THE RIGHT BREAST, UP 03/30/2017 KAVON BROWNE DOI Ot R92.8 OTH ABN AND INCONCLUSIVE FINDINGS ON DX Procedures Results Encounters ACCT No. Visit Date/Time Discharge Status Pt. Type Provider Facility Loc./Unit Complaint [id number] 03/23/2017 12:24:00 2016 23:59:59 CLS Outpatient BROWNE DO, VAUGHN [facility] RAD ABNORMAL MAMMO R92.8 [id number] 03/20/2017 13:57:00 2016 23:59:59 CLS Outpatient BROWNE DO, VAUGHN [facility] RAD R92.8 [id number] 03/07/2017 12:56:00 2016 23:59:59 CLS Outpatient BROWNE DO, VAUGHN [facility] RAD SCREENING Z12.31 [id number] 12/12/2016 14:00:00 2016 23:59:59 CLS Preadmit BROWNE DO, VAUGHN [facility] CARD PALPITATIONS [id number] 09/12/2016 12:58:00 2016 00:01:00 DIS Outpatient BROWNE DO, VAUGHN [facility] CARD PALPITATIONS [id number] 04/11/2016 13:20:00 2015 23:59:59 CLS Outpatient SOFÍA SALINAS, DIOGO [facility] RAD MASTALGIA,BREAST ASYMMETRY [id number] 05/12/2015 13:22:00 2014 23:59:59 CLS Outpatient BROWNE DO, VAUGHN [facility] RAD ROUTINE MAMMOGRAM SCREENING [id number] 02/26/2014 15:15:00 2013 23:59:59 CLS Outpatient BROWNE DO, VAUGHN [facility] RAD SCREENING [id number] 11/07/2012 08:53:00 2012 23:59:59 CLS Outpatient BROWNE DO, VAUGHN [facility] RAD SCREENING
[2017-04-13] MEDS ORDERED: LIDOCAINE 1% INJ 20 ML (XYLOCAINE) VIAL INJ ONE (07:45)
--- NOTE | 2017-04-13 07:57 | Progress Note-Pre Operative ---
Pre-Operative Progress Note H&P Reviewed The H&P was reviewed, patient examined and no changes noted. Date Seen by Provider: Apr 13, 2017 Time Seen by Provider: 07:56 Date H&P Reviewed: Apr 13, 2017 Time H&P Reviewed: 07:56 Pre-Operative Diagnosis: abnormalitly right breast by mammogram EDWARD DORSEY DO Apr 13, 2017 07:57
[2017-04-13] MEDS ORDERED: CATHETER FLUSH 10 ML SYR IV PRN (08:15)
[2017-04-13] MEDS ORDERED: CLINDAMYCIN 600 MG/NS 50 ML IVPB IV ONE ×2 (08:15)
[2017-04-13 08:17] VITALS: BP 120/78
[2017-04-13] MEDS ORDERED: LACTATED RINGERS 1,000 ML IV PRN (09:11)
[2017-04-13] MEDS ORDERED: LIDOCAINE PF 2% 5 ML (XYLOCAINE) VIAL ONE (09:14)
[2017-04-13] MEDS ORDERED: MIDAZOLAM 2 MG/2 ML (VERSED) VIAL ONE (09:14)
[2017-04-13] MEDS ORDERED: fentaNYL INJECTION 100 MCG/2 ML AMP ONE (09:14)
[2017-04-13] MEDS ORDERED: proPOfol 200 MG/20 ML (DIPRIVAN) VIAL IV ONE ×2 (09:14→10:18)
[2017-04-13] MEDS ORDERED: MIDAZOLAM 2 MG/2 ML (VERSED) VIAL IV ONE (09:15)
[2017-04-13] MEDS ORDERED: FAMOTIDINE 20MG/2ML IV (PEPCID) IV ONE (09:15)
[2017-04-13] MEDS ORDERED: DEXAMETHASONE 10 MG/ML (DECADRON) 1 ML VIAL ONE (09:17)
[2017-04-13] MEDS ORDERED: ONDANSETRON 4 MG/2 ML (SDV) Z0FRAN ONE (09:17)
--- NOTE | 2017-04-13 09:20 | Diagnostic Imaging Report ---
PROCEDURE: Mammogram and tomography guided hookwire needle localization of breast mass. INDICATION: Left breast architectural distortion and the radial scar. CONSENT: Informed consent was obtained from the patient. The risks, benefits, potential complications and alternatives were reviewed and all questions answered to the patient's satisfaction. FINDINGS: Initial mammograms demonstrate biopsy clip in the medial aspect of the right breast. PROCEDURE: After sterile preparation and draping, 1% lidocaine was utilized for local anesthesia. A hookwire introducer needle was advanced under mammogram and tomography guidance to the level of the lesion. Good needle position was documented with cc and lateral mammogram images. The hookwire was deployed and the needle withdrawn simultaneously. The patient tolerated the procedure well with no immediate complications. IMPRESSION: Successful mammogram hookwire needle localization of medial right breast biopsy clip. Dictated by: Dictated on workstation # [id number]
[2017-04-13] MEDS ORDERED: BUPIVACAINE 0.5% 30 ML (SENSORCAINE) VIAL ONE (09:50)
[2017-04-13] MEDS ORDERED: LACTATED RINGERS 1,000 ML IV ONE (10:35)
--- NOTE | 2017-04-13 11:45 | Progress Note-Post Operative ---
Post-Operative Progess Note Surgeon (s)/Room Clerk (s) Surgeon EDWARD DORSEY DO Room Clerk: na Pre-Operative Diagnosis abnormalitly right breast by mammogram Post-Operative Diagnosis same Procedure & Operative Findings Date of Procedure 04/13/17 Procedure Performed/Findings right breast wire localized excisional breast biopsy Anesthesia Type general Estimated Blood Loss Estimated blood loss (mL): minimal Specimens/Packing Specimens Removed right breast abnormality EDWARD DORSEY DO Apr 13, 2017 11:45
[2017-04-13] MEDS ORDERED: HYDR-3812 PO (11:46)
[2017-04-13] MEDS ORDERED: DOCU-143 PO (11:46)
--- NOTE | 2017-04-13 11:47 | Discharge Inst-Simple/Standard ---
Discharge Inst-Standard Discharge Medications New, Converted or Re-Newed RX: RX on Chart Patient Instructions/Follow Up Plan of Care/Instructions/FU: 2 weeks Denita Activity as Tolerated: No Discharge Diet: Regular Diet Other Inst to Patient Follow up Appt: Make appointment for 2 week. Instructions: No lifting greater than 10 pounds. No strenuous activity. May shower in 24 hours, no tub bath or soaking. Use incentive spirometer at home as directed. No Smoking Skin/Wound Care: May remove bandages and replace daily. Wear supportive bra. You have special glue over incision it will fall off on its own. Symptoms to Report: Appetite Changes, Extremity Discoloration, Numbness/Tingling, Swelling Increased , Bleeding Excessive, Eyesight Changes, Pain Increased, Urine Color Change, Constipation(Persistent), Fever over 101 degree F, Pain/Pressure in chest, Urinating Difficulty, Cough Up/Vomit Blood, Heart Beat Irreg/Pounding, Pain/ Pressure in jaw, Vaginal Bleeding Increase, Cramps in feet or legs, Lightheadedness, Pain/Pressure in shoulder, Diarrhea(Persistent), Memory Changes Suddenly, Questions/Concerns, Weight gain consecutive days, Dizziness/ Fainting, Nausea/Vomiting, Shortness of Breath, Weight gain over 2 pounds If questions or concerns contact your physician Or seek help at emergency department. EDWARD DORSEY DO Apr 13, 2017 11:47
[2017-04-13] MEDS ORDERED: MEPERIDINE (DEMEROL) INJ 50 MG/ML IVP PRN (12:00)
[2017-04-13] MEDS ORDERED: fentaNYL INJECTION 100 MCG/2 ML AMP IVP PRN (12:00)
[2017-04-13] MEDS ORDERED: morphine INJ 10 MG/ML 1ML (SYR OR VIAL) IVP PRN (12:00)
[2017-04-13] MEDS ORDERED: ONDANSETRON 4 MG/2 ML (SDV) Z0FRAN IVP PRN (12:00)
[2017-04-13] MEDS ORDERED: HYDROcodone/APAP 5 MG/325 MG (LORTAB) TAB PO PRN (12:00)
[2017-04-13 12:43] VITALS: BP 137/96
[2017-04-13 13:12] VITALS: BP 131/87
[2017-04-13 13:35] VITALS: BP 122/75
--- NOTE | 2017-04-13 23:04 | OPERATIVE REPORT ---
DATE OF SERVICE: 04/13/2017 PREOPERATIVE DIAGNOSIS: Right breast mammogram abnormality. POSTOPERATIVE DIAGNOSIS: Right breast mammogram abnormality. PROCEDURE: A wire localized right breast excisional biopsy. SURGEON: Edward Barger DO. ANESTHESIA: General. ESTIMATED BLOOD LOSS: Minimal. COMPLICATIONS: None. INDICATIONS: The patient is a 47-year-old female who had an abnormality by mammogram. She had sterotactic biopsy performed. It was requested that further excisional biopsy be performed. The patient understands risks and benefits of procedure and wished to proceed with procedure. Consent was signed and on the chart. DESCRIPTION OF PROCEDURE: The patient was taken to the operating suite, she was prepped and draped in sterile fashion. Surgical pause was performed. A previously placed wire by radiology has been in place. Some local anesthetic was infiltrated into the area. The wire was brought through the incision and using cautery, circumferential dissection was taken down around the wire encompassing the entire wire and to obtain a clip that was placed previously at the sterotactic biopsy. Once circumferentially around this area, the area was removed and labeled with 2 long sutures laterally, two short sutures anteriorly and one long, one short suture medially. Specimen was sent to radiology demonstrating the wire and clip all removed. Copious amounts of irrigation was used to irrigate the wound. Hemostasis had been achieved. The subcutaneous tissues were then reapproximated using 3-0 Vicryl. Skin was then closed using 4-0 Vicryl in a running subcuticular fashion. The area was then washed and dried. Dermabond was placed over the incision. The patient then had a slightly compressive dressing placed. The patient tolerated the procedure well without any complications. She was taken to recovery room in stable condition. Job ID: [id number] DocumentID: [id number] Dictated Date: 04/13/2017 14:54:36 Synthetic Filament Spinner Date: 04/13/2017 22:23:15 Dictated By: EDWARD BARGER DO
--- NOTE | 2017-04-18 08:38 | Diagnostic Imaging Report ---
EXAMINATION: Specimen radiograph of breast lumpectomy biopsy post hookwire needle localization placement. INDICATION: Check adequacy of right breast hookwire guided excisional biopsy. FINDINGS: The biopsy clip of interest appears to be present in the specimen and therefore the specimen is considered adequate. IMPRESSION: Specimen radiograph demonstrates the hookwire and surrounding specimen that appears to contain biopsy clip. Pathology is pending. Dictated by: Dictated on workstation # [id number]
== END 2017-04-13 13:40 | disposition home or self-care (01) ==
LOC: SDC 07:23
PROVIDERS: ATTEND Surgery
DX: N64.1 Fat necrosis of breast (principal); E03.9 Hypothyroidism, unspecified; E78.5 Hyperlipidemia, unspecified; F41.9 Anxiety disorder, unspecified; F32.9 Major depressive disorder, single episode, unspecified; E66.01 Morbid (severe) obesity due to excess calories; Z68.41 Body mass index [BMI] 40.0-44.9, adult; Z79.899 Other long term (current) drug therapy
CPT/HCPCS: 19081; 76098; 87081

== ENCOUNTER → 2017-09-29 | Outpatient (CLI) | payer BC ==
[~2017-09-29] MED LIST changes: +ACHD5005 PO; +DOCU-143 PO
--- NOTE | 2017-09-29 13:50 | Diagnostic Imaging Report ---
Indication: Six-month followup. The patient is status post right breast biopsy with benign result. Comparison: Correlation is made with prior mammograms from 04/13/2017, 03/23/2017, 03/20/2017 and 03/07/2017. Findings: Postbiopsy changes in the upper inner aspect of the right breast are seen. There is residual increased density at this site likely owing to scarring. Benign-appearing nodular densities posterior to this in the inferior right breast are stable dating back to 2014. No new mass or malignant-appearing microcalcifications are seen. The right axilla is unremarkable. Impression: BI-RADS category 3 Postbiopsy changes in the right breast. Bilateral mammography in 6 months is recommended to confirm stability. ACR BI-RADS Category 3: Probably benign findings. Result letter will be mailed to the patient. Note: At least 10% of breast cancer is not imaged by mammography. Dictated by: Dictated on workstation # [id number]
== END ==
LOC: RAD 12:58
PROVIDERS: ATTEND Internal Medicine
DX: N63.10 Unspecified lump in the right breast, unspecified quadrant (principal)

== ENCOUNTER → 2017-10-06 | Outpatient (CLI) | payer BC ==
[~2017-10-06] MED LIST changes: +GADOBUTROL 15 MMOL/15 ML (GADAVIST) VIAL IV ONE
--- NOTE | 2017-10-06 14:04 | Diagnostic Imaging Report ---
PROCEDURE: MR imaging of the brain with and without contrast. TECHNIQUE: Multiplanar, multisequence MR imaging of the brain was performed with and without contrast. INDICATION: Chronic headaches. No prior studies are available for comparison. The ventricles and sulci are within normal limits. No sulcal effacement, midline shift or hemorrhage is detected. There is no diffusion restriction. Normal expected flow-voids within the carotid siphons are seen. No abnormal enhancement following contrast administration is seen. The corpus callosum is unremarkable. The sella and parasellar structures are unremarkable. IMPRESSION: Unremarkable pre-and postcontrast MRI of the brain. Dictated by: Dictated on workstation # [id number]
== END ==
LOC: RAD 13:03
PROVIDERS: ATTEND Nurse Practitioner Family
DX: G44.219 Episodic tension-type headache, not intractable (principal); G43.709 Chronic migraine without aura, not intractable, without status migrainosus
CPT/HCPCS: 70553

== ENCOUNTER → 2018-02-28 | Outpatient (CLI) | payer BC ==
[~2018-02-28] MED LIST changes: -GADOBUTROL 15 MMOL/15 ML (GADAVIST) VIAL IV ONE
--- NOTE | 2018-02-28 19:30 | Diagnostic Imaging Report ---
INDICATION: Status post right breast biopsy with benign result. Study is performed for followup. COMPARISON: Correlation is made with prior mammogram on the right on 09/29/2017 and 03/23/2017 as well as bilateral mammogram on 03/06/2017 and 04/11/2016. TECHNIQUE: 2D and 3D bilateral diagnostic mammography was performed with computer-aided detection (CAD) system. FINDINGS: Scattered fibroglandular densities are identified bilaterally. Post-biopsy changes in the upper-inner right breast are again noted and appear improved when compared with prior mammogram from September. No new mass is seen. No malignant appearing microcalcifications are seen. Benign nodule in the posterior right breast is stable. Left breast is unremarkable. The axillae are unremarkable. IMPRESSION: Stable bilateral mammograms. No mammographic features suspicious for malignancy are identified. ACR BI-RADS Category 2: Benign findings. Result letter will be mailed to the patient. Note: At least 10% of breast cancer is not imaged by mammography. Dictated by: Dictated on workstation # [id number]
== END ==
LOC: RAD 13:35
PROVIDERS: ATTEND Internal Medicine
DX: R92.8 Other abnormal and inconclusive findings on diagnostic imaging of breast (principal)
CPT/HCPCS: 77066

== ENCOUNTER → 2020-03-11 | Outpatient (CLI) | payer BC ==
[~2020-03-11] MED LIST changes: +LIOT5TAB10 PO; -LIOT5TAB3 PO
== END ==
LOC: RAD 15:15
PROVIDERS: ATTEND Internal Medicine
DX: Z12.31 Encounter for screening mammogram for malignant neoplasm of breast (principal)
CPT/HCPCS: 77063; 77067

== ENCOUNTER → 2020-03-23 | Outpatient (CLI) | payer BC ==
--- NOTE | 2020-03-23 14:53 | Diagnostic Imaging Report ---
INDICATION: Right breast density. Patient presents for additional views. COMPARISON: Correlation is made with the recent screening exam from 03/11/2020. TECHNIQUE: Unilateral right 2D and 3D diagnostic mammography was performed. This included spot compression CC, rolled CC, and conventional 90 degree lateral views. The current study was evaluated with a Computer Aided Detection (CAD) system. FINDINGS: There is a tiny circumscribed nodule in the 6 o'clock retroareolar right breast. This has fairly benign features. No other suspicious mass is identified. IMPRESSION: Tiny circumscribed nodular density in the 6 o'clock retroareolar right breast. Further evaluation with ultrasound is recommended and will be performed today. ACR BI-RADS Category 0: Incomplete. (Needs additional imaging evaluation). Result letter will be mailed to the patient. Note: At least 10% of breast cancer is not imaged by mammography. Dictated by: Dictated on workstation # [id number]
--- NOTE | 2020-03-23 15:07 | Diagnostic Imaging Report ---
INDICATION: Right breast density. COMPARISON: Correlation is made with the diagnostic mammogram from earlier this same day as well as a screening mammogram from 03/11/2020. FINDINGS: Sonographic interrogation of the retroareolar area and the 6 o'clock location of the right breast was performed. The retroareolar region is unremarkable. No mass is identified. There is a benign-appearing hypoechoic nodule at the 6 o'clock location 5 cm from the nipple measuring 7 mm x 4 mm. This is visualized mammographically and has been stable. No other masses are seen. IMPRESSION: No sonographic abnormality is identified in the retroareolar right breast. The tiny nodule noted mammographically has fairly benign features but a followup right mammogram in 6 months is recommended to show continued stability. ACR BI-RADS Category 3: Probably benign findings. Dictated by: Dictated on workstation # [id number]
== END ==
LOC: RAD 13:36
PROVIDERS: ATTEND Internal Medicine
DX: N63.10 Unspecified lump in the right breast, unspecified quadrant (principal)
CPT/HCPCS: 76642; 77065; G0279

== ENCOUNTER → 2020-10-01 | Outpatient (CLI) | payer BC ==
--- NOTE | 2020-10-01 17:46 | Diagnostic Imaging Report ---
INDICATION: Six-month follow-up right breast density. CORRELATION is made with prior mammograms from 03/11/2020 as well as 03/08/2019 and 02/28/2018. Unilateral right 2-D and 3-D diagnostic mammography was performed with CAD. Scattered fibroglandular densities in the right breast are noted. Benign nodules medial right breast are stable. Previously noted nodule in the retroareolar right breast on prior exam is not well-seen on today's study. No new mass or malignant appearing microcalcifications are seen. Right axilla is unremarkable. IMPRESSION: BI-RADS 2 Stable right mammogram with no mammographic features suspicious for malignancy. Patient should return in 6 months for bilateral screening mammogram. ACR BI-RADS Category 0: Incomplete. (Needs additional imaging evaluation). Result letter will be mailed to the patient. Note: At least 10% of breast cancer is not imaged by mammography. Dictated by: Dictated on workstation # [id number]
== END ==
LOC: RAD 12:58
PROVIDERS: ATTEND Internal Medicine
DX: N63.10 Unspecified lump in the right breast, unspecified quadrant (principal)
CPT/HCPCS: 77065; G0279

== ENCOUNTER → 2021-03-26 | Outpatient (CLI) | payer BC ==
--- NOTE | 2021-03-29 11:32 | Diagnostic Imaging Report ---
INDICATION: Routine screening. Comparison is made with prior mammogram from 03/11/2020 and 03/08/2019. 2-D and 3-D bilateral screening mammography was performed with CAD. Scattered fibroglandular densities are identified bilaterally. Benign-appearing nodules in the right breast appears stable. No spiculated mass or malignant-appearing microcalcifications are seen. Axillae are unremarkable. IMPRESSION: BI-RADS Category 2 No mammographic features suspicious for malignancy are identified. ACR BI-RADS Category 2: Benign findings. Result letter will be mailed to the patient. Note: At least 10% of breast cancer is not imaged by mammography. Dictated by: Dictated on workstation # [id number]
== END ==
LOC: RAD 11:00
PROVIDERS: ATTEND Internal Medicine
DX: Z12.31 Encounter for screening mammogram for malignant neoplasm of breast (principal)
CPT/HCPCS: 77063; 77067

== ENCOUNTER → 2021-04-30 | Outpatient (CLI) | payer BC | LOC: LABNPT 06:08 | PROVIDERS: ATTEND Emergency Medicine | DX: Z01.812 Encounter for preprocedural laboratory examination (principal); Z20.822 Contact with and (suspected) exposure to COVID-19 | CPT/HCPCS: 87635 ==

== ENCOUNTER 2021-10-13 14:56 | Outpatient (CLI) | payer BC | END 2021-10-13 15:15 | LOC: SLEEP 14:56 | PROVIDERS: ATTEND Nurse Practitioner | DX: G47.10 Hypersomnia, unspecified (principal) | CPT/HCPCS: G0399 ==

== ENCOUNTER → 2022-03-28 | Outpatient (CLI) | payer BC ==
--- NOTE | 2022-03-28 10:12 | Diagnostic Imaging Report ---
INDICATION: Routine screening. Comparison is made with prior mammogram 03/26/2021 and 03/11/2020. 2-D and 3-D bilateral screening mammography was performed with CAD. Scattered fibroglandular densities are identified bilaterally. Nodular densities in the right breast appear stable. No spiculated mass or malignant-appearing microcalcifications are seen. Axillae are unremarkable. IMPRESSION: No mammographic features suspicious for malignancy are identified. ACR BI-RADS Category 2: Benign findings. Result letter will be mailed to the patient. Note: At least 10% of breast cancer is not imaged by mammography. BI-RADS Category 2 Dictated by: Dictated on workstation # [id number]
== END ==
LOC: RAD 08:39
PROVIDERS: ATTEND Internal Medicine
DX: Z12.31 Encounter for screening mammogram for malignant neoplasm of breast (principal)
CPT/HCPCS: 77063; 77067

== ENCOUNTER → 2022-08-03 | Outpatient (CLI) | payer BC ==
--- NOTE | 2022-08-03 17:10 | Diagnostic Imaging Report ---
INDICATION: No injury, however, back pain and rib pain. FINDINGS: Frontal and lateral thoracic radiographs showed normal vertebral statures aligned anatomically. No fracture or bony destructive process. IMPRESSION: Unremarkable radiographic appearance of the anatomically aligned thoracic spine. Dictated by: Dictated on workstation # [id number]
--- NOTE | 2022-08-03 17:27 | Diagnostic Imaging Report ---
INDICATION: Chest pain. Chest wall pain. COMPARISON: None FINDINGS: Frontal radiographic view of the chest demonstrates normal cardiac silhouette and pulmonary vasculature. Lungs are clear as well. There is no focal consolidation, large effusion, nor pneumothorax. Multiple dedicated radiographic views of the right ribs were also obtained. No healing or displaced rib fractures are seen on either side. No other acute appearing osseous abnormalities identified. IMPRESSION: 1. No acute cardiopulmonary process. 2. No healing or displaced right-sided rib fractures. Dictated by: Dictated on workstation # [id number]
== END ==
LOC: RAD 11:20
PROVIDERS: ATTEND Registered Nurse Critical Care Medicine
DX: M51.36 Other intervertebral disc degeneration, lumbar region (principal); R25.2 Cramp and spasm; F32.A Depression, unspecified; E03.9 Hypothyroidism, unspecified
CPT/HCPCS: 71101; 72072

== ENCOUNTER → 2023-05-01 | Outpatient (CLI) | payer BC ==
--- NOTE | 2023-05-02 09:41 | Diagnostic Imaging Report ---
3-D bilateral screening mammogram with CAD. The current study was also evaluated with a Computer Aided Detection (CAD) system. This study was compared to the prior exam of 03/28/2022, 03/26/2021 and 03/11/2020. At this time there are no current complaints. The current study was also evaluated with a Computer Aided Detection (CAD) system. FINDINGS: There are scattered fibroglandular densities in both breasts which could obscure a lesion. Overall, there does not appear to have been any significant change when compared to the prior exam. No primary or secondary sign of malignancy is noted. IMPRESSION: There is no radiographic evidence for malignancy. ACR category 1: Negative Dictated by: Dictated on workstation # [id number]
== END ==
LOC: RAD 15:45
PROVIDERS: ATTEND Internal Medicine
DX: Z12.31 Encounter for screening mammogram for malignant neoplasm of breast (principal)
CPT/HCPCS: 77063; 77067